=== PATIENT | female | born 1960 | race Caucasian/White ===

== ENCOUNTER → 2019-10-10 | Outpatient (CLI) | payer MEDICARE ==
--- NOTE | 2019-10-11 10:28 | MM ---
Reason for exam: screening (asymptomatic). Last mammogram was performed 17 years and 10 months ago. History: Patient is postmenopausal and has history of other cancer at age 41. Core biopsy of the left breast. Benign excisional biopsy of the right breast. Physical Findings: A clinical breast exam by your physician is recommended on an annual basis and results should be correlated with mammographic findings. MG 3D Screening Mammo W/Cad Bilateral CC and MLO view(s) were taken. No prior studies available for comparison. The breast tissue is heterogeneously dense. This may lower the sensitivity of mammography. Finding: There is a 6 mm circumscribed round mass located 9-10cm from the nipple in the upper outer quadrant of the right breast, suspect benign lymph node but advise ultrasound to confirm without prior mammogram. Previous mammotome biopsy in the left breast. Asymmetric breast tissue left breast at clip. ASSESSMENT: Incomplete: need additional imaging evaluation, BI-RAD 0 RECOMMENDATION: Ultrasound of the right breast. [facility] will attempt to contact patient to return for ultrasound.
== END | disposition home or self-care (01) ==
LOC: RADMAMWWP 11:19
PROVIDERS: ATTEND Family Medicine
DX: Z12.31 Encounter for screening mammogram for malignant neoplasm of breast (principal)
CPT/HCPCS: 77063; 77067

== ENCOUNTER → 2019-10-20 | Outpatient (CLI) | payer MEDICARE ==
--- NOTE | 2019-10-20 10:53 | USB ---
Reason for exam: additional evaluation requested from abnormal screening. History: Patient is postmenopausal and has history of other cancer at age 41. Core biopsy of the left breast. Benign excisional biopsy of the right breast. Physical Findings: Nurse did not find any significant physical abnormalities on exam. US Breast Workup Limited RT Right limited breast ultrasound including focal area of concern, retroareolar and axilla demonstrates a 5 x 2 x 3mm oval, lymph node at 10 o'clock corresponds with mammogram and a 10 x 4mm oval lymph node at the axilla tail. These results were verbally communicated with the patient and result sheet given to the patient on 10/20/19. ASSESSMENT: Benign, BI-RAD 2 RECOMMENDATION: Return to routine screening mammogram schedule for both breasts.
== END | disposition home or self-care (01) ==
LOC: RADUSWWP 10:11
PROVIDERS: ATTEND Family Medicine
DX: R92.8 Other abnormal and inconclusive findings on diagnostic imaging of breast (principal)

== ENCOUNTER → 2020-02-29 | Outpatient (CLI) | payer MEDICARE ==
--- NOTE | 2020-02-29 16:07 | US ---
EXAMINATION TYPE: US venous doppler duplex LE LT DATE OF EXAM: 02/29/2020 3:50 PM COMPARISON: NONE CLINICAL HISTORY: 59-year-old female R60.6 EDEMA. Localized swelling and discoloration left LE medial ly after dog ran into leg SIDE PERFORMED: Left TECHNIQUE: The lower extremity deep venous system is examined utilizing real time linear array sonog jon with graded compression, doppler sonography and color-flow sonography. FINDINGS: VESSELS IMAGED: Common Femoral Vein Deep Femoral Vein Greater Saphenous Vein * Femoral Vein Popliteal Vein Small Saphenous Vein * Proximal Calf Veins (* superficial vessels) Left Leg: Negative for DVT. Meeting Planner notes: Complex fluid area is seen at lower left medial at palpable = 6.2 x 4.5 x 1.0cm. L eft groin lymph node is also seen = 2.6 x 1.7 x 0.7cm. While this is mildly enlarged, the cortex is very uniform and thin. IMPRESSION: 1. No evidence for DVT within the left lower extremity imaged from the groin to the upper calf. 2. Complex fluid within the subcutaneous tissues measuring 2.6 x 1.7 x 0.7 cm medial leg. Correlate f or hematoma or abscess. This can be followed clinically to ensure gradual involution.
== END | disposition home or self-care (01) ==
LOC: RADUSWWP 15:24
PROVIDERS: ATTEND Family Medicine
DX: R60.0 Localized edema (principal)

== ENCOUNTER → 2020-06-19 | Outpatient (CLI) | payer MEDICARE ==
[2020-06-19 22:43] LABS: Albumin 2.6 g/dL (3.80-4.90); Albumin/Globulin Ratio 0.93 (1.60-3.17); Anion Gap 7.1 mmol/L (4.00-12.00); BUN/Creat Ratio 15.56 Ratio (12.00-20.00); Calcium 8.2 mg/dL (8.7-10.3); Carbon Dioxide 28.9 mmol/L (21.6-31.8); Globulin 2.8 g/dL (1.6-3.3); Potassium 5.7 mmol/L (3.5-5.5); Total Bilirubin 0.5 mg/dL (0.2-1.2); Total Protein 5.4 g/dL (6.2-8.2)
== END | disposition home or self-care (01) ==
LOC: LABWHC1 09:47
PROVIDERS: ATTEND Nurse Practitioner Adult Health
DX: R60.0 Localized edema (principal)
CPT/HCPCS: 36415; 80053; 83880

== ENCOUNTER 2020-10-16 14:21 | Inpatient (IN) | payer MEDICARE ==
[2020-10-16] MEDS ORDERED: SODIUM CHLORIDE 0.9% 500 ML 500 ML IV ONE (14:27)
[2020-10-16] MEDS ORDERED: NALOXONE 0.4 MG/ML 1 ML VIAL IM STA (14:27)
[2020-10-16] MEDS ORDERED: SODIUM CHLORIDE 0.9% 1,000 ML IV ONE ×2 (14:27→18:11)
[2020-10-16 14:33] LABS: Glucose,Whole Blood 64 mg/dL (75-99)
[2020-10-16 14:46] LABS: Glucose,Whole Blood 140 mg/dL (75-99)
[2020-10-16] MEDS: DEXTROSE 50% SYRINGE 50 ML IVP STA (14:58)
[2020-10-16 15:03] LABS: Appearance,Urine Cloudy (Clear); Bilirubin,Urine 1+ (Negative); Blood,Urine Negative (Negative); Color,Urine Dark Brown; Glucose,Urine (UA) Negative (Negative); Hyaline Casts,Urine 1 /lpf (0-2); Ketones,Urine Negative (Negative); Leukocyte Esterase,Urine Negative (Negative); Mucus,Urine Rare /hpf; Nitrite,Urine Negative (Negative); PH, Urine 5.5 (5.0-8.0); Protein,Urine Negative (Negative); RBC,Urine 2 /hpf (0-5); Specific Gravity,Urine 1.019 (1.001-1.035); Squamous Epithelial Cell,Urine <1 /hpf (0-4); WBC,Urine 5 /hpf (0-5)
--- NOTE | 2020-10-16 15:07 | ED ---
General Adult HPI - General Chief complaint: Altered Mental Status Stated complaint: unresponsive Time Seen by Provider: 10/16/20 14:25 Source: patient, EMS, RN notes reviewed, old records reviewed Mode of arrival: EMS - History of Present Illness Initial comments: This is a 60-year-old female presents emergency Department because she has been unresponsive. Patient has a history of pancreatic cancer per EMS the did not know what stage it was. Patient is unable to give any history. All history is from EMS. They stated that last night the patient was fine and this morning when woke up she has been unresponsive for the last 6 hours and he decided to call the ambulance after 6 hours. According to the the patient is not been able to verbally respond were but only will respond to some tactile stimulation and she would only responded with a groan hormone. There's been no history of any recent fevers. - Related Data Home Medications Medication Instructions Recorded Confirmed buprenorphine HCL [Subutex] 8 mg SL BID 09/16/15 10/16/20 levETIRAcetam [Keppra] 750 mg PO BID 09/16/15 10/16/20 Cholestyramine (with Sugar) 4 gm PO QID 10/16/20 10/16/20 [Cholestyramine Packet] Cyclobenzaprine [Flexeril] 10 mg PO TID PRN 10/16/20 10/16/20 Triamterene-Hctz 37.5-25Mg 1 cap PO DAILY 10/16/20 10/16/20 [Dyazide 37.5-25 Capsule] clonazePAM 1 mg PO TID 10/16/20 10/16/20 Allergies Allergy/AdvReac Type Severity Reaction Status Date / Time NSAIDS (Non-Steroidal Allergy Unknown Verified 10/16/20 15:46 Anti-Inflamma steroids Allergy Unknown Uncoded 09/16/15 18:44 Review of Systems ROS Statement: Those systems with pertinent positive or pertinent negative responses have been documented in the HPI. ROS Other: All systems not noted in ROS Statement are negative. Past Medical History Past Medical History: Cancer, Memory Impairment, Osteoarthritis (OA), Seizure Disorder Additional Past Medical History / Comment(s): Annamaria Stoll syndrome, pancreatic cancer,stomach cancer History of Any Multi-Drug Resistant Organisms: None Reported Past Surgical History: Cholecystectomy, Hysterectomy Additional Past Surgical History / Comment(s): gastrectomy and head of pancreas removed bunionectomy to be bilateral bilateral tubal ligation Past Psychological History: Anxiety, Depression Smoking Status: Unknown if ever smoked Past Alcohol Use History: None Reported Past Drug Use History: Marijuana General Exam - General Exam Comments Initial Comments: GENERAL: Patient is well-developed and well-nourished. Patient is nontoxic and well- hydrated and is in no acute distress. ENT: Neck is soft and supple. No significant lymphadenopathy is noted. Oropharynx is clear. Dry mucous membranes. Neck has full range of motion without eliciting any pain. EYES: The sclera were anicteric and conjunctiva were pink and moist. Extraocular movements were intact and pupils were equal round and reactive to light. Eyelids were unremarkable. PULMONARY: Unlabored respirations. Good breath sounds bilaterally. No audible rales rhonchi or wheezing was noted. CARDIOVASCULAR: There is a regular rate and rhythm without any murmurs gallops or rubs. ABDOMEN: Soft and nontender with normal bowel sounds. SKIN: Skin is clear with no lesions or rashes and otherwise unremarkable. NEUROLOGIC: Patient is not alert she is only responsive to painful stimuli. MUSCULOSKELETAL: Normal extremities with adequate strength and full range of motion. LYMPHATICS: No significant lymphadenopathy is noted PSYCHIATRIC: Unable to evaluate Course Vital Signs 10/16/20 10/16/20 10/16/20 14:24 14:58 15:01 Temperature 97.9 F Pulse Rate 98 110 H Respiratory 10 L 10 L 12 Rate Blood Pressure 93/58 106/73 O2 Sat by Pulse 98 97 Oximetry 10/16/20 10/16/20 16:01 17:50 Temperature Pulse Rate 96 108 H Respiratory 12 14 Rate Blood Pressure 106/65 113/74 O2 Sat by Pulse 98 94 L Oximetry Medical Decision Making - Medical Decision Making EKG shows sinus tachycardia at 170s per minute TN interval 138 QRS 78 QT interval 324 QTC is 432. Patient's EKG shows no ST segment elevation or depression. CT of the brain showed no acute abnormality. Chest x-ray showed patchy but he is alert and infiltrate. According to the there was no signs of any cough or difficulty breathing yesterday or today I spoke with Dr. Warren he agreed to admit the patient admitted the patient remaining orders. CAT scan of the abdomen pelvis was not done because the patient was unable to tolerate dye Patient was given lactulose in the emergency department - Lab Data Result diagrams: 10/16/20 14:50 10/16/20 14:50 Lab Results 10/16/20 10/16/20 10/16/20 Range/Units 14:26 14:44 14:50 WBC 13.0 H (3.8-10.6) k/uL RBC 3.85 (3.80-5.40) m/uL Hgb 12.1 (11.4-16.0) gm/dL Hct 37.2 (34.0-46.0) % MCV 96.6 (80.0-100.0) fL MCH 31.4 (25.0-35.0) pg MCHC 32.5 (31.0-37.0) g/dL RDW 13.0 (11.5-15.5) % Plt Count 55 L (150-450) k/uL MPV 10.1 Neutrophils % 89 % Lymphocytes % 8 % Monocytes % 2 % Eosinophils % 1 % Basophils % 0 % Neutrophils # 11.5 H (1.3-7.7) k/uL Lymphocytes # 1.0 (1.0-4.8) k/uL Monocytes # 0.3 (0-1.0) k/uL Eosinophils # 0.1 (0-0.7) k/uL Basophils # 0.0 (0-0.2) k/uL Manual Slide Review Performed Poikilocytosis (manual Present Target Cells Present Stomatocytes Present Crenated Cell Present PT (9.0-12.0) sec INR (<1.2) APTT (22.0-30.0) sec Sodium (137-145) mmol/L Potassium (3.5-5.1) mmol/L Chloride (98-107) mmol/L Carbon Dioxide (22-30) mmol/L Anion Gap mmol/L BUN (7-17) mg/dL Creatinine (0.52-1.04) mg/dL Est GFR (CKD-EPI)AfAm (>60 ml/min/1.73 sqM) Est GFR (CKD-EPI)NonAf (>60 ml/min/1.73 sqM) Glucose (74-99) mg/dL POC Glucose (mg/dL) 64 L 140 H (75-99) mg/dL POC Glu Skein Tier ID Singer, Brielle Singer, Brielle Calcium (8.4-10.2) mg/dL Total Bilirubin (0.2-1.3) mg/dL AST (14-36) U/L ALT (4-34) U/L Alkaline Phosphatase (38-126) U/L Ammonia (<30) umol/L Troponin I (0.000-0.034) ng/mL Total Protein (6.3-8.2) g/dL Albumin (3.5-5.0) g/dL Urine Color Urine Appearance (Clear) Urine pH (5.0-8.0) Ur Specific [place] (1.001-1.035) Urine Protein (Negative) Urine Glucose (UA) (Negative) Urine Ketones (Negative) Urine Blood (Negative) Urine Nitrite (Negative) Urine Bilirubin (Negative) Urine Urobilinogen (<2.0) mg/dL Ur Leukocyte Esterase (Negative) Urine RBC (0-5) /hpf Urine WBC (0-5) /hpf Ur Squamous Epith Cells (0-4) /hpf Hyaline Casts (0-2) /lpf Urine Mucus (None) /hpf Urine Opiates Screen (NotDetected) Ur Oxycodone Screen (NotDetected) Urine Methadone Screen (NotDetected) Ur Propoxyphene Screen (NotDetected) Ur Barbiturates Screen (NotDetected) U Tricyclic Antidepress (NotDetected) Ur Phencyclidine Scrn (NotDetected) Ur Amphetamines Screen (NotDetected) U Methamphetamines Scrn (NotDetected) U Benzodiazepines Scrn (NotDetected) Urine Cocaine Screen (NotDetected) U Marijuana (THC) Screen (NotDetected) 10/16/20 10/16/20 10/16/20 Range/Units 14:50 14:50 14:50 WBC (3.8-10.6) k/uL RBC (3.80-5.40) m/uL Hgb (11.4-16.0) gm/dL Hct (34.0-46.0) % MCV (80.0-100.0) fL MCH (25.0-35.0) pg MCHC (31.0-37.0) g/dL RDW (11.5-15.5) % Plt Count (150-450) k/uL MPV Neutrophils % % Lymphocytes % % Monocytes % % Eosinophils % % Basophils % % Neutrophils # (1.3-7.7) k/uL Lymphocytes # (1.0-4.8) k/uL Monocytes # (0-1.0) k/uL Eosinophils # (0-0.7) k/uL Basophils # (0-0.2) k/uL Manual Slide Review Poikilocytosis (manual Target Cells Stomatocytes Crenated Cell PT 20.2 H (9.0-12.0) sec INR 2.1 H (<1.2) APTT 43.1 H (22.0-30.0) sec Sodium 134 L (137-145) mmol/L Potassium 4.4 (3.5-5.1) mmol/L Chloride 103 (98-107) mmol/L Carbon Dioxide 27 (22-30) mmol/L Anion Gap 4 mmol/L BUN 14 (7-17) mg/dL Creatinine 1.47 H (0.52-1.04) mg/dL Est GFR (CKD-EPI)AfAm 44 (>60 ml/min/1.73 sqM) Est GFR (CKD-EPI)NonAf 38 (>60 ml/min/1.73 sqM) Glucose 175 H (74-99) mg/dL POC Glucose (mg/dL) (75-99) mg/dL POC Glu Skein Tier ID Calcium 6.5 L (8.4-10.2) mg/dL Total Bilirubin 2.1 H (0.2-1.3) mg/dL AST 65 H (14-36) U/L ALT 71 H (4-34) U/L Alkaline Phosphatase 215 H (38-126) U/L Ammonia (<30) umol/L Troponin I (0.000-0.034) ng/mL Total Protein 3.7 L (6.3-8.2) g/dL Albumin 1.4 L (3.5-5.0) g/dL Urine Color Dark Brown Urine Appearance Cloudy H (Clear) Urine pH 5.5 (5.0-8.0) Ur Specific [place] 1.019 (1.001-1.035) Urine Protein Negative (Negative) Urine Glucose (UA) Negative (Negative) Urine Ketones Negative (Negative) Urine Blood Negative (Negative) Urine Nitrite Negative (Negative) Urine Bilirubin 1+ H (Negative) Urine Urobilinogen 3.0 (<2.0) mg/dL Ur Leukocyte Esterase Negative (Negative) Urine RBC 2 (0-5) /hpf Urine WBC 5 (0-5) /hpf Ur Squamous Epith Cells <1 (0-4) /hpf Hyaline Casts 1 (0-2) /lpf Urine Mucus Rare H (None) /hpf Urine Opiates Screen Not Detected (NotDetected) Ur Oxycodone Screen Not Detected (NotDetected) Urine Methadone Screen Not Detected (NotDetected) Ur Propoxyphene Screen Not Detected (NotDetected) Ur Barbiturates Screen Not Detected (NotDetected) U Tricyclic Antidepress Detected H (NotDetected) Ur Phencyclidine Scrn Not Detected (NotDetected) Ur Amphetamines Screen Not Detected (NotDetected) U Methamphetamines Scrn Not Detected (NotDetected) U Benzodiazepines Scrn Not Detected (NotDetected) Urine Cocaine Screen Not Detected (NotDetected) U Marijuana (THC) Screen Not Detected (NotDetected) 10/16/20 10/16/20 Range/Units 14:50 14:50 WBC (3.8-10.6) k/uL RBC (3.80-5.40) m/uL Hgb (11.4-16.0) gm/dL Hct (34.0-46.0) % MCV (80.0-100.0) fL MCH (25.0-35.0) pg MCHC (31.0-37.0) g/dL RDW (11.5-15.5) % Plt Count (150-450) k/uL MPV Neutrophils % % Lymphocytes % % Monocytes % % Eosinophils % % Basophils % % Neutrophils # (1.3-7.7) k/uL Lymphocytes # (1.0-4.8) k/uL Monocytes # (0-1.0) k/uL Eosinophils # (0-0.7) k/uL Basophils # (0-0.2) k/uL Manual Slide Review Poikilocytosis (manual Target Cells Stomatocytes Crenated Cell PT (9.0-12.0) sec INR (<1.2) APTT (22.0-30.0) sec Sodium (137-145) mmol/L Potassium (3.5-5.1) mmol/L Chloride (98-107) mmol/L Carbon Dioxide (22-30) mmol/L Anion Gap mmol/L BUN (7-17) mg/dL Creatinine (0.52-1.04) mg/dL Est GFR (CKD-EPI)AfAm (>60 ml/min/1.73 sqM) Est GFR (CKD-EPI)NonAf (>60 ml/min/1.73 sqM) Glucose (74-99) mg/dL POC Glucose (mg/dL) (75-99) mg/dL POC Glu Skein Tier ID Calcium (8.4-10.2) mg/dL Total Bilirubin (0.2-1.3) mg/dL AST (14-36) U/L ALT (4-34) U/L Alkaline Phosphatase (38-126) U/L Ammonia 129 H (<30) umol/L Troponin I 0.069 H* (0.000-0.034) ng/mL Total Protein (6.3-8.2) g/dL Albumin (3.5-5.0) g/dL Urine Color Urine Appearance (Clear) Urine pH (5.0-8.0) Ur Specific [place] (1.001-1.035) Urine Protein (Negative) Urine Glucose (UA) (Negative) Urine Ketones (Negative) Urine Blood (Negative) Urine Nitrite (Negative) Urine Bilirubin (Negative) Urine Urobilinogen (<2.0) mg/dL Ur Leukocyte Esterase (Negative) Urine RBC (0-5) /hpf Urine WBC (0-5) /hpf Ur Squamous Epith Cells (0-4) /hpf Hyaline Casts (0-2) /lpf Urine Mucus (None) /hpf Urine Opiates Screen (NotDetected) Ur Oxycodone Screen (NotDetected) Urine Methadone Screen (NotDetected) Ur Propoxyphene Screen (NotDetected) Ur Barbiturates Screen (NotDetected) U Tricyclic Antidepress (NotDetected) Ur Phencyclidine Scrn (NotDetected) Ur Amphetamines Screen (NotDetected) U Methamphetamines Scrn (NotDetected) U Benzodiazepines Scrn (NotDetected) Urine Cocaine Screen (NotDetected) U Marijuana (THC) Screen (NotDetected) Critical Care Time Critical Care Time: Yes Total Critical Care Time: 35 Disposition Clinical Impression: Hepatic encephalopathy, Elevated troponin, Hypocalcemia, Elevated liver enzymes, Unresponsive, Renal insufficiency Disposition: ADMITTED IP TO THIS HOSP Referrals: None,Stated [REFERRING] - 1-2 days Time of Disposition: 18:09
[2020-10-16 15:08] LABS: Albumin 1.4 g/dL (3.5-5.0); Calcium 6.5 mg/dL (8.4-10.2); Potassium 4.4 mmol/L (3.5-5.1); Total Bilirubin 2.1 mg/dL (0.2-1.3); Total Protein 3.7 g/dL (6.3-8.2)
[2020-10-16 15:10] LABS: INR 2.1 (<1.2); Partial Thromboplastin Time 43.1 sec (22.0-30.0); Prothrombin Time 20.2 sec (9.0-12.0)
[2020-10-16 15:11] LABS: Amphetamine Screen,Urine Not Detected (NotDetected); Barbiturate Screen,Urine Not Detected (NotDetected); Benzodiazepines Screen,Urine Not Detected (NotDetected); Cocaine Screen,Urine Not Detected (NotDetected); Methadone Screen, Urine Not Detected (NotDetected); Opiate Screen,Urine Not Detected (NotDetected); Oxycodone Screen, Urine Not Detected (NotDetected); Phencyclidine Screen,Urine Not Detected (NotDetected); Tricyclic Antidepressant,Urine Detected (NotDetected); Urn Cannabinoid Scrn Not Detected (NotDetected)
[2020-10-16 15:19] LABS: Basophils % (A) 0 %; Eosinophils # (A) 0.1 k/uL (0-0.7); Eosinophils % (A) 1 %; HCT 37.2 % (34.0-46.0); HGB 12.1 gm/dL (11.4-16.0); Lymphocytes % (A) 8 %; MCH 31.4 pg (25.0-35.0); MCHC 32.5 g/dL (31.0-37.0); MCV 96.6 fL (80.0-100.0); Mean Platelet Volume 10.1; Monocytes # (A) 0.3 k/uL (0-1.0); Monocytes % (A) 2 %; Neutrophils # (A) 11.5 k/uL (1.3-7.7); Neutrophils % (A) 89 %; RBC 3.85 m/uL (3.80-5.40)
--- NOTE | 2020-10-16 15:24 | XR ---
EXAMINATION TYPE: XR chest 1V portable DATE OF EXAM: 10/16/2020 COMPARISON: NONE HISTORY: Altered mental status and weakness. TECHNIQUE: Single AP portable frontal view of the chest is obtained. FINDINGS: There is low lung volumes and patchy left basilar opacity. Suspect scattered right mid an d basilar linear atelectasis. No pneumothorax seen bilaterally. The cardiac silhouette size is within normal limits with atherosclerotic change aortic knob. Underlying scoliosis. Cholecystectomy clips. IMPRESSION: Patchy right basilar linear atelectatic changes. Slightly more suspicious left basilar a cute infiltrate and/or atelectasis with suspected small to tiny left pleural effusion.
--- NOTE | 2020-10-16 15:29 | CT ---
EXAMINATION TYPE: CT brain wo con DATE OF EXAM: 10/16/2020 HISTORY: Unresponsive, altered mental status, history of pancreatic cancer. CT DLP: 2107.4 mGycm. Automated Exposure Control for Dose Reduction was Utilized. TECHNIQUE: CT scan of the head is performed without contrast. COMPARISON: MRI brain January 12, 2012 FINDINGS: There is no acute intracranial hemorrhage or midline shift identified. There is mild diff use ventricular and sulcal prominence consistent with diffuse age-related cerebral atrophy. There is mild low-attenuation in the periventricular white matter consistent with chronic small vessel ischem ic change. Nasal septum deviated to left of midline. The globes are intact and the visualized sinuse s are clear. IMPRESSION: No acute intracranial hemorrhage or midline shift. There is mild diffuse cerebral atrop hy and chronic small vessel ischemic change noted.
[2020-10-16 16:00] LABS: Stomatocytes Present
[2020-10-16 16:01] LABS: Crenated RBC Present; Platelet Count 55 k/uL (150-450); Poikilocytosis (M) Present; Target Cells Present
[2020-10-16] MEDS ORDERED: CALCIUM CHLORIDE 100 MG/ML 10 ML SYRINGE IVP STA (16:13)
[2020-10-16] MEDS ORDERED: LACTULOSE 20 GM/30 ML CUP PO ONE (16:13)
--- NOTE | 2020-10-16 17:18 | XR ---
EXAMINATION TYPE: XR chest 1V DATE OF EXAM: 10/16/2020 COMPARISON: Earlier same day. HISTORY: NG tube placement. TECHNIQUE: Single frontal view of the chest is obtained. FINDINGS: There is interval placement of an NG tube with single looping of the distal portion and ti p overlying the distal esophagus. There are unchanged mild perihilar and bibasilar opacities. No pleu ral effusion, or pneumothorax seen. The cardiac silhouette size is within normal limits. The osseo us structures are intact. IMPRESSION: NG tube with tip overlying the distal esophagus. Recommend advancing at least 5 cm. Otherwise no significant change.
[2020-10-16 20:02] LABS: Glucose,Whole Blood 98 mg/dL (75-99)
[2020-10-16] MEDS ORDERED: NALOXONE 0.4 MG/ML 1 ML VIAL IV PRN (20:48)
[2020-10-16 20:54] LABS: ABG Base Excess 5.4 mmol/L; ABG HCO3 29 mmol/L (21-25); ABG Oxygen Saturation 83.4 % (94-97); ABG PCO2 37 mmHg (35-45); ABG PH 7.49 (7.35-7.45); ABG TCO2 30 mmol/L (19-24); Allen Test Performed? Yes
[2020-10-16 21:29] LABS: ABG PO2 52 mmHg (83-108)
[2020-10-16] MEDS: PIPERACILLIN-TAZOBACTAM 3.375 GM in SODIUM CHLORIDE 0.9% 100 ML IVPB SCH (22:25)
[2020-10-16] MEDS: levETIRAcetam IV 750 MG in SODIUM CHLORIDE 0.9% 100 ML IVPB SCH (22:25)
[2020-10-16] MEDS: LACTULOSE 20 GM/30 ML CUP PO SCH ×2 (22:25→22:31)
[2020-10-16] MEDS: SODIUM CHLORIDE 0.9% 1,000 ML IV SCH (22:26)
--- NOTE | 2020-10-17 00:05 | XR ---
EXAMINATION TYPE: XR chest 1V portable DATE OF EXAM: 10/16/2020 COMPARISON: Today HISTORY: Short of breath There is nasogastric tube with the tip overlying the gastroesophageal junction. There is pulmonary in terstitial and airspace edema. There is slight blunting left costophrenic angle. There is chest leads . IMPRESSION: There is pulmonary edema significantly increased compared to the exam 6 hours ago. This c ould be developing RDS. Heart size is normal. Nasogastric tube has a tip over the left upper quadrant and probably at the gastroesophageal junction. Tube is not folded on itself.
[2020-10-17] MEDS ORDERED: PROPOFOL 10 MG/ML 20 ML VIAL IV ONE (01:50)
[2020-10-17] MEDS ORDERED: NOREPINEPHRIN 4 MG-0.9% NS PMX 4 MG/250 ML ML IV ONE ×2 (01:57→17:59)
[2020-10-17] MEDS ORDERED: propofoL 50 ML IV ONE ×5 (02:01→15:36)
[2020-10-17] MEDS ORDERED: FUROSEMIDE 10 MG/ML 4 ML VIAL IV STA (02:14)
--- NOTE | 2020-10-17 03:17 | XR ---
EXAM: XR Chest, 1 View CLINICAL HISTORY: ITS.REASON XR Reason: ICU Management TECHNIQUE: Frontal view of the chest. COMPARISON: Yesterday FINDINGS: Lungs: Moderate amount of airspace opacities in both lungs, more on the left, similar. Pleural space: Unremarkable. No pneumothorax. Mediastinum: Unremarkable. Bones/joints: Osteopenia. Vasculature: Calcified aorta. Tubes, lines and devices: Tip of endotracheal tube is about 5 cm above the alvin. Tip of enteric tube is at the GE junction. IMPRESSION: 1. Tip of endotracheal tube is about 5 cm above the alvin. 2. Tip of enteric tube is at the GE junction. Recommend advancement by at least 12 cm 3. No substantial change in cardiopulmonary findings
[2020-10-17 04:39] LABS: HCT 41.4 % (34.0-46.0); HGB 13.2 gm/dL (11.4-16.0); MCH 32.2 pg (25.0-35.0); MCV 100.6 fL (80.0-100.0); Mean Platelet Volume 10.6; RBC 4.11 m/uL (3.80-5.40); RDW 12.6 % (11.5-15.5)
[2020-10-17 04:41] LABS: Platelet Count 217 k/uL (150-450)
[2020-10-17 04:43] LABS: INR 1.3 (<1.2); Partial Thromboplastin Time 43.9 sec (22.0-30.0); Prothrombin Time 13.6 sec (9.0-12.0)
[2020-10-17 04:44] LABS: Albumin 1.4 g/dL (3.5-5.0); Calcium 7.2 mg/dL (8.4-10.2); Magnesium 1.8 mg/dL (1.6-2.3); Phosphorus 4.7 mg/dL (2.5-4.5); Potassium 3.9 mmol/L (3.5-5.1); Total Bilirubin 3.1 mg/dL (0.2-1.3); Total Protein 3.8 g/dL (6.3-8.2)
[2020-10-17 04:46] LABS: ABG Base Excess -2.3 mmol/L; ABG HCO3 22 mmol/L (21-25); ABG Oxygen Saturation 94.5 % (94-97); ABG PCO2 35 mmHg (35-45); ABG PH 7.41 (7.35-7.45); ABG PO2 101 mmHg (83-108); ABG TCO2 23 mmol/L (19-24); Allen Test Performed? Yes
--- NOTE | 2020-10-17 04:54 | ED ---
Medical Decision Making - Medical Decision Making This addendum is a procedure note. I was called to the ICU for central line placement. Patient had been intubated and was requiring emergency IV access. Patient is a poor peripheral access and requiring multiple medications including propofol infusion and possibly requiring pressor support. Consent is emergent. Please see the procedure note There was a left-sided pneumothorax following the central line. Thoravent pneumothorax catheter was placed. An x-ray following this did not show reinflation of the lung, however the suction tube had been clamped prior to the x-ray. The tube was unclamped and a repeat x-ray did show reinflation of the lung. - Lab Data Result diagrams: 10/17/20 04:23 10/17/20 04:23 Lab Results 10/16/20 10/16/20 10/16/20 Range/Units 14:26 14:44 14:50 WBC 13.0 H (3.8-10.6) k/uL RBC 3.85 (3.80-5.40) m/uL Hgb 12.1 (11.4-16.0) gm/dL Hct 37.2 (34.0-46.0) % MCV 96.6 (80.0-100.0) fL MCH 31.4 (25.0-35.0) pg MCHC 32.5 (31.0-37.0) g/dL RDW 13.0 (11.5-15.5) % Plt Count 55 L (150-450) k/uL MPV 10.1 Neutrophils % 89 % Lymphocytes % 8 % Monocytes % 2 % Eosinophils % 1 % Basophils % 0 % Neutrophils # 11.5 H (1.3-7.7) k/uL Lymphocytes # 1.0 (1.0-4.8) k/uL Monocytes # 0.3 (0-1.0) k/uL Eosinophils # 0.1 (0-0.7) k/uL Basophils # 0.0 (0-0.2) k/uL Manual Slide Review Performed Poikilocytosis (manual Present Target Cells Present Stomatocytes Present Crenated Cell Present PT (9.0-12.0) sec INR (<1.2) APTT (22.0-30.0) sec Sodium (137-145) mmol/L Potassium (3.5-5.1) mmol/L Chloride (98-107) mmol/L Carbon Dioxide (22-30) mmol/L Anion Gap mmol/L BUN (7-17) mg/dL Creatinine (0.52-1.04) mg/dL Est GFR (CKD-EPI)AfAm (>60 ml/min/1.73 sqM) Est GFR (CKD-EPI)NonAf (>60 ml/min/1.73 sqM) Glucose (74-99) mg/dL POC Glucose (mg/dL) 64 L 140 H (75-99) mg/dL POC Glu Concession Supervisor ID Lucrecia, Brielle Singer, Brielle Calcium (8.4-10.2) mg/dL Total Bilirubin (0.2-1.3) mg/dL AST (14-36) U/L ALT (4-34) U/L Alkaline Phosphatase (38-126) U/L Ammonia (<30) umol/L Troponin I (0.000-0.034) ng/mL Total Protein (6.3-8.2) g/dL Albumin (3.5-5.0) g/dL Urine Color Urine Appearance (Clear) Urine pH (5.0-8.0) Ur Specific [place] (1.001-1.035) Urine Protein (Negative) Urine Glucose (UA) (Negative) Urine Ketones (Negative) Urine Blood (Negative) Urine Nitrite (Negative) Urine Bilirubin (Negative) Urine Urobilinogen (<2.0) mg/dL Ur Leukocyte Esterase (Negative) Urine RBC (0-5) /hpf Urine WBC (0-5) /hpf Ur Squamous Epith Cells (0-4) /hpf Hyaline Casts (0-2) /lpf Urine Mucus (None) /hpf Urine Opiates Screen (NotDetected) Ur Oxycodone Screen (NotDetected) Urine Methadone Screen (NotDetected) Ur Propoxyphene Screen (NotDetected) Ur Barbiturates Screen (NotDetected) U Tricyclic Antidepress (NotDetected) Ur Phencyclidine Scrn (NotDetected) Ur Amphetamines Screen (NotDetected) U Methamphetamines Scrn (NotDetected) U Benzodiazepines Scrn (NotDetected) Urine Cocaine Screen (NotDetected) U Marijuana (THC) Screen (NotDetected) Coronavirus (PCR) (Not Detectd) 10/16/20 10/16/20 10/16/20 Range/Units 14:50 14:50 14:50 WBC (3.8-10.6) k/uL RBC (3.80-5.40) m/uL Hgb (11.4-16.0) gm/dL Hct (34.0-46.0) % MCV (80.0-100.0) fL MCH (25.0-35.0) pg MCHC (31.0-37.0) g/dL RDW (11.5-15.5) % Plt Count (150-450) k/uL MPV Neutrophils % % Lymphocytes % % Monocytes % % Eosinophils % % Basophils % % Neutrophils # (1.3-7.7) k/uL Lymphocytes # (1.0-4.8) k/uL Monocytes # (0-1.0) k/uL Eosinophils # (0-0.7) k/uL Basophils # (0-0.2) k/uL Manual Slide Review Poikilocytosis (manual Target Cells Stomatocytes Crenated Cell PT 20.2 H (9.0-12.0) sec INR 2.1 H (<1.2) APTT 43.1 H (22.0-30.0) sec Sodium 134 L (137-145) mmol/L Potassium 4.4 (3.5-5.1) mmol/L Chloride 103 (98-107) mmol/L Carbon Dioxide 27 (22-30) mmol/L Anion Gap 4 mmol/L BUN 14 (7-17) mg/dL Creatinine 1.47 H (0.52-1.04) mg/dL Est GFR (CKD-EPI)AfAm 44 (>60 ml/min/1.73 sqM) Est GFR (CKD-EPI)NonAf 38 (>60 ml/min/1.73 sqM) Glucose 175 H (74-99) mg/dL POC Glucose (mg/dL) (75-99) mg/dL POC Glu Concession Supervisor ID Calcium 6.5 L (8.4-10.2) mg/dL Total Bilirubin 2.1 H (0.2-1.3) mg/dL AST 65 H (14-36) U/L ALT 71 H (4-34) U/L Alkaline Phosphatase 215 H (38-126) U/L Ammonia (<30) umol/L Troponin I (0.000-0.034) ng/mL Total Protein 3.7 L (6.3-8.2) g/dL Albumin 1.4 L (3.5-5.0) g/dL Urine Color Dark Brown Urine Appearance Cloudy H (Clear) Urine pH 5.5 (5.0-8.0) Ur Specific [place] 1.019 (1.001-1.035) Urine Protein Negative (Negative) Urine Glucose (UA) Negative (Negative) Urine Ketones Negative (Negative) Urine Blood Negative (Negative) Urine Nitrite Negative (Negative) Urine Bilirubin 1+ H (Negative) Urine Urobilinogen 3.0 (<2.0) mg/dL Ur Leukocyte Esterase Negative (Negative) Urine RBC 2 (0-5) /hpf Urine WBC 5 (0-5) /hpf Ur Squamous Epith Cells <1 (0-4) /hpf Hyaline Casts 1 (0-2) /lpf Urine Mucus Rare H (None) /hpf Urine Opiates Screen Not Detected (NotDetected) Ur Oxycodone Screen Not Detected (NotDetected) Urine Methadone Screen Not Detected (NotDetected) Ur Propoxyphene Screen Not Detected (NotDetected) Ur Barbiturates Screen Not Detected (NotDetected) U Tricyclic Antidepress Detected H (NotDetected) Ur Phencyclidine Scrn Not Detected (NotDetected) Ur Amphetamines Screen Not Detected (NotDetected) U Methamphetamines Scrn Not Detected (NotDetected) U Benzodiazepines Scrn Not Detected (NotDetected) Urine Cocaine Screen Not Detected (NotDetected) U Marijuana (THC) Screen Not Detected (NotDetected) Coronavirus (PCR) (Not Detectd) 10/16/20 10/16/20 10/16/20 Range/Units 14:50 14:50 17:37 WBC (3.8-10.6) k/uL RBC (3.80-5.40) m/uL Hgb (11.4-16.0) gm/dL Hct (34.0-46.0) % MCV (80.0-100.0) fL MCH (25.0-35.0) pg MCHC (31.0-37.0) g/dL RDW (11.5-15.5) % Plt Count (150-450) k/uL MPV Neutrophils % % Lymphocytes % % Monocytes % % Eosinophils % % Basophils % % Neutrophils # (1.3-7.7) k/uL Lymphocytes # (1.0-4.8) k/uL Monocytes # (0-1.0) k/uL Eosinophils # (0-0.7) k/uL Basophils # (0-0.2) k/uL Manual Slide Review Poikilocytosis (manual Target Cells Stomatocytes Crenated Cell PT (9.0-12.0) sec INR (<1.2) APTT (22.0-30.0) sec Sodium (137-145) mmol/L Potassium (3.5-5.1) mmol/L Chloride (98-107) mmol/L Carbon Dioxide (22-30) mmol/L Anion Gap mmol/L BUN (7-17) mg/dL Creatinine (0.52-1.04) mg/dL Est GFR (CKD-EPI)AfAm (>60 ml/min/1.73 sqM) Est GFR (CKD-EPI)NonAf (>60 ml/min/1.73 sqM) Glucose (74-99) mg/dL POC Glucose (mg/dL) (75-99) mg/dL POC Glu Concession Supervisor ID Calcium (8.4-10.2) mg/dL Total Bilirubin (0.2-1.3) mg/dL AST (14-36) U/L ALT (4-34) U/L Alkaline Phosphatase (38-126) U/L Ammonia 129 H (<30) umol/L Troponin I 0.069 H* (0.000-0.034) ng/mL Total Protein (6.3-8.2) g/dL Albumin (3.5-5.0) g/dL Urine Color Urine Appearance (Clear) Urine pH (5.0-8.0) Ur Specific [place] (1.001-1.035) Urine Protein (Negative) Urine Glucose (UA) (Negative) Urine Ketones (Negative) Urine Blood (Negative) Urine Nitrite (Negative) Urine Bilirubin (Negative) Urine Urobilinogen (<2.0) mg/dL Ur Leukocyte Esterase (Negative) Urine RBC (0-5) /hpf Urine WBC (0-5) /hpf Ur Squamous Epith Cells (0-4) /hpf Hyaline Casts (0-2) /lpf Urine Mucus (None) /hpf Urine Opiates Screen (NotDetected) Ur Oxycodone Screen (NotDetected) Urine Methadone Screen (NotDetected) Ur Propoxyphene Screen (NotDetected) Ur Barbiturates Screen (NotDetected) U Tricyclic Antidepress (NotDetected) Ur Phencyclidine Scrn (NotDetected) Ur Amphetamines Screen (NotDetected) U Methamphetamines Scrn (NotDetected) U Benzodiazepines Scrn (NotDetected) Urine Cocaine Screen (NotDetected) U Marijuana (THC) Screen (NotDetected) Coronavirus (PCR) Not Detected (Not Detectd) Disposition Clinical Impression: Hepatic encephalopathy, Elevated troponin, Hypocalcemia, Elevated liver enzymes, Unresponsive, Renal insufficiency Disposition: ADMITTED IP TO THIS [facility] Procedures - [place] Protocol (Time Out) Patient Identification (2 identifiers required): Chart, Arm Band Patient/Legal Front End Engineer has Confirmed: Identity, Procedure, Consent Site Marked: Not Applicable - Central Line Placement Left SC Consent Obtained: emergent situation Patient Placed on Monitor/Pulse Ox: Yes Prep: mask, gown, gloves Central Line Prep: Chlorhexidine scrub Local Anesthesia Used: Lidocaine 1% Central Line Lumen Inserted: triple Bloods Obtained for Lab: Yes Central Line Position: good blood return, all ports aspirated, flushed, capped, sutured in place with nylon Dressing Applied: Tegaderm Post Procedure X-Ray: tip of catheter in good position, pneumothorax seen Complications: pneumothorax - Chest Tube Insertion Consent Obtained: emergent situation Side of Procedure: left Indication: Pneumothorax Placed on monitor/pulse oximetry: Yes Site Prep: Chloroprep Local Anesthesia: Lidocaine 1% Insertion Site: Other (Anterior approach) Open into Pleural Space Using: Trocar Tube Size (Persian): Other (Thoravent) Returns: Air Sutured in Place: No (Adhesive dressing) Attached to Suction: Yes Type of Suction: Pleuravac Patient Tolerated Procedure: well, no complications
[2020-10-17 05:06] LABS: Band Neutrophils % 77 %; Lymphocytes # (M) 0.56 k/uL (1.0-4.8); Monocytes # (M) 0.14 k/uL (0-1.0); Neutrophils % (M) 13 %; Nucleated Red Blood Cells 0 /100 WBC (0-0); Total Cells Counted 200; Toxic Granulation Present; Toxic Vacuolation Present
[2020-10-17 05:07] LABS: Target Cells Present
--- NOTE | 2020-10-17 05:11 | XR ---
EXAM: XR Chest, 1 View CLINICAL HISTORY: ITS.REASON XR Reason: left IJ placement TECHNIQUE: Frontal view of the chest. COMPARISON: 10/16/2020 IMPRESSION: Left central line terminates in the cavoatrial junction. NG tube side port terminates in the mid esophagus. Recommend advancing 10 cm. ET tube terminates 3.9 cm from the alvin.
[2020-10-17] MEDS ORDERED: LIDOCAINE 2% (PF) 20 MG/ML 5 ML VIAL ONE (05:19)
--- NOTE | 2020-10-17 06:04 | XR ---
EXAM: XR Chest, 1 View CLINICAL HISTORY: ITS.REASON XR Reason: Thoravent placement TECHNIQUE: Frontal view of the chest. COMPARISON: 10/17/2020 IMPRESSION: Large left upper pneumothorax approximately 20-30%. Left-sided chest tube is in place. Feeding tube side-port is again in the midesophagus. Consider advancing 10 cm.
[2020-10-17] MEDS: DEXTROSE 50% SYRINGE 50 ML IVP STA ×2 (06:35→11:42)
--- NOTE | 2020-10-17 06:43 | XR ---
EXAM: XR Chest, 1 View CLINICAL HISTORY: ITS.REASON XR Reason: thoravent placement TECHNIQUE: Frontal view of the chest. COMPARISON: 10/17/2020 IMPRESSION: 1. Pneumothorax appears resolved on the left. Left-sided chest tube is in place. 2. NG tube is in better position, but the side-port is still at the GE junction. Recommend advancing 3-5 cm.
[2020-10-17 06:51] LABS: Glucose,Whole Blood 96 mg/dL (75-99)
--- NOTE | 2020-10-17 07:29 | P.CNPUL ---
History of Present Illness Consult date: 10/17/20 Chief complaint: Mental status change History of present illness: This is a 60-year-old female presents emergency Department because she has been unresponsive. 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 History is from EMS and the ED physcian who attended on the patient. They stated that last night the patient was fine and this morning when woke up she has been unresponsive for the last 6 hours and he decided to call the ambulance after 6 hours. According to the the patient is not been able to verbally respond were but only will respond to some tactile stimulation and she would only responded with a groan hormone. There's been no history of any recent fevers. No reported seizure activity. The blood work showed a normal white cell count of 13.0. Hemoglobin was at 12.1. Platelet count was low at 55. The patient is coagulopathic with a PT of 20, INR of 2.1 and a PTT of 43.1. Her BUN was 40 with a creatinine of 1.47. Sodium is at 134. LFTs were abnormal with an SGOT of 65, SGPT of 71 with an alkaline phosphatase of 215. Bilirubin was 2.1 with a calcium level of 6.5. The patient's ammonia level was elevated at 129. Albumin was 1.4. Troponin was 0.06. UA was positive for bilirubin otherwise negative. Urine drug screen was positive for phenylcyclidine. The COVID 19 testing was negative. Computed tomography scan of the brain showed no acute secondary process. There was mild diffuse atrophy with chronic small vessel change. The chest x-ray shows no acute abnormalities. No pleural effusion. NG tube was placed and that he was in a good location distal portion being in the distal esophagus. The patient was started on lactulose. For now, the patient is severely normal sed rate of 100 mL an hour normal saline and the patient is also on lactulose 30 g 4 times a day. Overnight, the patient became progressively more hypoxic. The patient dropped her pulse ox down to the 80s. She has been placed on on the percent nonrebreather facemask. Ultimately because of ongoing hypoxemia and altered mentation, the patient had to be intubated and placed on a mechanical ventilator. At this point in time, I will the patient is on a assist-control 28 with a tidal volume of 400 and FiO2 of 100% with a PEEP of 5. Most recent blood gas showed a pH of 7.41 with a pCO2 of 34 and pO2 of 101. The patient was not having any good IV access. Emergency physician was contacted and they subclavian triple-lumen catheter was inserted and this line insertion. Further by an Iatrogenic Pneumothorax on the Left. Based on That, a Fluoroscopy Vent Was Inserted and There Was Reexpansion of the Left Lung. There Is Some Intermittent Air Leak Still Present on Continuous Wall Suction. The Chest X-Ray Otherwise Showed Reexpansion of the Left Lung. ET Tube Is in a Good Location. No Significant Fluid Output from the the Flovent. Left hemidiaphragm is elevated. There is some atelectatic changes and left lung base. Some infilt ration in the right lower lobe also present. The patient overnight was covered with IV Zosyn. NG tube still in place. The patient is receiving lactulose. Bowel movement activities in order of very small BM that occurred yesterday. Urine output is 50 mL the entire night. The patient received a total of 4.5 L total fluids and currently she is on a maintenance of 100 mL an hour. She is also sedated with propofol at 40 mcg/kg per minute. The most recent blood work from this morning shows a hemoglobin of 13.2, coagulation profile is slightly improved compared to yesterday with a PT of 13.6 and INR of 1.3 with a PTT of 43 and there is an acute kidney injury with a BUN of 15 and a creatinine of 1.8 and the lactic acid level is at 5.0. LFTs remain abnormal with SGPT of 194, SGPT of 154 and troponins are still leaking at 0.08. Albumin is at 1.4 and adjusted calcium level is within normal limits. Review of Systems ROS unobtainable: due to endotracheal tube Past Medical History Past Medical History: Cancer, Memory Impairment, Osteoarthritis (OA), Seizure Disorder Additional Past Medical History / Comment(s): Annamaria Stoll syndrome Post resection of the abdomen and the partial gastrectomy, hypertension, history of anxiety, history of depression, history of seizure disorder History of Any Multi-Drug Resistant Organisms: None Reported Past Surgical History: Cholecystectomy, Hysterectomy Additional Past Surgical History / Comment(s): gastrectomy and head of pancreas removed bunionectomy to be bilateral bilateral tubal ligation Past Psychological History: Anxiety, Depression Smoking Status: Unknown if ever smoked Past Alcohol Use History: None Reported Past Drug Use History: Marijuana Medications and Allergies Home Medications Medication Instructions Recorded Confirmed Type buprenorphine HCL [Subutex] 8 mg SL BID 09/16/15 10/16/20 History levETIRAcetam [Keppra] 750 mg PO BID 09/16/15 10/16/20 History Cholestyramine (with Sugar) 4 gm PO QID 10/16/20 10/16/20 History [Cholestyramine Packet] Cyclobenzaprine [Flexeril] 10 mg PO TID PRN 10/16/20 10/16/20 History Triamterene-Hctz 37.5-25Mg 1 cap PO DAILY 10/16/20 10/16/20 History [Dyazide 37.5-25 Capsule] clonazePAM 1 mg PO TID 10/16/20 10/16/20 History Allergies Allergy/AdvReac Type Severity Reaction Status Date / Time NSAIDS (Non-Steroidal Allergy Unknown Verified 10/16/20 15:46 Anti-Inflamma steroids Allergy Unknown Uncoded 09/16/15 18:44 Physical Exam Vitals: Vital Signs Temp Pulse Resp BP Pulse Ox 10/17/20 07:00 112 H 31 H 75/50 95 10/17/20 06:00 134 H 31 H 144/29 96 10/17/20 05:00 135 H 36 H 89/68 97 10/17/20 04:00 98.6 F 126 H 34 H 89/68 94 L 10/17/20 03:00 117 H 28 H 90/38 91 L 10/17/20 02:00 114 H 21 96/60 91 L 10/17/20 01:00 116 H 18 153/137 10/17/20 00:00 97.7 F 120 H 62 H 102/79 90 L 10/16/20 23:01 120 H 46 H 102/75 87 L 10/16/20 23:00 120 H 42 H 99/67 87 L 10/16/20 22:00 114 H 22 92 L 10/16/20 21:00 112 H 24 94/75 91 L 10/16/20 20:02 98.2 F 106 H 26 H 113/70 84 L 02/09/21 19:59 97.9 F 101 H 12 107/69 97 10/16/20 19:00 101 H 19 104/71 93 L 10/16/20 18:57 101 H 12 104/71 96 10/16/20 18:00 107 H 29 H 113/74 94 L 10/16/20 17:50 108 H 14 113/74 94 L 10/16/20 17:00 101 H 19 91/58 92 L 10/16/20 16:01 96 12 106/65 98 10/16/20 16:00 100 16 107/75 97 10/16/20 15:02 108 H 21 106/73 97 10/16/20 15:01 110 H 12 106/73 97 10/16/20 14:58 10 L 10/16/20 14:24 97.9 F 98 10 L 93/58 98 Intake and Output 10/16/20 10/17/20 10/17/20 22:59 06:59 14:59 Intake Total 200 3200 100 Output Total 500 50 Balance -300 3150 100 Intake: IV 200 3200 100 0.9 200 3200 100 Output: Urine 500 50 Other: Voiding Method Indwelling Catheter # Bowel Movements 1 Weight 60.781 kg 63 kg The patient appeared unresponsive the patient currently on propofol and the patient has orogastric and NG tube is also in place. She is quite symptoms with the mechanical ventilator at this point in time. She looks quite cachectic and emaciated with temporal wasting.. Vital signs as documented. Head exam is unremarkable. No scleral icterus or corneal arcus noted. Neck is without jugular venous distension, thyromegaly, or carotid bruits. Carotid upstrokes are brisk bilaterally. Lungs are clear to auscultation and percussion. The patient has a vent inserted over the left anterior chest area. Cardiac exam reveals the PMI to be normally sized and situated. Rhythm is regular. First and second heart sounds normal. No murmurs, rubs or gallops. Abdominal exam reveals normal bowel sounds, no masses, no organomegaly and no aortic enlargement. The patient's abdomen overall is soft. There is no ascites. There is a large anterior abdominal wall scar related to a previous massive abdominal surgery. Extremities are nonedematous and both femoral and pedal pulses are markedly diminished in the upper extremity. Diminished pulses in lower extremity and extremities are cold. Femoral pulses are present. Pedal pulses are extremely weak and thready. .Examination of the skin revealed no evidence of significant rashes, suspicious appearing nevi or other concerning lesions. Neurologically the patient is currently sedated, unresponsive, not responsive to painful stimulation. Does not respond to verbal stimulation. No facial asymmetry. Pupils around 4-5 mm in size, sluggishly reactive to light and there is no nystagmus and there is no clonus at this point in time. No seizure activity has been noted. Results - Laboratory Findings CBC and BMP: 10/17/20 04:23 10/17/20 04:23 ABG ABG pH 7.41 (7.35-7.45) 10/17/20 04:40 ABG pCO2 35 mmHg (35-45) 10/17/20 04:40 ABG pO2 101 mmHg (83-108) 10/17/20 04:40 ABG O2 Saturation 94.5 % (94-97) 10/17/20 04:40 PT/INR, D-dimer PT 13.6 sec (9.0-12.0) H 10/17/20 04:23 INR 1.3 (<1.2) H 10/17/20 04:23 Abnormal lab findings: Abnormal Labs 10/16/20 10/16/20 10/16/20 14:26 14:44 14:50 WBC 13.0 H MCV Plt Count 55 L Neutrophils # 11.5 H Lymphocytes # (Manual) PT INR APTT ABG pH ABG pO2 ABG HCO3 ABG Total CO2 ABG O2 Saturation Sodium Chloride Creatinine Glucose POC Glucose (mg/dL) 64 L 140 H Plasma Lactic Acid Eduar Calcium Phosphorus Total Bilirubin AST ALT Alkaline Phosphatase Ammonia Troponin I Total Protein Albumin Urine Appearance Urine Bilirubin Urine Mucus U Tricyclic Antidepress 10/16/20 10/16/20 10/16/20 14:50 14:50 14:50 WBC MCV Plt Count Neutrophils # Lymphocytes # (Manual) PT 20.2 H INR 2.1 H APTT 43.1 H ABG pH ABG pO2 ABG HCO3 ABG Total CO2 ABG O2 Saturation Sodium 134 L Chloride Creatinine 1.47 H Glucose 175 H POC Glucose (mg/dL) Plasma Lactic Acid Eduar Calcium 6.5 L Phosphorus Total Bilirubin 2.1 H AST 65 H ALT 71 H Alkaline Phosphatase 215 H Ammonia Troponin I Total Protein 3.7 L Albumin 1.4 L Urine Appearance Cloudy H Urine Bilirubin 1+ H Urine Mucus Rare H U Tricyclic Antidepress Detected H 10/16/20 10/16/20 10/16/20 14:50 14:50 20:52 WBC MCV Plt Count Neutrophils # Lymphocytes # (Manual) PT INR APTT ABG pH 7.49 H ABG pO2 52 L* ABG HCO3 29 H ABG Total CO2 30 H ABG O2 Saturation 83.4 L Sodium Chloride Creatinine Glucose POC Glucose (mg/dL) Plasma Lactic Acid Eduar Calcium Phosphorus Total Bilirubin AST ALT Alkaline Phosphatase Ammonia 129 H Troponin I 0.069 H* Total Protein Albumin Urine Appearance Urine Bilirubin Urine Mucus U Tricyclic Antidepress 10/16/20 10/17/20 10/17/20 21:10 04:23 04:23 WBC MCV 100.6 H Plt Count Neutrophils # Lymphocytes # (Manual) 0.56 L PT INR APTT ABG pH ABG pO2 ABG HCO3 ABG Total CO2 ABG O2 Saturation Sodium Chloride 108 H Creatinine 1.83 H Glucose 62 L POC Glucose (mg/dL) Plasma Lactic Acid Eduar Calcium 7.2 L Phosphorus 4.7 H Total Bilirubin 3.1 H AST 62 H ALT 70 H Alkaline Phosphatase 194 H Ammonia Troponin I 0.069 H* Total Protein 3.8 L Albumin 1.4 L Urine Appearance Urine Bilirubin Urine Mucus U Tricyclic Antidepress 10/17/20 10/17/20 10/17/20 04:23 04:23 04:23 WBC MCV Plt Count Neutrophils # Lymphocytes # (Manual) PT 13.6 H INR 1.3 H APTT 43.9 H ABG pH ABG pO2 ABG HCO3 ABG Total CO2 ABG O2 Saturation Sodium Chloride Creatinine Glucose POC Glucose (mg/dL) Plasma Lactic Acid Eduar 5.0 H* Calcium Phosphorus Total Bilirubin AST ALT Alkaline Phosphatase Ammonia 154 H Troponin I 0.083 H* Total Protein Albumin Urine Appearance Urine Bilirubin Urine Mucus U Tricyclic Antidepress - Diagnostic Findings Chest x-ray: image reviewed Assessment and Plan Plan: 1 altered mental status most likely secondary to Hepatic encephalopathy/metabolic encephalopathy , the patient presented with signs of liver failure as the patient presents with coagulopathy, elevated ammonia level, thrombocytopenia, abnormal LFTs. CAT scan of the brain showing no acute abnormalities other than cerebral atrophy. 2 liver cirrhosis, suspected clinically and based on blood work 3 abnormal LFTs 4 coagulopathy, thrombocytopenia 5 Acute hypoxic respiratory failure , currently intubated on a mechanical ventilator. Chest x-ray was noted. Vent setting was noted. Blood gases was noted. 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 Iatrogenic left-sided pneumothorax and the patient has a thoravent in place with intermittent air leak. 12 hypotension, received a total of 4-1/2 L of IV fluid, may require pressors. 13 acute kidney injury with oligoria, secondary to above Plan Continue vent support. Blood gases was noted. No other ventilator changes for now. Daily chest x-rays Keep the Thoravent in place and keep it to suction Insert an arterial line Blood pressure monitoring. Continue maintenance fluid of normal saline today to 100 mL an hour. Monitor CVP. Start the patient on norepinephrine infusion for blood pressure control and monitor the urine output Check hepatitis profile including hepatitis B and C Follow-up on the lactic acid levels Cover the patient with IV Zosyn Lactulose for hepatic encephalopathy Patient on Xifaxan for 550 mg per NG twice a day The echocardiogram Resumed Zohreh Keep propofol for now Condition is critical and will continue to follow make further recommendations based on her progress Time with Patient: Greater than 30
[2020-10-17] MEDS: NOREPINEPHRINE 4 MG in SODIUM CHLORIDE 0.9% 250 ML IV SCH ×3 (07:56→21:45)
[2020-10-17] MEDS: SODIUM CHLORIDE 0.9% 1,000 ML IV SCH (08:07)
[2020-10-17] MEDS ORDERED: PANTOPRAZOLE 40 MG/10 ML VIAL IVP SCH (09:00)
[2020-10-17] MEDS: PIPERACILLIN-TAZOBACTAM 3.375 GM in SODIUM CHLORIDE 0.9% 100 ML IVPB SCH ×2 (09:07→20:31)
[2020-10-17] MEDS: levETIRAcetam IV 750 MG in SODIUM CHLORIDE 0.9% 100 ML IVPB SCH ×2 (09:07→20:30)
[2020-10-17] MEDS: PANTOPRAZOLE 40 MG/10 ML VIAL IV SCH (09:07)
[2020-10-17] MEDS: CHLORHEXIDINE GLUCONATE 15 ML CUP MUCOUS MEM SCH ×2 (09:08→20:55)
[2020-10-17] MEDS: RIFAXIMIN 550 MG TABLET PO SCH ×2 (09:08→20:56)
[2020-10-17] MEDS: LACTULOSE 20 GM/30 ML CUP PO SCH ×4 (09:08→23:13)
[2020-10-17 09:18] LABS: Appearance,Urine Clear (Clear); Bilirubin,Urine Negative (Negative); Blood,Urine Trace (Negative); Color,Urine Yellow; Glucose,Urine (UA) Negative (Negative); Hyaline Casts,Urine 4 /lpf (0-2); Ketones,Urine Negative (Negative); Leukocyte Esterase,Urine Negative (Negative); Mucus,Urine Rare /hpf; Nitrite,Urine Negative (Negative); Protein,Urine Negative (Negative); RBC,Urine 2 /hpf (0-5); Specific Gravity,Urine 1.009 (1.001-1.035); Urobilinogen,Urine <2.0 mg/dL (<2.0); WBC,Urine 3 /hpf (0-5)
--- NOTE | 2020-10-17 10:30 | ECHOF ---
Referral Reason:EF MEASUREMENTS -------- HEIGHT: 0.0 cm WEIGHT: 0.0 kg BP: IVSd: 0.7 cm (0.6 - 1.1) LVIDd: 3.1 cm (3.9 - 5.3) LVPWd: 1.0 cm (0.6 - 1.1) IVSs: 1.3 cm LVIDs: 1.9 cm LVPWs: 1.2 cm MV E Hollis: 0.37 m/s MV DecT: 157 ms MV A Hollis: 0.59 m/s MV E/A Ratio: 0.63 RAP: 5.00 mmHg RVSP: 18.96 mmHg FINDINGS -------- Sinus rhythm. This was a technically difficult study with suboptimal views. Pt. on a vent. The left ventricular size is normal. Left ventricular wall thickness is normal. Overall left vent ricular systolic function is low-normal with, an EF between 50 - 55 %. The RV was not well visualized. The left atrium was not well visualized. The right atrium was not well visualized. Lumason used The aortic valve was not well visualized. The mitral valve is normal. There is trace to mild mitral regurgitation. The tricuspid valve was not well visualized. Mild tricuspid regurgitation present. Right ventricu lar systolic pressure is normal at < 35 mmHg. The right ventricular systolic pressure, as measured by Doppler, is 18.96mmHg. The pulmonic valve was not well visualized. There is no pericardial effusion. CONCLUSIONS -------- 1. This was a technically difficult study with suboptimal views. 2. Left ventricular wall thickness is normal. 3. Overall left ventricular systolic function is low-normal with, an EF between 50 - 55 %. 4. The aortic valve was not well visualized. 5. There is trace to mild mitral regurgitation. 6. Mild tricuspid regurgitation present. 7. There is no pericardial effusion. ROLL HAULER: Yari Sutherland RDCS
--- NOTE | 2020-10-17 10:55 | US ---
EXAMINATION TYPE: US liver DATE OF EXAM: 10/17/2020 COMPARISON: NONE CLINICAL HISTORY: elevated liver enzymes, hx pancreatic cancer. elevated liver enzymes, cholecystecto my, partial pancreas removal EXAM MEASUREMENTS: Liver Length: 17.6 cm Gallbladder Wall: Surgically absent Right Kidney: 9.7 x 4.3 x 4.3 cm Extreme technical limitations, intubated ICU patient Pancreas: Obscured by bowel gas Liver: limited evaluation, heterogenous, attenuating, possible irregular hypoechoic area near cameron hepatis Gallbladder: Surgically absent Evidence for sonographic Villasenor's sign: no CBD: unable to visualize Right Kidney: no evidence of hydronephrosis IMPRESSION: 1. Markedly abnormal appearance of the liver which is heterogeneous and hyperattenuating most likely on the basis of fatty infiltration or diffuse hepatocellular disease. However, there is an irregular hypoechoic area near the cameron hepatis for which CT scan or MRI recommended to exclude mass.
[2020-10-17 11:39] LABS: Glucose,Whole Blood 43 mg/dL (75-99)
[2020-10-17 11:41] LABS: Glucose,Whole Blood 64 mg/dL (75-99)
[2020-10-17] MEDS: DEXTROSE 5%-0.9% NACL 1,000 ML IV SCH ×2 (11:55→22:33)
[2020-10-17 11:58] LABS: Glucose,Whole Blood 120 mg/dL (75-99)
[2020-10-17 12:00] LABS: ABG Base Excess -6.8 mmol/L; ABG HCO3 19 mmol/L (21-25); ABG PCO2 33 mmHg (35-45); ABG PH 7.37 (7.35-7.45); ABG PO2 187 mmHg (83-108); ABG TCO2 20 mmol/L (19-24)
[2020-10-17 12:01] LABS: ABG Oxygen Saturation 96.4 % (94-97)
[2020-10-17 15:10] LABS: Hepatitis A Antibody IgM Non-Reactive (Non-Reactive); Hepatitis B Core IgM Non-Reactive (Non-Reactive); Hepatitis B Surface Antigen Non-Reactive (Non-Reactive); Hepatitis C IgG Antibody Non-Reactive (Non-Reactive)
[2020-10-17 16:59] LABS: Glucose,Whole Blood 120 mg/dL (75-99)
--- NOTE | 2020-10-17 17:18 | P.PCN ---
Date of Procedure: 10/17/20 Preoperative Diagnosis: Shock, hemodynamic monitoring Postoperative Diagnosis: Septic shock Procedure(s) Performed: Insertion of an arterial line Anesthesia: local Surgeon: Tim Lomas Pathology: none sent Condition: critical Disposition: ICU Operative Findings: Indication: Hemodynamic monitoring. A time-out was completed verifying correct patient, procedure, site, positioning, and implant(s) or special equipment if applicable. Allens test was performed to ensure adequate perfusion. The patients right groin was prepped and draped in sterile fashion. 1% Lidocaine was used to anesthetize the area. An 18G Arrow arterial line was introduced into the femoral artery. The catheter was threaded over the guide wire and the needle was removed with appropriate pulsatile blood return. Blood loss was minimal. The catheter was then sutured in place to the skin and a sterile dressing appl ied. Perfusion to the extremity distal to the point of catheter insertion was checked and found to be adequate. The patient tolerated the procedure well and there were no complications.
[2020-10-17] MEDS ORDERED: SODIUM CHLORIDE 0.9% 1,000 ML IV ONE (20:46)
--- NOTE | 2020-10-17 20:55 | P.HPIM ---
History of Present Illness H&P Date: 10/17/20 Chief Complaint: Unresponsive History of presenting complaint: This is a 60-year-old patient came to the ER as she was unresponsive. 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 As per the EMS and ER physician: The previous night the patient was fine and this morning the woke up she was unresponsive for at least 6 hours and then he decided to call the ambulance up to 6 hours. Patient not able to walk to respond but able to respond to touch. And sometimes she would groan. Ammonia level in the ER was 129. Computed tomography scan of the brain was unremarkable. NG tube was placed. Started on lactulose. Patient then became hypoxic overnight. She was put on 100% nonrebreather facemask. And finally had to be intubated. Review of systems: Cannot be done patient is intubated Past medical history to include: Memory impairment, osteoporosis, seizure disorder, Annamaria-Stoll syndrome status post resection of partial gastrectomy and head of the pancreas, history of anxiety depression, Social history: Lives with her Family history: Patient cannot tell intubated. Physical examination: VITAL SIGNS: 97.7, 104, 29, 79/53, 100% on the ventilator GENERAL: BMI 23.8, diffuse wasting of muscles including the forehead. EYES: Pupils equal. Conjunctiva normal. HEENT: External appearance of nose and ears normal, oral cavity dry. Endotracheal tube. NECK: JVD unable to assess; masses not palpable. HEART: First and second heart sounds are normal; no edema. LUNGS: Respiratory rate normal; decreased breath sounds. ABDOMEN: Soft, nontender, liver spleen not palpable, no masses palpable. PSYCH: Patient sedatedl. NEUROLOGICAL: [Cranial nerves grossly intact; no facial asymmetry, sedated LYM PHATICS: No lymph nodes palpable in the axilla and neck INVESTIGATIONS, reviewed in the clinical context: White count 7 hemoglobin 13.2 platelets 217 potassium 3.9 creatinine 1.83 lactic acid 5 AST 62 ALT 70, albumin 1.4 Acute hepatitis screen for A, B, and C nonreactive UA showing trace blood, Liver ultrasound-markedly abnormal appearance of the liver which is heterogenous and hyperattenuating most likely fatty infiltration/diffuse or parasellar disease. 2-D echocardiogram-a 50-45% Admission testing: White count 13 hemoglobin 12.1 platelets 55 pro time 20.2 potassium 4.4 creatinine 1.47 ammonia 129 AST 65 ALT 71 albumin 1.4 Urine drug screen positive for-try cyclic antidepressants Coronavirus [PCR]-not detected Chest x-ray film-patchy right basilar atelectasis. Some left basilar infiltr ate. Computed tomography scan brain-some chronic changes EKG tracing personally reviewed by me-normal sinus rhythm, nonspecific ST/T-wave changes Assessment and plan: -This is a patient who was found to be unresponsive at home and was so for at least 6 hours before called the EMS. Ammonia level was found to be high. 129. NG tube was placed on lactulose. -Acute hypoxic respiratory failure requiring ventilator support -Primary osteoarthritis -History of Annamaria-Stoll syndrome status post resection of the head of the pancreas and partial gastrectomy -Severe protein calorie malnutrition-patient is diffuse wasting of muscles loss of subcutaneous fat low albumin -Significant thrombocytopenia cause unknown -Prolonged pro time. Could be from vitamin K deficiency from liver disease and poor oral intake -Acute kidney injury, worsening could be ATN. Given patient's low muscle mass this is a rather significant elevation in creatinine. Renal ultrasound. Note patient was on Dyazide at home. Patient be discontinued. -Epilepsy disorder continue with Keppra -Hypotensive shock on our epinephrine -Full code Consultation to unit nurse, nephrology, gastroenterology. Patient otherwise still IV Zosyn. Prognosis guarded. Patient also placed on xifaxin Past Medical History Past Medical History: Cancer, Memory Impairment, Osteoarthritis (OA), Seizure Disorder Additional Past Medical History / Comment(s): Annamaria Stoll syndrome Post resection of the abdomen and the partial gastrectomy, hypertension, history of anxiety, history of depression, history of seizure disorder History of Any Multi-Drug Resistant Organisms: None Reported Past Surgical History: Cholecystectomy, Hysterectomy Additional Past Surgical History / Comment(s): gastrectomy and head of pancreas removed bunionectomy to be bilateral bilateral tubal ligation Past Psychological History: Anxiety, Depression Smoking Status: Unknown if ever smoked Past Alcohol Use History: None Reported Past Drug Use History: Marijuana Medications and Allergies Home Medications Medication Instructions Recorded Confirmed Type buprenorphine HCL [Subutex] 8 mg SL BID 09/16/15 10/16/20 History levETIRAcetam [Keppra] 750 mg PO BID 09/16/15 10/16/20 History Cholestyramine (with Sugar) 4 gm PO QID 10/16/20 10/16/20 History [Cholestyramine Packet] Cyclobenzaprine [Flexeril] 10 mg PO TID PRN 10/16/20 10/16/20 History Triamterene-Hctz 37.5-25Mg 1 cap PO DAILY 10/16/20 10/16/20 History [Dyazide 37.5-25 Capsule] clonazePAM 1 mg PO TID 10/16/20 10/16/20 History Allergies Allergy/AdvReac Type Severity Reaction Status Date / Time NSAIDS (Non-Steroidal Allergy Unknown Verified 10/16/20 15:46 Anti-Inflamma steroids Allergy Unknown Uncoded 09/16/15 18:44 Physical Exam Vitals: Vital Signs Temp Pulse Resp BP Pulse Ox 10/17/20 10:00 112 H 28 H 100 10/17/20 09:45 106 H 28 H 10/17/20 09:30 105 H 28 H 10/17/20 09:15 105 H 28 H 10/17/20 09:00 104 H 28 H 88/62 100 10/17/20 08:45 102 H 20 10/17/20 08:30 104 H 28 H 88/69 10/17/20 08:15 97 29 H 91/69 10/17/20 08:00 97.7 F 104 H 29 H 79/53 100 10/17/20 07:45 103 H 29 H 79/53 10/17/20 07:30 107 H 30 H 77/56 10/17/20 07:15 110 H 30 H 77/56 10/17/20 07:00 112 H 31 H 75/50 95 10/17/20 06:00 134 H 31 H 144/29 96 10/17/20 05:00 135 H 36 H 89/68 97 10/17/20 04:00 98.6 F 126 H 34 H 89/68 94 L 10/17/20 03:00 117 H 28 H 90/38 91 L 10/17/20 02:00 114 H 21 96/60 91 L 10/17/20 01:00 116 H 18 153/137 10/17/20 00:00 97.7 F 120 H 62 H 102/79 90 L 10/16/20 23:01 120 H 46 H 102/75 87 L 10/16/20 23:00 120 H 42 H 99/67 87 L 10/16/20 22:00 114 H 22 92 L 10/16/20 21:00 112 H 24 94/75 91 L 10/16/20 20:02 98.2 F 106 H 26 H 113/70 84 L 10/16/20 19:59 97.9 F 101 H 12 107/69 97 10/16/20 19:00 101 H 19 104/71 93 L 10/16/20 18:57 101 H 12 104/71 96 10/16/20 18:00 107 H 29 H 113/74 94 L 10/16/20 17:50 108 H 14 113/74 94 L 10/16/20 17:00 101 H 19 91/58 92 L 10/16/20 16:01 96 12 106/65 98 10/16/20 16:00 100 16 107/75 97 10/16/20 15:02 108 H 21 106/73 97 10/16/20 15:01 110 H 12 106/73 97 10/16/20 14:58 10 L 10/16/20 14:24 97.9 F 98 10 L 93/58 98 Intake and Output 10/16/20 10/17/20 10/17/20 22:59 06:59 14:59 Intake Total 200 3200 663.474 Output Total 500 50 350 Balance -300 3150 313.474 Intake: IV 200 3200 600 0.9 200 3200 100 Piperacillin-Tazobactam 3 100 .375 gm In Sodium Chloride 0.9% 100 ml @ 25 mls/hr IVPB Q12HR MARIA A Rx #:[id number] Sodium Chloride 0.9% 1, 300 000 ml @ 100 mls/hr IV . Q10H MARIA A Rx#:[id number] levETIRAcetam IV 750 mg 100 In Sodium Chloride 0.9% 100 ml @ 400 mls/hr IVPB Q12HR MARIA A Rx#:[id number] Intake, IV Titration 3.474 Amount Norepinephrine 4 mg In 3.474 Sodium Chloride 0.9% 250 ml @ 0.05 MCG/KG/MIN 11. 579 mls/hr IV .[id number] MARIA A Rx#:[id number] Oral 60 Output: Chest Tube Drainage 90 Thora-Vent Left Upper 90 Anterior Chest Urine 500 50 260 Other: Voiding Method Indwelling Catheter # Bowel Movements 1 1 Weight 60.781 kg 63 kg ABP, PAP, CO, CI - Last 8 Hours Arterial Blood Pressure 96/56 Arterial Blood Pressure 100/57 Arterial Blood Pressure 86/46 Arterial Blood Pressure 92/56 Arterial Blood Pressure 102/61 Arterial Blood Pressure 122/46 Arterial Blood Pressure 105/63 Results CBC & Chem 7: 10/17/20 04:23 10/17/20 04:23 Labs: Abnormal Lab Results - Last 24 Hours (Table) 10/16/20 10/16/20 10/16/20 Range/Units 14:26 14:44 14:50 WBC 13.0 H (3.8-10.6) k/uL MCV (80.0-100.0) fL Plt Count 55 L (150-450) k/uL Neutrophils # 11.5 H (1.3-7.7) k/uL Lymphocytes # (Manual) (1.0-4.8) k/uL PT (9.0-12.0) sec INR (<1.2) APTT (22.0-30.0) sec ABG pH (7.35-7.45) ABG pO2 (83-108) mmHg ABG HCO3 (21-25) mmol/L ABG Total CO2 (19-24) mmol/L ABG O2 Saturation (94-97) % Sodium (137-145) mmol/L Chloride (98-107) mmol/L Creatinine (0.52-1.04) mg/dL Glucose (74-99) mg/dL POC Glucose (mg/dL) 64 L 140 H (75-99) mg/dL Plasma Lactic Acid Eduar (0.7-2.0) mmol/L Calcium (8.4-10.2) mg/dL Phosphorus (2.5-4.5) mg/dL Total Bilirubin (0.2-1.3) mg/dL AST (14-36) U/L ALT (4-34) U/L Alkaline Phosphatase (38-126) U/L Ammonia (<30) umol/L Troponin I (0.000-0.034) ng/mL Total Protein (6.3-8.2) g/dL Albumin (3.5-5.0) g/dL Urine Appearance (Clear) Urine Blood (Negative) Urine Bilirubin (Negative) Hyaline Casts (0-2) /lpf Urine Mucus (None) /hpf U Tricyclic Antidepress (NotDetected) 10/16/20 10/16/20 10/16/20 Range/Units 14:50 14:50 14:50 WBC (3.8-10.6) k/uL MCV (80.0-100.0) fL Plt Count (150-450) k/uL Neutrophils # (1.3-7.7) k/uL Lymphocytes # (Manual) (1.0-4.8) k/uL PT 20.2 H (9.0-12.0) sec INR 2.1 H (<1.2) APTT 43.1 H (22.0-30.0) sec ABG pH (7.35-7.45) ABG pO2 (83-108) mmHg ABG HCO3 (21-25) mmol/L ABG Total CO2 (19-24) mmol/L ABG O2 Saturation (94-97) % Sodium 134 L (137-145) mmol/L Chloride (98-107) mmol/L Creatinine 1.47 H (0.52-1.04) mg/dL Glucose 175 H (74-99) mg/dL POC Glucose (mg/dL) (75-99) mg/dL Plasma Lactic Acid Eduar (0.7-2.0) mmol/L Calcium 6.5 L (8.4-10.2) mg/dL Phosphorus (2.5-4.5) mg/dL Total Bilirubin 2.1 H (0.2-1.3) mg/dL AST 65 H (14-36) U/L ALT 71 H (4-34) U/L Alkaline Phosphatase 215 H (38-126) U/L Ammonia (<30) umol/L Troponin I (0.000-0.034) ng/mL Total Protein 3.7 L (6.3-8.2) g/dL Albumin 1.4 L (3.5-5.0) g/dL Urine Appearance Cloudy H (Clear) Urine Blood (Negative) Urine Bilirubin 1+ H (Negative) Hyaline Casts (0-2) /lpf Urine Mucus Rare H (None) /hpf U Tricyclic Antidepress Detected H (NotDetected) 10/16/20 10/16/20 10/16/20 Range/Units 14:50 14:50 20:52 WBC (3.8-10.6) k/uL MCV (80.0-100.0) fL Plt Count (150-450) k/uL Neutrophils # (1.3-7.7) k/uL Lymphocytes # (Manual) (1.0-4.8) k/uL PT (9.0-12.0) sec INR (<1.2) APTT (22.0-30.0) sec ABG pH 7.49 H (7.35-7.45) ABG pO2 52 L* (83-108) mmHg ABG HCO3 29 H (21-25) mmol/L ABG Total CO2 30 H (19-24) mmol/L ABG O2 Saturation 83.4 L (94-97) % Sodium (137-145) mmol/L Chloride (98-107) mmol/L Creatinine (0.52-1.04) mg/dL Glucose (74-99) mg/dL POC Glucose (mg/dL) (75-99) mg/dL Plasma Lactic Acid Eduar (0.7-2.0) mmol/L Calcium (8.4-10.2) mg/dL Phosphorus (2.5-4.5) mg/dL Total Bilirubin (0.2-1.3) mg/dL AST (14-36) U/L ALT (4-34) U/L Alkaline Phosphatase (38-126) U/L Ammonia 129 H (<30) umol/L Troponin I 0.069 H* (0.000-0.034) ng/mL Total Protein (6.3-8.2) g/dL Albumin (3.5-5.0) g/dL Urine Appearance (Clear) Urine Blood (Negative) Urine Bilirubin (Negative) Hyaline Casts (0-2) /lpf Urine Mucus (None) /hpf U Tricyclic Antidepress (NotDetected) 10/16/20 10/17/20 10/17/20 Range/Units 21:10 04:23 04:23 WBC (3.8-10.6) k/uL MCV 100.6 H (80.0-100.0) fL Plt Count (150-450) k/uL Neutrophils # (1.3-7.7) k/uL Lymphocytes # (Manual) 0.56 L (1.0-4.8) k/uL PT (9.0-12.0) sec INR (<1.2) APTT (22.0-30.0) sec ABG pH (7.35-7.45) ABG pO2 (83-108) mmHg ABG HCO3 (21-25) mmol/L ABG Total CO2 (19-24) mmol/L ABG O2 Saturation (94-97) % Sodium (137-145) mmol/L Chloride 108 H (98-107) mmol/L Creatinine 1.83 H (0.52-1.04) mg/dL Glucose 62 L (74-99) mg/dL POC Glucose (mg/dL) (75-99) mg/dL Plasma Lactic Acid Eduar (0.7-2.0) mmol/L Calcium 7.2 L (8.4-10.2) mg/dL Phosphorus 4.7 H (2.5-4.5) mg/dL Total Bilirubin 3.1 H (0.2-1.3) mg/dL AST 62 H (14-36) U/L ALT 70 H (4-34) U/L Alkaline Phosphatase 194 H (38-126) U/L Ammonia (<30) umol/L Troponin I 0.069 H* (0.000-0.034) ng/mL Total Protein 3.8 L (6.3-8.2) g/dL Albumin 1.4 L (3.5-5.0) g/dL Urine Appearance (Clear) Urine Blood (Negative) Urine Bilirubin (Negative) Hyaline Casts (0-2) /lpf Urine Mucus (None) /hpf U Tricyclic Antidepress (NotDetected) 10/17/20 10/17/20 10/17/20 Range/Units 04:23 04:23 04:23 WBC (3.8-10.6) k/uL MCV (80.0-100.0) fL Plt Count (150-450) k/uL Neutrophils # (1.3-7.7) k/uL Lymphocytes # (Manual) (1.0-4.8) k/uL PT 13.6 H (9.0-12.0) sec INR 1.3 H (<1.2) APTT 43.9 H (22.0-30.0) sec ABG pH (7.35-7.45) ABG pO2 (83-108) mmHg ABG HCO3 (21-25) mmol/L ABG Total CO2 (19-24) mmol/L ABG O2 Saturation (94-97) % Sodium (137-145) mmol/L Chloride (98-107) mmol/L Creatinine (0.52-1.04) mg/dL Glucose (74-99) mg/dL POC Glucose (mg/dL) (75-99) mg/dL Plasma Lactic Acid Eduar 5.0 H* (0.7-2.0) mmol/L Calcium (8.4-10.2) mg/dL Phosphorus (2.5-4.5) mg/dL Total Bilirubin (0.2-1.3) mg/dL AST (14-36) U/L ALT (4-34) U/L Alkaline Phosphatase (38-126) U/L Ammonia 154 H (<30) umol/L Troponin I 0.083 H* (0.000-0.034) ng/mL Total Protein (6.3-8.2) g/dL Albumin (3.5-5.0) g/dL Urine Appearance (Clear) Urine Blood (Negative) Urine Bilirubin (Negative) Hyaline Casts (0-2) /lpf Urine Mucus (None) /hpf U Tricyclic Antidepress (NotDetected) 10/17/20 10/17/20 Range/Units 09:05 09:40 WBC (3.8-10.6) k/uL MCV (80.0-100.0) fL Plt Count (150-450) k/uL Neutrophils # (1.3-7.7) k/uL Lymphocytes # (Manual) (1.0-4.8) k/uL PT (9.0-12.0) sec INR (<1.2) APTT (22.0-30.0) sec ABG pH (7.35-7.45) ABG pO2 (83-108) mmHg ABG HCO3 (21-25) mmol/L ABG Total CO2 (19-24) mmol/L ABG O2 Saturation (94-97) % Sodium (137-145) mmol/L Chloride (98-107) mmol/L Creatinine (0.52-1.04) mg/dL Glucose (74-99) mg/dL POC Glucose (mg/dL) (75-99) mg/dL Plasma Lactic Acid Eduar 6.2 H* (0.7-2.0) mmol/L Calcium (8.4-10.2) mg/dL Phosphorus (2.5-4.5) mg/dL Total Bilirubin (0.2-1.3) mg/dL AST (14-36) U/L ALT (4-34) U/L Alkaline Phosphatase (38-126) U/L Ammonia (<30) umol/L Troponin I (0.000-0.034) ng/mL Total Protein (6.3-8.2) g/dL Albumin (3.5-5.0) g/dL Urine Appearance (Clear) Urine Blood Trace H (Negative) Urine Bilirubin (Negative) Hyaline Casts 4 H (0-2) /lpf Urine Mucus Rare H (None) /hpf U Tricyclic Antidepress (NotDetected)
[2020-10-18 00:10] LABS: Glucose,Whole Blood 101 mg/dL (75-99)
[2020-10-18] MEDS ORDERED: SODIUM CHLORIDE 0.9% 1,000 ML IV ONE ×2 (00:45→08:12)
[2020-10-18] MEDS: NOREPINEPHRINE 4 MG in SODIUM CHLORIDE 0.9% 250 ML IV SCH (03:36)
[2020-10-18 04:49] LABS: ABG Base Excess -7.1 mmol/L; ABG HCO3 18 mmol/L (21-25); ABG Oxygen Saturation 94.7 % (94-97); ABG PCO2 29 mmHg (35-45); ABG PO2 97 mmHg (83-108); ABG TCO2 19 mmol/L (19-24); Allen Test Performed? Yes
[2020-10-18 04:58] LABS: Albumin 1.2 g/dL (3.5-5.0); Calcium 6.5 mg/dL (8.4-10.2); Magnesium 1.7 mg/dL (1.6-2.3); Potassium 3.3 mmol/L (3.5-5.1); Total Bilirubin 3.6 mg/dL (0.2-1.3); Total Protein 3.3 g/dL (6.3-8.2)
[2020-10-18 05:02] LABS: HCT 34.5 % (34.0-46.0); HGB 11.3 gm/dL (11.4-16.0); Hypochromasia Moderate; MCH 33.7 pg (25.0-35.0); MCHC 32.8 g/dL (31.0-37.0); MCV 102.8 fL (80.0-100.0); Macrocytosis Slight; Mean Platelet Volume 10.3; Platelet Count 153 k/uL (150-450); RBC 3.36 m/uL (3.80-5.40); RDW 12.6 % (11.5-15.5); WBC 23.5 k/uL (3.8-10.6)
[2020-10-18 05:19] LABS: Prothrombin Time 19.8 sec (9.0-12.0)
[2020-10-18 05:50] LABS: Band Neutrophils % 27 %; Lymphocytes # (M) 0.71 k/uL (1.0-4.8); Metamyelocytes # (M) 0.47 k/uL (0); Metamyelocytes % 2 %; Monocytes # (M) 0.24 k/uL (0-1.0); Neutrophils % (M) 67 %; Nucleated Red Blood Cells 0 /100 WBC (0-0); Total Cells Counted 200
[2020-10-18 05:51] LABS: Anisocytosis (M) Present; Hypochromasia (M) Present; Toxic Granulation Present; Toxic Vacuolation Present
[2020-10-18] MEDS ORDERED: Magnesium Replacement Protocol 1 EACH MISC MISCELLANE PRN (05:56)
[2020-10-18] MEDS: MAGNESIUM SULFATE-D5W PMX 1 GM in DEXTROSE/WATER 1 100ML.BAG IVPB SCH ×2 (06:12→09:03)
[2020-10-18] MEDS: POTASSIUM BICARBONATE/CIT AC 20 MEQ TABLET.EFF NG-TUBE SCH ×2 (06:12→06:46)
[2020-10-18 06:42] LABS: Glucose,Whole Blood 164 mg/dL (75-99)
--- NOTE | 2020-10-18 07:52 | P.PN ---
Subjective Progress Note Date: 10/18/20 This is a 60-year-old female presents emergency Department because she has been unresponsive. 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 History is from EMS and the ED physcian who attended on the patient. They stated that last night the patient was fine and this morning when woke up she has been unresponsive for the last 6 hours and he decided to call the ambulance after 6 hours. According to the the patient is not been able to verbally respond were but only will respond to some tactile stimulation and she would only responded with a groan hormone. There's been no history of any recent fevers. No reported seizure activity. The blood work showed a normal white cell count of 13.0. Hemoglobin was at 12.1. Platelet count was low at 55. The patient is coagulopathic with a PT of 20, INR of 2.1 and a PTT of 43.1. Her BUN was 40 with a creatinine of 1.47. Sodium is at 134. LFTs were abnormal with an SGOT of 65, SGPT of 71 with an alkaline phosphatase of 215. Bilirubin was 2.1 with a calcium level of 6.5. The patient's ammonia level was elevated at 129. Albumin was 1.4. Troponin was 0.06. UA was positive for bilirubin otherwise negative. Urine drug screen was positive for phenylcyclidine. The COVID 19 testing was negative. Computed tomography scan of the brain showed no acute secondary process. There was mild diffuse atrophy with chronic small vessel change. The chest x-ray shows no acute abnormalities. No pleural effusion. NG tube was placed and that he was in a good location d istal portion being in the distal esophagus. The patient was started on lactulose. For now, the patient is severely normal sed rate of 100 mL an hour normal saline and the patient is also on lactulose 30 g 4 times a day. Overnight, the patient became progressively more hypoxic. The patient dropped her pulse ox down to the 80s. She has been placed on on the percent nonrebreather facemask. Ultimately because of ongoing hypoxemia and altered mentation, the patient had to be intubated and placed on a mechanical ventilator. At this point in time, I will the patient is on a assist-control 28 with a tidal volume of 400 and FiO2 of 100% with a PEEP of 5. Most recent blood gas showed a pH of 7.41 with a pCO2 of 34 and pO2 of 101. The patient was not having any good IV access. Emergency physician was contacted and they subclavian triple-lumen catheter was inserted and this line insertion. Further by an Iatrogenic Pneumothorax on the Left. Based on That, a Fluoroscopy Vent Was Inserted and There Was Reexpansion of the Left Lung. There Is Some Intermittent Air Leak Still Present on Continuous Wall Suction. The Chest X-Ray Otherwise Showed Reexpansion of the Left Lung. ET Tube Is in a Good Location. No Significant Fluid Output from the the Flovent. Left hemidiaphragm is eleva verónica. There is some atelectatic changes and left lung base. Some infiltration in the right lower lobe also present. The patient overnight was covered with IV Zosyn. NG tube still in place. The patient is receiving lactulose. Bowel movement activities in order of very small BM that occurred yesterday. Urine output is 50 mL the entire night. The patient received a total of 4.5 L total fluids and currently she is on a maintenance of 100 mL an hour. She is also sedated with propofol at 40 mcg/kg per minute. The most recent blood work from this morning shows a hemoglobin of 13.2, coagulation profile is slightly improved compared to yesterday with a PT of 13.6 and INR of 1.3 with a PTT of 43 and there is an acute kidney injury with a BUN of 15 and a creatinine of 1.8 and the lactic acid level is at 5.0. LFTs remain abnormal with SGPT of 194, SGPT of 154 and troponins are still leaking at 0.08. Albumin is at 1.4 and adjusted calcium level is within normal limits. 10/18/2020 the patient is intubated on a mechanical ventilator, currently on assist control mode at the rate of 28 with a tidal volume of 400 FiO2 of 40% with a PEEP of 5. The patient has no significant orotracheal secretions. There is a fluoroscopy vent in the left chest and today's chest x-ray shows no evidence of any pneumothorax. ET tube is about 1 cm above the alvin. There is ongoing air leak thoavent. Total amount of output from output has been in the order of 300 mL since inserted. She remains sedated and the patient was on propofol for sedation and a sedation was stopped 5:00 this morning to reevaluate her mental status. She is still receiving lactulose and had a ammonia level is on the decline. Hemodynamically, the patient remains on pressors. Overnight she received an additional 2 L of IV fluids. Her CVP is running around 10 and the patient remains on norepinephrine infusion at 0.06 mcg/kg per minute. She is in a positive fluid balance. Her white cell count is up to 23.5. Hemoglobin is 11.3. INR is at 2.0 with a PT of 19.8. The patient's renal function is stable with a creatinine of 1.3. Lactic acidosis and the decline as the lactic acid level peaked at 8.7 and currently is down to 6.2 ultrasound the liver shows marked abnormalities in the liver with heterogeneous appearance most likely on the basis of fatty infiltration or diffuse hepatocellular disease. Irregular density was also seen near the cameron hepatis for which a CAT scan of the abdomen she is currently on D5 0.5 today to 100 mL an hour. She is on IV Keppra, IV Zosyn, lactulose 4 times a day, and all of the cultures are negative for now. Objective - Vital Signs Vital signs: Vital Signs Temp 98.3 F 10/18/20 04:00 Pulse 78 10/18/20 07:00 Resp 28 H 10/18/20 07:00 BP 90/62 10/18/20 07:00 Pulse Ox 98 10/18/20 07:00 Intake & Output 10/17/20 10/18/20 10/18/20 18:59 06:59 18:59 Intake Total 3834.714 1329.220 100 Output Total 695 510 30 Balance 3188.970 3171.220 70 Weight 68.3 kg Intake: IV 1400 300 0.9 100 Piperacillin-Tazobactam 3 100 100 .375 gm In Sodium Chloride 0.9% 100 ml @ 25 mls/hr IVPB Q12HR [facility] Rx #:[id number] Sodium Chloride 0.9% 1, 1100 100 000 ml @ 100 mls/hr IV . Q10H [facility] Rx#:[id number] levETIRAcetam IV 750 mg 100 100 In Sodium Chloride 0.9% 100 ml @ 400 mls/hr IVPB Q12HR [facility] Rx#:[id number] Intake, IV Titration 749.596 0595.220 100 Amount Dextrose 5%-0.9% NaCl 1, 1100 100 000 ml @ 100 mls/hr IV . Q10H [facility] Rx#:[id number] Magnesium Sulfate-D5w Pmx 100 1 gm In Dextrose/Water 1 100ml.bag @ 100 mls/hr IVPB Q1H [facility] Rx#: [id number] Norepinephrine 4 mg In 254.000 514.910 Sodium Chloride 0.9% 250 ml @ 0.05 MCG/KG/MIN 11. 579 mls/hr IV .[id number] [facility] Rx#:[id number] Sodium Chloride 0.9% 1, 1000 000 ml @ 999 mls/hr IV . Q1H1M [facility] Rx#:[id number] Sodium Chloride 0.9% 1, 1000 000 ml @ 999 mls/hr IV . Q1H1M ONE Rx#:[id number] propofoL 500 mg In Empty 69.310 Bag 1 bag @ Titrate IV . Q0M [facility] Rx#:[id number] Oral 60 Other 90 Output: Chest Tube Drainage 220 220 Thora-Vent Left Upper 220 220 Anterior Chest Urine 475 290 30 Other: Voiding Method Indwelling Catheter Indwelling Catheter # Bowel Movements 1 ABP, PAP, CO, CI - Last Documented Arterial Blood Pressure 109/56 - Exam The patient appeared unresponsive the patient currently on propofol and the patient has orogastric and NG tube is also in place. She is quite symptoms with the mechanical ventilator at this point in time. She looks quite cachectic and emaciated with temporal wasting.. Vital signs as documented. Head exam is unremarkable. No scleral icterus or corneal arcus noted. Neck is without jugular venous distension, thyromegaly, or carotid bruits. Carotid upstrokes are brisk bilaterally. Lungs are clear to auscultation and percussion. The patient has a vent inserted over the left anterior chest area. Cardiac exam reveals the PMI to be normally sized and situated. Rhythm is regular. First and second heart sounds normal. No murmurs, rubs or gallops. Abdominal exam reveals normal bowel sounds, no masses, no organomegaly and no aortic enlargement. The patient's abdomen overall is soft. There is no ascites. There is a large anterior abdomi nal wall scar related to a previous massive abdominal surgery. Extremities are nonedematous and both femoral and pedal pulses are markedly diminished in the upper extremity. Diminished pulses in lower extremity and extremities are cold. Femoral pulses are present. Pedal pulses are extremely weak and thready. .Examination of the skin revealed no evidence of significant rashes, suspicious appearing nevi or other concerning lesions. Neurologically the patient is currently sedated, unresponsive, not responsive to painful stimulation. Does not respond to verbal stimulation. No facial asymmetry. Pupils around 4-5 mm in size, sluggishly reactive to light and there is no nystagmus and there is no clonus at this point in time. No seizure activity has been noted. - Labs CBC & Chem 7: 10/18/20 04:20 10/18/20 04:20 Labs: Abnormal Lab Results - Last 24 Hours (Table) 10/17/20 10/17/20 10/17/20 Range/Units 09:05 09:40 11:37 WBC (3.8-10.6) k/uL RBC (3.80-5.40) m/uL Hgb (11.4-16.0) gm/dL MCV (80.0-100.0) fL Neutrophils # (Manual) (1.3-7.7) k/uL Lymphocytes # (Manual) (1.0-4.8) k/uL Metamyelocytes # (Man) (0) k/uL PT (9.0-12.0) sec INR (<1.2) ABG pCO2 (35-45) mmHg ABG pO2 (83-108) mmHg ABG HCO3 (21-25) mmol/L Potassium (3.5-5.1) mmol/L Chloride (98-107) mmol/L Carbon Dioxide (22-30) mmol/L Creatinine (0.52-1.04) mg/dL Glucose (74-99) mg/dL POC Glucose (mg/dL) 43 L (75-99) mg/dL Plasma Lactic Acid Eduar 6.2 H* (0.7-2.0) mmol/L Calcium (8.4-10.2) mg/dL Total Bilirubin (0.2-1.3) mg/dL AST (14-36) U/L ALT (4-34) U/L Ammonia (<30) umol/L Total Protein (6.3-8.2) g/dL Albumin (3.5-5.0) g/dL Urine Blood Trace H (Negative) Hyaline Casts 4 H (0-2) /lpf Urine Mucus Rare H (None) /hpf 10/17/20 10/17/20 10/17/20 Range/Units 11:40 11:56 11:57 WBC (3.8-10.6) k/uL RBC (3.80-5.40) m/uL Hgb (11.4-16.0) gm/dL MCV (80.0-100.0) fL Neutrophils # (Manual) (1.3-7.7) k/uL Lymphocytes # (Manual) (1.0-4.8) k/uL Metamyelocytes # (Man) (0) k/uL PT (9.0-12.0) sec INR (<1.2) ABG pCO2 33 L (35-45) mmHg ABG pO2 187 H (83-108) mmHg ABG HCO3 19 L (21-25) mmol/L Potassium (3.5-5.1) mmol/L Chloride (98-107) mmol/L Carbon Dioxide (22-30) mmol/L Creatinine (0.52-1.04) mg/dL Glucose (74-99) mg/dL POC Glucose (mg/dL) 64 L 120 H (75-99) mg/dL Plasma Lactic Acid Eduar (0.7-2.0) mmol/L Calcium (8.4-10.2) mg/dL Total Bilirubin (0.2-1.3) mg/dL AST (14-36) U/L ALT (4-34) U/L Ammonia (<30) umol/L Total Protein (6.3-8.2) g/dL Albumin (3.5-5.0) g/dL Urine Blood (Negative) Hyaline Casts (0-2) /lpf Urine Mucus (None) /hpf 10/17/20 10/17/20 10/17/20 Range/Units 12:35 16:55 16:58 WBC (3.8-10.6) k/uL RBC (3.80-5.40) m/uL Hgb (11.4-16.0) gm/dL MCV (80.0-100.0) fL Neutrophils # (Manual) (1.3-7.7) k/uL Lymphocytes # (Manual) (1.0-4.8) k/uL Metamyelocytes # (Man) (0) k/uL PT (9.0-12.0) sec INR (<1.2) ABG pCO2 (35-45) mmHg ABG pO2 (83-108) mmHg ABG HCO3 (21-25) mmol/L Potassium (3.5-5.1) mmol/L Chloride (98-107) mmol/L Carbon Dioxide (22-30) mmol/L Creatinine (0.52-1.04) mg/dL Glucose (74-99) mg/dL POC Glucose (mg/dL) 120 H (75-99) mg/dL Plasma Lactic Acid Eduar 7.1 H* 8.4 H* (0.7-2.0) mmol/L Calcium (8.4-10.2) mg/dL Total Bilirubin (0.2-1.3) mg/dL AST (14-36) U/L ALT (4-34) U/L Ammonia (<30) umol/L Total Protein (6.3-8.2) g/dL Albumin (3.5-5.0) g/dL Urine Blood (Negative) Hyaline Casts (0-2) /lpf Urine Mucus (None) /hpf 10/17/20 10/17/20 10/18/20 Range/Units 19:50 22:35 00:09 WBC (3.8-10.6) k/uL RBC (3.80-5.40) m/uL Hgb (11.4-16.0) gm/dL MCV (80.0-100.0) fL Neutrophils # (Manual) (1.3-7.7) k/uL Lymphocytes # (Manual) (1.0-4.8) k/uL Metamyelocytes # (Man) (0) k/uL PT (9.0-12.0) sec INR (<1.2) ABG pCO2 (35-45) mmHg ABG pO2 (83-108) mmHg ABG HCO3 (21-25) mmol/L Potassium (3.5-5.1) mmol/L Chloride (98-107) mmol/L Carbon Dioxide (22-30) mmol/L Creatinine (0.52-1.04) mg/dL Glucose (74-99) mg/dL POC Glucose (mg/dL) 101 H (75-99) mg/dL Plasma Lactic Acid Eduar 8.9 H* 8.7 H* (0.7-2.0) mmol/L Calcium (8.4-10.2) mg/dL Total Bilirubin (0.2-1.3) mg/dL AST (14-36) U/L ALT (4-34) U/L Ammonia (<30) umol/L Total Protein (6.3-8.2) g/dL Albumin (3.5-5.0) g/dL Urine Blood (Negative) Hyaline Casts (0-2) /lpf Urine Mucus (None) /hpf 10/18/20 10/18/20 10/18/20 Range/Units 02:00 04:20 04:20 WBC 23.5 H (3.8-10.6) k/uL RBC 3.36 L (3.80-5.40) m/uL Hgb 11.3 L (11.4-16.0) gm/dL MCV 102.8 H (80.0-100.0) fL Neutrophils # (Manual) 22.00 H (1.3-7.7) k/uL Lymphocytes # (Manual) 0.71 L (1.0-4.8) k/uL Metamyelocytes # (Man) 0.47 H (0) k/uL PT (9.0-12.0) sec INR (<1.2) ABG pCO2 (35-45) mmHg ABG pO2 (83-108) mmHg ABG HCO3 (21-25) mmol/L Potassium 3.3 L (3.5-5.1) mmol/L Chloride 115 H (98-107) mmol/L Carbon Dioxide 18 L (22-30) mmol/L Creatinine 1.37 H (0.52-1.04) mg/dL Glucose 150 H (74-99) mg/dL POC Glucose (mg/dL) (75-99) mg/dL Plasma Lactic Acid Eduar 7.8 H* (0.7-2.0) mmol/L Calcium 6.5 L (8.4-10.2) mg/dL Total Bilirubin 3.6 H (0.2-1.3) mg/dL AST 71 H (14-36) U/L ALT 59 H (4-34) U/L Ammonia (<30) umol/L Total Protein 3.3 L (6.3-8.2) g/dL Albumin 1.2 L (3.5-5.0) g/dL Urine Blood (Negative) Hyaline Casts (0-2) /lpf Urine Mucus (None) /hpf 10/18/20 10/18/20 10/18/20 Range/Units 04:20 04:20 04:47 WBC (3.8-10.6) k/uL RBC (3.80-5.40) m/uL Hgb (11.4-16.0) gm/dL MCV (80.0-100.0) fL Neutrophils # (Manual) (1.3-7.7) k/uL Lymphocytes # (Manual) (1.0-4.8) k/uL Metamyelocytes # (Man) (0) k/uL PT 19.8 H (9.0-12.0) sec INR 2.0 H (<1.2) ABG pCO2 29 L (35-45) mmHg ABG pO2 (83-108) mmHg ABG HCO3 18 L (21-25) mmol/L Potassium (3.5-5.1) mmol/L Chloride (98-107) mmol/L Carbon Dioxide (22-30) mmol/L Creatinine (0.52-1.04) mg/dL Glucose (74-99) mg/dL POC Glucose (mg/dL) (75-99) mg/dL Plasma Lactic Acid Eduar (0.7-2.0) mmol/L Calcium (8.4-10.2) mg/dL Total Bilirubin (0.2-1.3) mg/dL AST (14-36) U/L ALT (4-34) U/L Ammonia 108 H (<30) umol/L Total Protein (6.3-8.2) g/dL Albumin (3.5-5.0) g/dL Urine Blood (Negative) Hyaline Casts (0-2) /lpf Urine Mucus (None) /hpf 10/18/20 10/18/20 Range/Units 06:40 06:41 WBC (3.8-10.6) k/uL RBC (3.80-5.40) m/uL Hgb (11.4-16.0) gm/dL MCV (80.0-100.0) fL Neutrophils # (Manual) (1.3-7.7) k/uL Lymphocytes # (Manual) (1.0-4.8) k/uL Metamyelocytes # (Man) (0) k/uL PT (9.0-12.0) sec INR (<1.2) ABG pCO2 (35-45) mmHg ABG pO2 (83-108) mmHg ABG HCO3 (21-25) mmol/L Potassium (3.5-5.1) mmol/L Chloride (98-107) mmol/L Carbon Dioxide (22-30) mmol/L Creatinine (0.52-1.04) mg/dL Glucose (74-99) mg/dL POC Glucose (mg/dL) 164 H (75-99) mg/dL Plasma Lactic Acid Eduar 6.2 H* (0.7-2.0) mmol/L Calcium (8.4-10.2) mg/dL Total Bilirubin (0.2-1.3) mg/dL AST (14-36) U/L ALT (4-34) U/L Ammonia (<30) umol/L Total Protein (6.3-8.2) g/dL Albumin (3.5-5.0) g/dL Urine Blood (Negative) Hyaline Casts (0-2) /lpf Urine Mucus (None) /hpf Microbiology - Last 24 Hours (Table) 10/17/20 07:35 Gram Stain - Preliminary Sputum Sputum Culture - Preliminary Assessment and Plan Plan: 1 altered mental status most likely secondary to Hepatic encephalopathy/metabolic encephalopathy , the patient presented with signs of liver failure as the patient presents with coagulopathy, elevated ammonia level, thrombocytopenia, abnormal LFTs. CAT scan of the brain showing no acute abnormalities other than cerebral atrophy. For now, the patient is still receiving lactulose. Ammonia level is dropping. She is off the propofol this morning sedation holidays being performed for now. 2 liver cirrhosis, suspected clinically and based on blood work 3 abnormal LFTs, ultrasound the liver showed an echoic density in the cameron hepatis. We'll proceed with a indicated CAT scan of the liver. 4 coagulopathy, thrombocytopenia 5 Acute hypoxic respiratory failure , currently intubated on a mechanical ventilator. Chest x-ray was noted. Vent setting was noted. Blood gases was noted. 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 Iatrogenic left-sided pneumothorax and the patient has a thoravent in place with intermittent air leak. 12 hypotension, received a total of 4-1/2 L of IV fluid, may require pressors. 13 acute kidney injury with oligoria, secondary to above Plan Continue lactulose and monitor ammonia level Give the patient is sedation holiday and keep it off the propofol for now Give the patient another IV bolus of 1 L. This will be informed normal saline Proceed with a CAT scan of the liver to evaluate the hepatic mass Echocardiogram shows a preserved LV function with an ejection fraction of 55% Check a pro-calcitonin level Continue empiric antibiotic coverage with IV Zosyn Monitor the white cell count Monitor the lactic acid level and wean off pressors Hold on enteral feeding for now Keep the Thoravent in place as long as there is ongoing air leak. There is no evidence of a pneumothorax and today's chest x-ray Condition remains critical and will continue to follow make further recommendations based on her progress. This evaluation was done more than 30 minutes. Time with Patient: Greater than 30
--- NOTE | 2020-10-18 08:45 | XR ---
EXAMINATION TYPE: XR chest 1V portable DATE OF EXAM: 10/18/2020 COMPARISON: Chest x-ray 10/17/2020 HISTORY: Intubated TECHNIQUE: Single frontal view of the chest is obtained. FINDINGS: Endotracheal tube, NG tube, left subclavian central venous catheter, left-sided thoracic v ent are all in place, endotracheal tube is approximately 1 cm from the alvin. The NG tube shows the side port possibly projecting over the distal esophagus rather than within the stomach. There is pers istent bibasilar density, the left hemidiaphragm is obscured. No evident pneumothorax. Cardiac medias tinal silhouette is stable. Aorta is dense. There may be a spinal curvature. IMPRESSION: NG tube may have withdrawn slightly in the interval, endotracheal tube approximately 1 c m from the alvin. Basilar atelectasis versus pneumonia, there may be associated effusion.
[2020-10-18] MEDS: PIPERACILLIN-TAZOBACTAM 3.375 GM in SODIUM CHLORIDE 0.9% 100 ML IVPB SCH ×2 (09:03→21:25)
[2020-10-18] MEDS: CHLORHEXIDINE GLUCONATE 15 ML CUP MUCOUS MEM SCH ×2 (09:03→21:23)
[2020-10-18] MEDS: levETIRAcetam IV 750 MG in SODIUM CHLORIDE 0.9% 100 ML IVPB SCH (09:03)
[2020-10-18] MEDS: LACTULOSE 20 GM/30 ML CUP PO SCH ×4 (09:07→21:30)
[2020-10-18] MEDS: PANTOPRAZOLE 40 MG/10 ML VIAL IV SCH (09:07)
[2020-10-18] MEDS: RIFAXIMIN 550 MG TABLET PO SCH (09:08)
[2020-10-18] MEDS: IOPAMIDOL CONTRAST (ORAL USE) VIAL PO PRN ×2 (09:09→09:45)
[2020-10-18 09:36] LABS: Glucose,Whole Blood 175 mg/dL (75-99)
--- NOTE | 2020-10-18 09:48 | P.CONS ---
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 Patient is currently seen intubated and sedated in the intensive care unit and history is been taken in conversation with the medical team and on review of the electronic medical record. The patient had been unresponsive at home and the patient's called EMS due to concerns of her mental status. On presentation to the hospital she was found to have ammonia level of 154, INR 1.3, platelet count 217,000, hemoglobin 13.2, total bilirubin 3.1, alkaline phosphatase 194, AST 62 and ALT 70. Currently the patient is intubated and sedated and receiving lactulose and rifaximin therapy. No history of underlying liver disease or reported alcohol abuse. Review of Systems Could not obtain review of system in a patient who is currently intubated and sedated. ROS unobtainable: due to mental status (Could not review the patient is intubated and sedated.) Past Medical History Past Medical History: Cancer, Memory Impairment, Osteoarthritis (OA), Seizure Disorder Additional Past Medical History / Comment(s): Annamaria Stoll syndrome Post resection of the abdomen and the partial gastrectomy, hypertension, history of anxiety, history of depression, history of seizure disorder History of Any Multi-Drug Resistant Organisms: None Reported Past Surgical History: Cholecystectomy, Hysterectomy Additional Past Surgical History / Comment(s): gastrectomy and head of pancreas removed bunionectomy to be bilateral bilateral tubal ligation Past Psychological History: Anxiety, Depression Smoking Status: Unknown if ever smoked Past Alcohol Use History: None Reported Past Drug Use History: Marijuana Additional History: Family history: Cannot review in a patient who is intubated and sedated. Medications and Allergies Home Medications Medication Instructions Recorded Confirmed Type buprenorphine HCL [Subutex] 8 mg SL BID 09/16/15 10/16/20 History levETIRAcetam [Keppra] 750 mg PO BID 09/16/15 10/16/20 History Cholestyramine (with Sugar) 4 gm PO QID 10/16/20 10/16/20 History [Cholestyramine Packet] Cyclobenzaprine [Flexeril] 10 mg PO TID PRN 10/16/20 10/16/20 History Triamterene-Hctz 37.5-25Mg 1 cap PO DAILY 10/16/20 10/16/20 History [Dyazide 37.5-25 Capsule] clonazePAM 1 mg PO TID 10/16/20 10/16/20 History Allergies Allergy/AdvReac Type Severity Reaction Status Date / Time NSAIDS (Non-Steroidal Allergy Unknown Verified 10/16/20 15:46 Anti-Inflamma steroids Allergy Unknown Uncoded 09/16/15 18:44 Physical Exam Vitals: Vital Signs Temp Pulse Resp BP Pulse Ox 10/17/20 11:15 117 H 28 H 75/59 10/17/20 11:00 117 H 28 H 100 10/17/20 10:45 117 H 28 H 10/17/20 10:30 117 H 28 H 10/17/20 10:15 115 H 28 H 80/57 10/17/20 10:00 112 H 28 H 100 10/17/20 09:45 106 H 28 H 10/17/20 09:30 105 H 28 H 10/17/20 09:15 105 H 28 H 10/17/20 09:00 104 H 28 H 88/62 100 10/17/20 08:45 102 H 20 10/17/20 08:30 104 H 28 H 88/69 10/17/20 08:15 97 29 H 91/69 10/17/20 08:00 97.7 F 104 H 29 H 79/53 100 10/17/20 07:45 103 H 29 H 79/53 10/17/20 07:30 107 H 30 H 77/56 10/17/20 07:15 110 H 30 H 77/56 10/17/20 07:00 112 H 31 H 75/50 95 10/17/20 06:00 134 H 31 H 144/29 96 10/17/20 05:00 135 H 36 H 89/68 97 10/17/20 04:00 98.6 F 126 H 34 H 89/68 94 L 10/17/20 03:00 117 H 28 H 90/38 91 L 10/17/20 02:00 114 H 21 96/60 91 L 10/17/20 01:00 116 H 18 153/137 10/17/20 00:00 97.7 F 120 H 62 H 102/79 90 L 10/16/20 23:01 120 H 46 H 102/75 87 L 10/16/20 23:00 120 H 42 H 99/67 87 L 10/16/20 22:00 114 H 22 92 L 10/16/20 21:00 112 H 24 94/75 91 L 10/16/20 20:02 98.2 F 106 H 26 H 113/70 84 L 10/16/20 19:59 97.9 F 101 H 12 107/69 97 10/16/20 19:00 101 H 19 104/71 93 L 10/16/20 18:57 101 H 12 104/71 96 10/16/20 18:00 107 H 29 H 113/74 94 L 10/16/20 17:50 108 H 14 113/74 94 L 10/16/20 17:00 101 H 19 91/58 92 L 10/16/20 16:01 96 12 106/65 98 10/16/20 16:00 100 16 107/75 97 10/16/20 15:02 108 H 21 106/73 97 10/16/20 15:01 110 H 12 106/73 97 10/16/20 14:58 10 L 10/16/20 14:24 97.9 F 98 10 L 93/58 98 Intake and Output 10/16/20 10/17/20 10/17/20 22:59 06:59 14:59 Intake Total 200 3200 898.752 Output Total 500 50 385 Balance -300 3150 513.752 Intake: IV 200 3200 700 0.9 200 3200 100 Piperacillin-Tazobactam 3 100 .375 gm In Sodium Chloride 0.9% 100 ml @ 25 mls/hr IVPB Q12HR [facility] Rx #:[id number] Sodium Chloride 0.9% 1, 400 000 ml @ 100 mls/hr IV . Q10H [facility] Rx#:[id number] levETIRAcetam IV 750 mg 100 In Sodium Chloride 0.9% 100 ml @ 400 mls/hr IVPB Q12HR [facility] Rx#:[id number] Intake, IV Titration 138.752 Amount Norepinephrine 4 mg In 138.752 Sodium Chloride 0.9% 250 ml @ 0.05 MCG/KG/MIN 11. 579 mls/hr IV .[id number] [facility] Rx#:[id number] Oral 60 Output: Chest Tube Drainage 90 Thora-Vent Left Upper 90 Anterior Chest Urine 500 50 295 Other: Voiding Method Indwelling Catheter # Bowel Movements 1 1 Weight 60.781 kg 63 kg ABP, PAP, CO, CI - Last 8 Hours Arterial Blood Pressure 89/52 Arterial Blood Pressure 90/52 Arterial Blood Pressure 93/54 Arterial Blood Pressure 93/54 Arterial Blood Pressure 90/55 Arterial Blood Pressure 96/56 Arterial Blood Pressure 100/57 Arterial Blood Pressure 86/46 Arterial Blood Pressure 92/56 Arterial Blood Pressure 102/61 Arterial Blood Pressure 122/46 Arterial Blood Pressure 105/63 On physical examination, patient appears comfortable in no apparent distress. HEAD: Normocephalic, atraumatic. EYES: No scleral icterus. No conjunctival injection. MOUTH: No lesions, tongue midline. NECK: Trachea midline, no gross abnormalities. CHEST: Coarse respiratory noises in all lung bustos secondary to mechanical ventilation. HEART: Regular rate and rhythm. ABDOMEN: Soft, obese. Bowel sounds are positive. No organomegaly. No guarding or rigidity. EXTREMITIES: No pedal edema. SKIN: No rashes, no jaundice. NEUROLOGIC: Intubated and sedated. Results CBC & Chem 7: 10/18/20 04:20 10/18/20 04:20 Labs: Abnormal Lab Results - Last 24 Hours (Table) 10/16/20 10/16/20 10/16/20 Range/Units 14:26 14:44 14:50 WBC 13.0 H (3.8-10.6) k/uL MCV (80.0-100.0) fL Plt Count 55 L (150-450) k/uL Neutrophils # 11.5 H (1.3-7.7) k/uL Lymphocytes # (Manual) (1.0-4.8) k/uL PT (9.0-12.0) sec INR (<1.2) APTT (22.0-30.0) sec ABG pH (7.35-7.45) ABG pCO2 (35-45) mmHg ABG pO2 (83-108) mmHg ABG HCO3 (21-25) mmol/L ABG Total CO2 (19-24) mmol/L ABG O2 Saturation (94-97) % Sodium (137-145) mmol/L Chloride (98-107) mmol/L Creatinine (0.52-1.04) mg/dL Glucose (74-99) mg/dL POC Glucose (mg/dL) 64 L 140 H (75-99) mg/dL Plasma Lactic Acid Eduar (0.7-2.0) mmol/L Calcium (8.4-10.2) mg/dL Phosphorus (2.5-4.5) mg/dL Total Bilirubin (0.2-1.3) mg/dL AST (14-36) U/L ALT (4-34) U/L Alkaline Phosphatase (38-126) U/L Ammonia (<30) umol/L Troponin I (0.000-0.034) ng/mL Total Protein (6.3-8.2) g/dL Albumin (3.5-5.0) g/dL Urine Appearance (Clear) Urine Blood (Negative) Urine Bilirubin (Negative) Hyaline Casts (0-2) /lpf Urine Mucus (None) /hpf U Tricyclic Antidepress (NotDetected) 10/16/20 10/16/20 10/16/20 Range/Units 14:50 14:50 14:50 WBC (3.8-10.6) k/uL MCV (80.0-100.0) fL Plt Count (150-450) k/uL Neutrophils # (1.3-7.7) k/uL Lymphocytes # (Manual) (1.0-4.8) k/uL PT 20.2 H (9.0-12.0) sec INR 2.1 H (<1.2) APTT 43.1 H (22.0-30.0) sec ABG pH (7.35-7.45) ABG pCO2 (35-45) mmHg ABG pO2 (83-108) mmHg ABG HCO3 (21-25) mmol/L ABG Total CO2 (19-24) mmol/L ABG O2 Saturation (94-97) % Sodium 134 L (137-145) mmol/L Chloride (98-107) mmol/L Creatinine 1.47 H (0.52-1.04) mg/dL Glucose 175 H (74-99) mg/dL POC Glucose (mg/dL) (75-99) mg/dL Plasma Lactic Acid Eduar (0.7-2.0) mmol/L Calcium 6.5 L (8.4-10.2) mg/dL Phosphorus (2.5-4.5) mg/dL Total Bilirubin 2.1 H (0.2-1.3) mg/dL AST 65 H (14-36) U/L ALT 71 H (4-34) U/L Alkaline Phosphatase 215 H (38-126) U/L Ammonia (<30) umol/L Troponin I (0.000-0.034) ng/mL Total Protein 3.7 L (6.3-8.2) g/dL Albumin 1.4 L (3.5-5.0) g/dL Urine Appearance Cloudy H (Clear) Urine Blood (Negative) Urine Bilirubin 1+ H (Negative) Hyaline Casts (0-2) /lpf Urine Mucus Rare H (None) /hpf U Tricyclic Antidepress Detected H (NotDetected) 10/16/20 10/16/20 10/16/20 Range/Units 14:50 14:50 20:52 WBC (3.8-10.6) k/uL MCV (80.0-100.0) fL Plt Count (150-450) k/uL Neutrophils # (1.3-7.7) k/uL Lymphocytes # (Manual) (1.0-4.8) k/uL PT (9.0-12.0) sec INR (<1.2) APTT (22.0-30.0) sec ABG pH 7.49 H (7.35-7.45) ABG pCO2 (35-45) mmHg ABG pO2 52 L* (83-108) mmHg ABG HCO3 29 H (21-25) mmol/L ABG Total CO2 30 H (19-24) mmol/L ABG O2 Saturation 83.4 L (94-97) % Sodium (137-145) mmol/L Chloride (98-107) mmol/L Creatinine (0.52-1.04) mg/dL Glucose (74-99) mg/dL POC Glucose (mg/dL) (75-99) mg/dL Plasma Lactic Acid Eduar (0.7-2.0) mmol/L Calcium (8.4-10.2) mg/dL Phosphorus (2.5-4.5) mg/dL Total Bilirubin (0.2-1.3) mg/dL AST (14-36) U/L ALT (4-34) U/L Alkaline Phosphatase (38-126) U/L Ammonia 129 H (<30) umol/L Troponin I 0.069 H* (0.000-0.034) ng/mL Total Protein (6.3-8.2) g/dL Albumin (3.5-5.0) g/dL Urine Appearance (Clear) Urine Blood (Negative) Urine Bilirubin (Negative) Hyaline Casts (0-2) /lpf Urine Mucus (None) /hpf U Tricyclic Antidepress (NotDetected) 10/16/20 10/17/20 10/17/20 Range/Units 21:10 04:23 04:23 WBC (3.8-10.6) k/uL MCV 100.6 H (80.0-100.0) fL Plt Count (150-450) k/uL Neutrophils # (1.3-7.7) k/uL Lymphocytes # (Manual) 0.56 L (1.0-4.8) k/uL PT (9.0-12.0) sec INR (<1.2) APTT (22.0-30.0) sec ABG pH (7.35-7.45) ABG pCO2 (35-45) mmHg ABG pO2 (83-108) mmHg ABG HCO3 (21-25) mmol/L ABG Total CO2 (19-24) mmol/L ABG O2 Saturation (94-97) % Sodium (137-145) mmol/L Chloride 108 H (98-107) mmol/L Creatinine 1.83 H (0.52-1.04) mg/dL Glucose 62 L (74-99) mg/dL POC Glucose (mg/dL) (75-99) mg/dL Plasma Lactic Acid Eduar (0.7-2.0) mmol/L Calcium 7.2 L (8.4-10.2) mg/dL Phosphorus 4.7 H (2.5-4.5) mg/dL Total Bilirubin 3.1 H (0.2-1.3) mg/dL AST 62 H (14-36) U/L ALT 70 H (4-34) U/L Alkaline Phosphatase 194 H (38-126) U/L Ammonia (<30) umol/L Troponin I 0.069 H* (0.000-0.034) ng/mL Total Protein 3.8 L (6.3-8.2) g/dL Albumin 1.4 L (3.5-5.0) g/dL Urine Appearance (Clear) Urine Blood (Negative) Urine Bilirubin (Negative) Hyaline Casts (0-2) /lpf Urine Mucus (None) /hpf U Tricyclic Antidepress (NotDetected) 10/17/20 10/17/20 10/17/20 Range/Units 04:23 04:23 04:23 WBC (3.8-10.6) k/uL MCV (80.0-100.0) fL Plt Count (150-450) k/uL Neutrophils # (1.3-7.7) k/uL Lymphocytes # (Manual) (1.0-4.8) k/uL PT 13.6 H (9.0-12.0) sec INR 1.3 H (<1.2) APTT 43.9 H (22.0-30.0) sec ABG pH (7.35-7.45) ABG pCO2 (35-45) mmHg ABG pO2 (83-108) mmHg ABG HCO3 (21-25) mmol/L ABG Total CO2 (19-24) mmol/L ABG O2 Saturation (94-97) % Sodium (137-145) mmol/L Chloride (98-107) mmol/L Creatinine (0.52-1.04) mg/dL Glucose (74-99) mg/dL POC Glucose (mg/dL) (75-99) mg/dL Plasma Lactic Acid Eduar 5.0 H* (0.7-2.0) mmol/L Calcium (8.4-10.2) mg/dL Phosphorus (2.5-4.5) mg/dL Total Bilirubin (0.2-1.3) mg/dL AST (14-36) U/L ALT (4-34) U/L Alkaline Phosphatase (38-126) U/L Ammonia 154 H (<30) umol/L Troponin I 0.083 H* (0.000-0.034) ng/mL Total Protein (6.3-8.2) g/dL Albumin (3.5-5.0) g/dL Urine Appearance (Clear) Urine Blood (Negative) Urine Bilirubin (Negative) Hyaline Casts (0-2) /lpf Urine Mucus (None) /hpf U Tricyclic Antidepress (NotDetected) 10/17/20 10/17/20 10/17/20 Range/Units 09:05 09:40 11:37 WBC (3.8-10.6) k/uL MCV (80.0-100.0) fL Plt Count (150-450) k/uL Neutrophils # (1.3-7.7) k/uL Lymphocytes # (Manual) (1.0-4.8) k/uL PT (9.0-12.0) sec INR (<1.2) APTT (22.0-30.0) sec ABG pH (7.35-7.45) ABG pCO2 (35-45) mmHg ABG pO2 (83-108) mmHg ABG HCO3 (21-25) mmol/L ABG Total CO2 (19-24) mmol/L ABG O2 Saturation (94-97) % Sodium (137-145) mmol/L Chloride (98-107) mmol/L Creatinine (0.52-1.04) mg/dL Glucose (74-99) mg/dL POC Glucose (mg/dL) 43 L (75-99) mg/dL Plasma Lactic Acid Eduar 6.2 H* (0.7-2.0) mmol/L Calcium (8.4-10.2) mg/dL Phosphorus (2.5-4.5) mg/dL Total Bilirubin (0.2-1.3) mg/dL AST (14-36) U/L ALT (4-34) U/L Alkaline Phosphatase (38-126) U/L Ammonia (<30) umol/L Troponin I (0.000-0.034) ng/mL Total Protein (6.3-8.2) g/dL Albumin (3.5-5.0) g/dL Urine Appearance (Clear) Urine Blood Trace H (Negative) Urine Bilirubin (Negative) Hyaline Casts 4 H (0-2) /lpf Urine Mucus Rare H (None) /hpf U Tricyclic Antidepress (NotDetected) 10/17/20 10/17/20 10/17/20 Range/Units 11:40 11:56 11:57 WBC (3.8-10.6) k/uL MCV (80.0-100.0) fL Plt Count (150-450) k/uL Neutrophils # (1.3-7.7) k/uL Lymphocytes # (Manual) (1.0-4.8) k/uL PT (9.0-12.0) sec INR (<1.2) APTT (22.0-30.0) sec ABG pH (7.35-7.45) ABG pCO2 33 L (35-45) mmHg ABG pO2 187 H (83-108) mmHg ABG HCO3 19 L (21-25) mmol/L ABG Total CO2 (19-24) mmol/L ABG O2 Saturation (94-97) % Sodium (137-145) mmol/L Chloride (98-107) mmol/L Creatinine (0.52-1.04) mg/dL Glucose (74-99) mg/dL POC Glucose (mg/dL) 64 L 120 H (75-99) mg/dL Plasma Lactic Acid Eduar (0.7-2.0) mmol/L Calcium (8.4-10.2) mg/dL Phosphorus (2.5-4.5) mg/dL Total Bilirubin (0.2-1.3) mg/dL AST (14-36) U/L ALT (4-34) U/L Alkaline Phosphatase (38-126) U/L Ammonia (<30) umol/L Troponin I (0.000-0.034) ng/mL Total Protein (6.3-8.2) g/dL Albumin (3.5-5.0) g/dL Urine Appearance (Clear) Urine Blood (Negative) Urine Bilirubin (Negative) Hyaline Casts (0-2) /lpf Urine Mucus (None) /hpf U Tricyclic Antidepress (NotDetected) US - abdomen: report reviewed (Heterogeneous hyperattenuating liver on ultrasound of the liver.) Assessment and Plan (1) Elevated liver enzymes Narrative/Plan: 60-year-old female with multiple medical comorbidities including 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 Patient was found by her unresponsive and EMS was called. Patient found to have elevated liver enzymes on presentation with total bilirubin 3.1, alkaline phosphatase 194, AST 62 and ALT 70 with an ammonia level of 154. No reported history of alcoholic liver disease or chronic liver disease however limited history from the family and upon the review of the medical record as the patient is unable to provide history at this time. Currently she is receiving lactulose and Xifaxan therapy and intubated in the ICU. Current Visit: Yes Status: Acute Code(s): R74.8 - ABNORMAL LEVELS OF OTHER SERUM ENZYMES SNOMED Code(s): 972864559 (2) Hepatic encephalopathy Current Visit: Yes Status: Acute Code(s): K72.90 - HEPATIC FAILURE, UNSPECIFIED WITHOUT COMA SNOMED Code(s): 89764692 Plan: Supportive care Nothing by mouth Continue ICU management Continue monitor CBC, BMP, LFTs and INR At on acetaminophen level ordered Acute viral hepatitis panel ordered Ultrasound of the abdomen ordered and reviewed Continue rifaximin therapy twice daily Continue lactulose therapy and titrate for 3-4 bowel movements daily Consider further imaging of the liver given abnormal findings Continue to monitor clinically Full liver serology will be ordered Thank you for allowing us to participate in the care of the patient
--- NOTE | 2020-10-18 10:50 | CT ---
EXAMINATION TYPE: CT abdomen pelvis w con DATE OF EXAM: 10/18/2020 COMPARISON: 03/21/2015 as well as ultrasound liver 10/17/2020 HISTORY: Liver mass CT DLP: 1085.9 mGycm CONTRAST: CT scan of the abdomen and pelvis is performed with Oral Contrast and with IV Contrast, patient injec verónica with 80 mL of Isovue 300. FINDINGS: LUNG BASES-: Noted are infrahilar and basilar infiltrates likely on the basis of pneumonia. There is a large left-sided pneumothorax is partially imaged. Left-sided pleural catheter is in place. LIVER/GB: There is evidence of hepatomegaly with diffuse underlying hepatocellular disease or underly ing fatty hepatic infiltration. No distinct mass is appreciated with certainty. There is evidence of pneumobilia and changes of prior cholecystectomy. No space occupying hepatic lesion. PANCREAS: No inflammation. No distinct mass. SPLEEN: No splenic enlargement. No lesion seen. ADRENALS: No nodule. No thickening. KIDNEYS/BLADDER: No hydronephrosis. No nephrolithiasis. No distinct renal mass. Urinary bladder g rossly unremarkable. BOWEL: Normal appendix. There is evidence of diffuse colonic wall thickening extending from the rectu m to the cecum. Correlate for pseudomembranous colitis. There is moderate fixed hiatal hernia. GENITAL ORGANS: No gross abnormality. LYMPH NODES: No greater than 1cm abdominal or pelvic lymph nodes are appreciated. AORTA: No significant abnormality. OSSEOUS STRUCTURES: No significant abnormality is seen. OTHER: Extensive pancreas edema as well as edema of the mesentery and pleural effusions suggest under lying anasarca. There is evidence of ascites. IMPRESSION: 1. Large partially imaged left-sided pneumothorax. Thoracic vent is in place. 2. Infrahilar and basilar infiltrates as well as evidence of ascites. Correlate for pneumonia. 3. Hepatomegaly with underlying fatty hepatic infiltration. 4. Tiny suggest pseudomembranous colitis. Correlate clinically. 5. Anasarca.
[2020-10-18 11:41] LABS: Glucose,Whole Blood 172 mg/dL (75-99)
[2020-10-18] MEDS: SODIUM CHLORIDE 0.9% 1,000 ML IV SCH ×2 (12:19→21:31)
[2020-10-18] MEDS: INSULIN ASPART (NovoLOG) 100 UNIT/ML VIAL SQ SCH ×2 (12:26→17:10)
[2020-10-18] MEDS: DEXTROSE 5%-0.9% NACL 1,000 ML IV SCH (12:27)
[2020-10-18] MEDS: RIFAXIMIN 550 MG TABLET NG-TUBE SCH ×2 (12:36→21:30)
--- NOTE | 2020-10-18 14:27 | P.PN ---
Subjective Progress Note Date: 10/18/20 Principal diagnosis: Hepatic encephalopathy The patient is seen and examined lying in bed in the ICU. She remains intubated, however sedation has been weaned but she's been unresponsive. EEG has been ordered by primary team. Ammonia level is improving, he is having multiple loose stools, rectal tube in place. No signs of GI bleed. Hepatitis serologies negative. Objective - Vital Signs Vital signs: Vital Signs Temp 97.6 F 10/18/20 12:00 Pulse 68 10/18/20 14:00 Resp 28 H 10/18/20 14:00 BP 85/56 10/18/20 14:00 Pulse Ox 97 10/18/20 14:00 Intake & Output 10/17/20 10/18/20 10/18/20 18:59 06:59 18:59 Intake Total 6964.808 2184.220 2123.664 Output Total 695 510 445 Balance 6495.574 6760.220 1678.664 Weight 68.3 kg 68.3 kg Intake: IV 1400 300 100 0.9 100 Piperacillin-Tazobactam 3 100 100 .375 gm In Sodium Chloride 0.9% 100 ml @ 25 mls/hr IVPB Q12HR MARIA A Rx #:[id number] Sodium Chloride 0.9% 1, 1100 100 000 ml @ 100 mls/hr IV . Q10H MARIA A Rx#:[id number] levETIRAcetam IV 750 mg 100 100 100 In Sodium Chloride 0.9% 100 ml @ 400 mls/hr IVPB Q12HR MARIA A Rx#:[id number] Intake, IV Titration 488.664 0812.220 2023.664 Amount Dextrose 5%-0.9% NaCl 1, 1100 400 000 ml @ 100 mls/hr IV . Q10H MARIA A Rx#:[id number] Magnesium Sulfate-D5w Pmx 100 100 1 gm In Dextrose/Water 1 100ml.bag @ 100 mls/hr IVPB Q1H MARIA A Rx#: [id number] Norepinephrine 4 mg In 254.000 514.910 123.664 Sodium Chloride 0.9% 250 ml @ 0.05 MCG/KG/MIN 11. 579 mls/hr IV .[id number] MARIA A Rx#:[id number] Piperacillin-Tazobactam 3 100 .375 gm In Sodium Chloride 0.9% 100 ml @ 25 mls/hr IVPB Q12HR MARIA A Rx #:[id number] Sodium Chloride 0.9% 1, 300 000 ml @ 100 mls/hr IV . Q10H MARIA A Rx#:[id number] Sodium Chloride 0.9% 1, 1000 1000 000 ml @ 999 mls/hr IV . Q1H1M ONE Rx#:[id number] Sodium Chloride 0.9% 1, 1000 000 ml @ 999 mls/hr IV . Q1H1M ONE Rx#:[id number] propofoL 500 mg In Empty 69.310 Bag 1 bag @ Titrate IV . Q0M MARIA A Rx#:[id number] Oral 60 Other 90 Output: Chest Tube Drainage 220 220 0 Thora-Vent Left Upper 220 220 0 Anterior Chest Urine 475 290 445 Other: Voiding Method Indwelling Catheter Indwelling Catheter Indwelling Catheter # Bowel Movements 1 ABP, PAP, CO, CI - Last Documented Arterial Blood Pressure 105/56 - Exam General appearance: Nonresponsive on mechanical ventilation. HET: Head is normocephalic and atraumatic. Conjunctiva pink. Sclera anicteric Neck: Supple without lymphadenopathy. Abdomen: Soft, nontender, nondistended with bowel sounds. No guarding or rigidity. Extremities: Normal skin color and turgor. No pedal edema Skin: No rashes, no jaundice. Neurological: Nonresponsive, on mechanical ventilation - Labs CBC & Chem 7: 10/18/20 04:20 10/18/20 04:20 Labs: Abnormal Lab Results - Last 24 Hours (Table) 10/17/20 10/17/20 10/17/20 Range/Units 16:55 16:58 19:50 WBC (3.8-10.6) k/uL RBC (3.80-5.40) m/uL Hgb (11.4-16.0) gm/dL MCV (80.0-100.0) fL Neutrophils # (Manual) (1.3-7.7) k/uL Lymphocytes # (Manual) (1.0-4.8) k/uL Metamyelocytes # (Man) (0) k/uL PT (9.0-12.0) sec INR (<1.2) ABG pCO2 (35-45) mmHg ABG HCO3 (21-25) mmol/L Potassium (3.5-5.1) mmol/L Chloride (98-107) mmol/L Carbon Dioxide (22-30) mmol/L Creatinine (0.52-1.04) mg/dL Glucose (74-99) mg/dL POC Glucose (mg/dL) 120 H (75-99) mg/dL Plasma Lactic Acid Eduar 8.4 H* 8.9 H* (0.7-2.0) mmol/L Calcium (8.4-10.2) mg/dL Total Bilirubin (0.2-1.3) mg/dL AST (14-36) U/L ALT (4-34) U/L Ammonia (<30) umol/L Total Protein (6.3-8.2) g/dL Albumin (3.5-5.0) g/dL 10/17/20 10/18/20 10/18/20 Range/Units 22:35 00:09 02:00 WBC (3.8-10.6) k/uL RBC (3.80-5.40) m/uL Hgb (11.4-16.0) gm/dL MCV (80.0-100.0) fL Neutrophils # (Manual) (1.3-7.7) k/uL Lymphocytes # (Manual) (1.0-4.8) k/uL Metamyelocytes # (Man) (0) k/uL PT (9.0-12.0) sec INR (<1.2) ABG pCO2 (35-45) mmHg ABG HCO3 (21-25) mmol/L Potassium (3.5-5.1) mmol/L Chloride (98-107) mmol/L Carbon Dioxide (22-30) mmol/L Creatinine (0.52-1.04) mg/dL Glucose (74-99) mg/dL POC Glucose (mg/dL) 101 H (75-99) mg/dL Plasma Lactic Acid Eduar 8.7 H* 7.8 H* (0.7-2.0) mmol/L Calcium (8.4-10.2) mg/dL Total Bilirubin (0.2-1.3) mg/dL AST (14-36) U/L ALT (4-34) U/L Ammonia (<30) umol/L Total Protein (6.3-8.2) g/dL Albumin (3.5-5.0) g/dL 10/18/20 10/18/20 10/18/20 Range/Units 04:20 04:20 04:20 WBC 23.5 H (3.8-10.6) k/uL RBC 3.36 L (3.80-5.40) m/uL Hgb 11.3 L (11.4-16.0) gm/dL MCV 102.8 H (80.0-100.0) fL Neutrophils # (Manual) 22.00 H (1.3-7.7) k/uL Lymphocytes # (Manual) 0.71 L (1.0-4.8) k/uL Metamyelocytes # (Man) 0.47 H (0) k/uL PT (9.0-12.0) sec INR (<1.2) ABG pCO2 (35-45) mmHg ABG HCO3 (21-25) mmol/L Potassium 3.3 L (3.5-5.1) mmol/L Chloride 115 H (98-107) mmol/L Carbon Dioxide 18 L (22-30) mmol/L Creatinine 1.37 H (0.52-1.04) mg/dL Glucose 150 H (74-99) mg/dL POC Glucose (mg/dL) (75-99) mg/dL Plasma Lactic Acid Eduar (0.7-2.0) mmol/L Calcium 6.5 L (8.4-10.2) mg/dL Total Bilirubin 3.6 H (0.2-1.3) mg/dL AST 71 H (14-36) U/L ALT 59 H (4-34) U/L Ammonia 108 H (<30) umol/L Total Protein 3.3 L (6.3-8.2) g/dL Albumin 1.2 L (3.5-5.0) g/dL 10/18/20 10/18/20 10/18/20 Range/Units 04:20 04:47 06:40 WBC (3.8-10.6) k/uL RBC (3.80-5.40) m/uL Hgb (11.4-16.0) gm/dL MCV (80.0-100.0) fL Neutrophils # (Manual) (1.3-7.7) k/uL Lymphocytes # (Manual) (1.0-4.8) k/uL Metamyelocytes # (Man) (0) k/uL PT 19.8 H (9.0-12.0) sec INR 2.0 H (<1.2) ABG pCO2 29 L (35-45) mmHg ABG HCO3 18 L (21-25) mmol/L Potassium (3.5-5.1) mmol/L Chloride (98-107) mmol/L Carbon Dioxide (22-30) mmol/L Creatinine (0.52-1.04) mg/dL Glucose (74-99) mg/dL POC Glucose (mg/dL) (75-99) mg/dL Plasma Lactic Acid Eduar 6.2 H* (0.7-2.0) mmol/L Calcium (8.4-10.2) mg/dL Total Bilirubin (0.2-1.3) mg/dL AST (14-36) U/L ALT (4-34) U/L Ammonia (<30) umol/L Total Protein (6.3-8.2) g/dL Albumin (3.5-5.0) g/dL 10/18/20 10/18/20 10/18/20 Range/Units 06:41 09:30 09:33 WBC (3.8-10.6) k/uL RBC (3.80-5.40) m/uL Hgb (11.4-16.0) gm/dL MCV (80.0-100.0) fL Neutrophils # (Manual) (1.3-7.7) k/uL Lymphocytes # (Manual) (1.0-4.8) k/uL Metamyelocytes # (Man) (0) k/uL PT (9.0-12.0) sec INR (<1.2) ABG pCO2 (35-45) mmHg ABG HCO3 (21-25) mmol/L Potassium (3.5-5.1) mmol/L Chloride (98-107) mmol/L Carbon Dioxide (22-30) mmol/L Creatinine (0.52-1.04) mg/dL Glucose (74-99) mg/dL POC Glucose (mg/dL) 164 H 175 H (75-99) mg/dL Plasma Lactic Acid Eduar 5.2 H* (0.7-2.0) mmol/L Calcium (8.4-10.2) mg/dL Total Bilirubin (0.2-1.3) mg/dL AST (14-36) U/L ALT (4-34) U/L Ammonia (<30) umol/L Total Protein (6.3-8.2) g/dL Albumin (3.5-5.0) g/dL 10/18/20 Range/Units 11:39 WBC (3.8-10.6) k/uL RBC (3.80-5.40) m/uL Hgb (11.4-16.0) gm/dL MCV (80.0-100.0) fL Neutrophils # (Manual) (1.3-7.7) k/uL Lymphocytes # (Manual) (1.0-4.8) k/uL Metamyelocytes # (Man) (0) k/uL PT (9.0-12.0) sec INR (<1.2) ABG pCO2 (35-45) mmHg ABG HCO3 (21-25) mmol/L Potassium (3.5-5.1) mmol/L Chloride (98-107) mmol/L Carbon Dioxide (22-30) mmol/L Creatinine (0.52-1.04) mg/dL Glucose (74-99) mg/dL POC Glucose (mg/dL) 172 H (75-99) mg/dL Plasma Lactic Acid Eduar (0.7-2.0) mmol/L Calcium (8.4-10.2) mg/dL Total Bilirubin (0.2-1.3) mg/dL AST (14-36) U/L ALT (4-34) U/L Ammonia (<30) umol/L Total Protein (6.3-8.2) g/dL Albumin (3.5-5.0) g/dL Microbiology - Last 24 Hours (Table) 10/17/20 07:35 Gram Stain - Preliminary Sputum Sputum Culture - Preliminary Gram Neg Bacilli Assessment and Plan (1) Elevated liver enzymes Narrative/Plan: 60-year-old female with multiple medical comorbidities including 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 Patient was found by her unresponsive and EMS was called. Patient found to have elevated liver enzymes on presentation with total bilirubin 3.1, alkaline phosphatase 194, AST 62 and ALT 70 with an ammonia level of 154. No reported history of alcoholic liver disease or chronic liver disease however limited history from the family and upon the review of the medical record as the patient is unable to provide history at this time. Currently she is receiving lactulose and Xifaxan therapy and intubated in the ICU. The liver serology ordered, acetaminophen level ordered which was less than 10, hepatitis serology ordered negative 3. Current Visit: Yes Status: Acute Code(s): R74.8 - ABNORMAL LEVELS OF OTHER SERUM ENZYMES SNOMED Code(s): 851678292 (2) Hepatic encephalopathy Narrative/Plan: Primary team ordered EEG, pending. Current Visit: Yes Status: Acute Code(s): K72.90 - HEPATIC FAILURE, UNSPECIFIED WITHOUT COMA SNOMED Code(s): 86014115 Plan: Supportive care Nothing by mouth Continue ICU management Continue monitor CBC, BMP, LFTs and INR Acetaminophen level ordered Acute viral hepatitis panel ordered Ultrasound of the abdomen ordered and reviewed Continue rifaximin therapy twice daily Continue lactulose therapy and titrate for 3-[address] of abdomen was ordered and reviewed, showing no evidence of liver mass. Continue to monitor clinically Full liver serology ordered Thank you for allowing us to participate in the care of the patient we will continue to follow Dr. Santiago I agree with the dictator's note, documented as a scribe by Yulissa Mccartney.
[2020-10-18 15:21] VITALS: BP 93/67
--- NOTE | 2020-10-18 15:44 | CONS ---
CONSULTATION REASON FOR CONSULT: Renal failure. HISTORY OF PRESENT ILLNESS: Patient is a 60-year-old female who was admitted to the hospital with history of mental status changes. She was admitted on 10/16/2020. Subsequently, patient was intubated. She has underlying history of seizure disorder, EtOH abuse and remote history of other drug abuse as well. The patient is currently on the vent. Creatinine is 1.37. It had peaked to 1.83 yesterday and it was 1.47 on initial admission. Prior creatinine 0.9 on 06/19/2020. Patient has been hypotensive requiring pressors, currently Levophed has been decreasing. She was septic with lactic acidosis with lactic acid peaking at 8.9, now it is down to 5.2. Patient has received fluid boluses as well. COVID PCR is currently negative and urine drug screen showed tricyclic antidepressants. Chest x-ray shows basilar atelectasis versus pneumonia. The patient also had an abdominal and pelvis CT scan done earlier today, which shows no evidence of hydronephrosis; possible pseudomembranous colitis. A central line was placed on the left side and patient developed a pneumothorax for which she is currently with a chest tube. 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 PAST SURGICAL HISTORY: Cholecystectomy, hysterectomy, gastrectomy and removal of the head of the pancreas, bilateral tubal ligation, bunionectomy. SOCIAL HISTORY: Negative for smoking. Positive use of marijuana and EtOH. MEDICATIONS: Medications prior to admission included Subutex, Keppra, Flexeril, clonazepam, Dyazide. ALLERGIES: Allergies include NSAIDs and STEROIDS, type of reaction not known. REVIEW OF SYSTEMS: Negative for ongoing bleeding. The patient has maintain urine output. No current fevers. No ongoing seizures noted at this time. PHYSICAL EXAMINATION: Currently, the patient is sedated. She is on the vent. Blood pressure is low 103/58, heart rate 75 per minute. She is afebrile. EXAMINATION OF THE HEART: S1, S2. EXAMINATION OF THE LUNGS: Bilateral breath sounds are heard. Abdomen is soft. Examination of lower extremities shows edema 1+ bilaterally. Chronic skin changes noted. She has discoloration of the left big toe. 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 LABS: Labs show hemoglobin 11.3, platelet count 153,000, white cell count 23.5. Sodium 142, potassium 3.3, chloride 115, CO2 is 18, BUN 13, creatinine 1.37. Lactic acid 5.2. Albumin 1.2. UA is fairly unremarkable with trace blood, 1+ bilirubin. COVID PCR negative. Drug screen positive for tricyclic antidepressants. CT of the abdomen negative for any hydronephrosis, kidney stones, some possible pseudomembranous colitis, some pleural effusions and left pneumothorax noted. ASSESSMENT: 1. Acute kidney injury, acute tubular necrosis, associated with hypotension, sepsis, now nonoliguric with improved renal function. Continue IV fluid administration. Urine output is maintained. 2. Sepsis, source possibly abdominal versus pneumonia, maintained on antibiotics. Urine does not appear to show any underlying urinary tract infection. 3. Left pneumothorax, currently with chest tube post left subclavian central line placement. 4. Mental status changes associated with possible drug overdose. No evidence of seizures. 5. Acute hypoxic respiratory failure. 6. Chronic liver disease with abnormal LFTs, coagulopathy, elevated ammonia level with concern for metabolic encephalopathy from hepatic encephalopathy. PLAN: Continue with IV fluids. Replace potassium. Add bicarb if the patient remains acidotic tomorrow. Continue to avoid nephrotoxic agents. Continue empiric antibiotics. Try to wean down pressors. Thank you for this consultation. Will continue to follow the patient with you during her hospitalization. MMODL / IJN: [id number] /
--- NOTE | 2020-10-18 16:11 | EEG ---
ELECTROENCEPHALOGRAM REPORT DATE OF SERVICE: 10/18/2020 PREAMBLE: This is a 60-year-old female who presents with unresponsiveness at home for 6 hours. Sedation was turned off at 5 a.m. about 8 hours prior to this study. The patient does have a history of polysubstance abuse and alcohol. EEG FINDINGS: This is a 21 channel portable EEG recording in a patient utilizing 10-20 international system with referential and bipolar montages. The background consists of poorly developed and regulated background, with presence of very frequent high- amplitude sharply controlled waves, which appears triphasic sometimes, and sometimes have sharp morphology with phase reversal. No motor activity was noted during the entire study. Different stages of sleep were not seen. Photic driving response was not seen. IMPRESSION: This is an abnormal EEG due to presence of frequent, about 2-3 hertz sharply contoured waves in bihemispheric region, which at times appears triphasic in nature, but sometimes have a sharp quality with phase reversal. This is suggestive of generalized cerebral dysfunction as can be seen with toxic metabolic encephalopathies or due to diffuse structural brain abnormality. The presence of triphasic waves suggests hepatic encephalopathy. Intermittent sharp appearing waves also suggest underlying cortical irritability and tendency for seizure. Nonconvulsive status cannot be ruled out. Followup EEG recommended as clinically indicated. MMODL / IJN: [id number] / [facility]
[2020-10-18 17:03] LABS: Glucose,Whole Blood 117 mg/dL (75-99)
[2020-10-18] MEDS: POTASSIUM CHLORIDE 20 MEQ in WATER FOR INJECTION 1 100ML.BAG IVPB SCH ×2 (17:13→19:09)
[2020-10-18] MEDS ORDERED: LORazepam 2 MG/ML INJ IV STA (18:02)
--- NOTE | 2020-10-18 18:11 | P.CNNES ---
History of Present Illness Consult date: 10/18/20 Requesting physician: Tim Lomas Reason for Consult: Mental status change History of Present Illness: Patient is a 60-year-old female, who was brought to the hospital 08/15/2021 after she has been unresponsive for 6 hours. Patient has history of pancreatic cancer. Patient was fine the night prior to arrival. In the morning and woke up, and noted she has been unresponsive for the last 6 hours and he decided to call the ambulance after 6 hours. The patient was not able to verbally respond only will respond to some tactile stimulation. CT of the head showed no acute abnormality. Patient developed respiratory distress, and was intubated yesterday to 06/26/2021. Patient also had developed pneumothorax. Patient continues to be on mechanical ventilation. No seizures have been observed. Patient is almost comatose. Patient is off sedation since 5 AM. Patient's white cells on arrival was 13,000, which now has gone up to 23.5, hemoglobin 11.3. Platelets were 55 on arrival but now is 153. Patient's INR is 2.0, PTT 43.9. Her current ABG shows pH 7.4, pCO2 29, pO2 97 and saturation 94%. AST is 71, ALT 59, troponin mildly elevated. Urine drug screen positive for tricyclic antidepressants. Patient's Keppra level was 27.0 (3-60). Hepatitis panel negative. Ammonia was 129 on admission, went up to 154 yesterday and then today is 108. CT of abdomen and pelvis shows large partially imaged left-sided pneumothorax. Thoracic vent in place. Infrahilar and basilar infiltrates as well as evidence of ascites. Correlate for pneumonia. Hepatomegaly with underlying fatty hepatic infiltration. Tiny suggest pseudomembranous colitis. Anasarca. Hepatic ultrasound showed markedly abnor mal appearance of the liver which is heterogeneous and hyperlipidemia waiting most likely on the basis of fatty infiltration or diffuse hepatocellular disease. However, there is an irregular hypoechoic area near the cameron hepatis, for which computed tomography scan or MRI recommended. 2-D echo shows EF 50- 55%. Aortic valve is not well visualized. Patient had an EEG performed today, which was abnormal due to presence of frequent about 2-3 Hz sharply contoured waves in bihemispheric region, which at times appear triphasic in nature but other times have sharp quality with phase reversal. This suggestive of generalized cerebral dysfunction as can be seen with toxic metabolic encephalopathies or due to diffuse structural brain abnormality. The presence of triphasic waves suggest hepatic encephalopathy. Intermittent generalized sharp waves suggest underlying cortical irritability and tendency for seizure. Nonconvulsive status cannot be ruled out. Clinical and laboratory correlation is recommended. Follow-up EEGs recommended. 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, hypertension, history of anxiety, history of depression, history of seizure disorder History of Any Multi-Drug Resistant Organisms: None Reported Past Surgical History: Cholecystectomy, Hysterectomy Additional Past Surgical History / Comment(s): gastrectomy and head of pancreas removed bunionectomy to be bilateral bilateral tubal ligation Past Psychological History: Anxiety, Depression Smoking Status: Unknown if ever smoked Past Alcohol Use History: None Reported Past Drug Use History: Marijuana Medications and Allergies Home Medications Medication Instructions Recorded Confirmed Type buprenorphine HCL [Subutex] 8 mg SL BID 09/16/15 10/16/20 History levETIRAcetam [Keppra] 750 mg PO BID 09/16/15 10/16/20 History Cholestyramine (with Sugar) 4 gm PO QID 10/16/20 10/16/20 History [Cholestyramine Packet] Cyclobenzaprine [Flexeril] 10 mg PO TID PRN 10/16/20 10/16/20 History Triamterene-Hctz 37.5-25Mg 1 cap PO DAILY 10/16/20 10/16/20 History [Dyazide 37.5-25 Capsule] clonazePAM 1 mg PO TID 10/16/20 10/16/20 History Allergies Allergy/AdvReac Type Severity Reaction Status Date / Time NSAIDS (Non-Steroidal Allergy Unknown Verified 10/16/20 15:46 Anti-Inflamma steroids Allergy Unknown Uncoded 09/16/15 18:44 Physical Examination - Vital Signs Vital Signs: Vital Signs Temp Pulse Resp BP Pulse Ox 10/18/20 15:00 64 28 H 93/67 96 10/18/20 14:00 68 28 H 97 10/18/20 13:00 71 28 H 99 10/18/20 12:00 97.6 F 67 28 H 99 10/18/20 11:00 75 28 H 85/56 97 10/18/20 10:00 68 28 H 98 10/18/20 09:00 64 28 H 87/65 99 10/18/20 08:00 76 28 H 93/57 98 10/18/20 07:00 78 28 H 90/62 98 10/18/20 06:00 73 28 H 97/66 98 10/18/20 05:00 79 28 H 98 10/18/20 04:00 98.3 F 80 29 H 97/63 98 10/18/20 03:54 28 H 10/18/20 03:00 90 28 H 95/66 97 10/18/20 02:00 87 28 H 96 10/18/20 01:00 96 28 H 99 10/18/20 00:00 98.2 F 109 H 28 H 98 10/17/20 23:07 105 H 28 H 97 10/17/20 23:00 105 H 28 H 98/61 98 10/17/20 22:00 96 28 H 97/71 96 10/17/20 21:00 104 H 28 H 94/63 96 10/17/20 20:00 98.7 F 111 H 28 H 90/66 99 10/17/20 19:00 109 H 29 H 100 10/17/20 18:45 102 H 29 H 10/17/20 18:30 106 H 29 H 10/17/20 18:15 108 H 29 H 10/17/20 18:00 114 H 30 H 97 10/17/20 17:45 109 H 28 H 10/17/20 17:30 108 H 28 H 10/17/20 17:15 108 H 28 H 94/70 10/17/20 17:00 109 H 29 H 96 10/17/20 16:45 107 H 29 H 10/17/20 16:30 108 H 32 H 10/17/20 16:15 108 H 30 H 78/53 Intake and Output 10/18/20 10/18/20 10/18/20 06:59 14:59 22:59 Intake Total 7132.013 2123.664 100 Output Total 365 445 150 Balance 9802.551 6748.664 -50 Intake: IV 100 levETIRAcetam IV 750 mg 100 In Sodium Chloride 0.9% 100 ml @ 400 mls/hr IVPB Q12HR [facility] Rx#:[id number] Intake, IV Titration 2165.013 2023.664 100 Amount Dextrose 5%-0.9% NaCl 1, 800 400 000 ml @ 100 mls/hr IV . Q10H [facility] Rx#:[id number] Magnesium Sulfate-D5w Pmx 100 100 1 gm In Dextrose/Water 1 100ml.bag @ 100 mls/hr IVPB Q1H [facility] Rx#: [id number] Norepinephrine 4 mg In 216.525 123.664 Sodium Chloride 0.9% 250 ml @ 0.05 MCG/KG/MIN 11. 579 mls/hr IV .[id number] [facility] Rx#:[id number] Piperacillin-Tazobactam 3 100 .375 gm In Sodium Chloride 0.9% 100 ml @ 25 mls/hr IVPB Q12HR [facility] Rx #:[id number] Sodium Chloride 0.9% 1, 300 100 000 ml @ 100 mls/hr IV . Q10H [facility] Rx#:[id number] Sodium Chloride 0.9% 1, 1000 000 ml @ 999 mls/hr IV . Q1H1M [facility] Rx#:[id number] Sodium Chloride 0.9% 1, 1000 000 ml @ 999 mls/hr IV . Q1H1M [facility] Rx#:[id number] propofoL 500 mg In Empty 48.488 Bag 1 bag @ Titrate IV . Q0M [facility] Rx#:[id number] Other 90 Output: Chest Tube Drainage 150 0 100 Thora-Vent Left Upper 150 0 100 Anterior Chest Urine 215 445 50 Other: Voiding Method Indwelling Catheter Indwelling Catheter Weight 68.3 kg 68.3 kg ABP, PAP, CO, CI - Last 8 Hours Arterial Blood Pressure 112/60 Arterial Blood Pressure 105/56 Arterial Blood Pressure 110/59 Arterial Blood Pressure 102/53 Arterial Blood Pressure 103/58 Arterial Blood Pressure 104/61 Arterial Blood Pressure 100/53 On examination patient is an elderly female, who is intubated. Patient is not on any sedation. Patient is comatose, not following any commands. Patient sometimes makes facial grimacing on painful stimuli but otherwise does not respond. Patient's pupils are round and reacting, oculocephalics are absent. Corneal reflexes absent. Patient has a very weak cough and gag reflex. Patient has significant peripheral edema in the lower extremities. Tone is equal. Reflexes are diminished. Plantars are upgoing. Sensory, motor functions cannot be assessed except as above. Cerebellar functions cannot be assessed. No obvious facial twitching, or seizure-like activity noted. Results - Laboratory Findings CBC and BMP: 10/19/20 05:00 10/19/20 05:00 Abnormal Lab Findings: Abnormal Labs 10/16/20 10/16/20 10/16/20 14:26 14:44 14:50 WBC 13.0 H RBC Hgb MCV Plt Count 55 L Neutrophils # 11.5 H Neutrophils # (Manual) Lymphocytes # (Manual) Metamyelocytes # (Man) PT INR APTT ABG pH ABG pCO2 ABG pO2 ABG HCO3 ABG Total CO2 ABG O2 Saturation Sodium Potassium Chloride Carbon Dioxide Creatinine Glucose POC Glucose (mg/dL) 64 L 140 H Plasma Lactic Acid Eduar Calcium Phosphorus Total Bilirubin AST ALT Alkaline Phosphatase Ammonia Troponin I Total Protein Albumin Urine Appearance Urine Blood Urine Bilirubin Hyaline Casts Urine Mucus U Tricyclic Antidepress 10/16/20 10/16/20 10/16/20 14:50 14:50 14:50 WBC RBC Hgb MCV Plt Count Neutrophils # Neutrophils # (Manual) Lymphocytes # (Manual) Metamyelocytes # (Man) PT 20.2 H INR 2.1 H APTT 43.1 H ABG pH ABG pCO2 ABG pO2 ABG HCO3 ABG Total CO2 ABG O2 Saturation Sodium 134 L Potassium Chloride Carbon Dioxide Creatinine 1.47 H Glucose 175 H POC Glucose (mg/dL) Plasma Lactic Acid Eduar Calcium 6.5 L Phosphorus Total Bilirubin 2.1 H AST 65 H ALT 71 H Alkaline Phosphatase 215 H Ammonia Troponin I Total Protein 3.7 L Albumin 1.4 L Urine Appearance Cloudy H Urine Blood Urine Bilirubin 1+ H Hyaline Casts Urine Mucus Rare H U Tricyclic Antidepress Detected H 10/16/20 10/16/20 10/16/20 14:50 14:50 20:52 WBC RBC Hgb MCV Plt Count Neutrophils # Neutrophils # (Manual) Lymphocytes # (Manual) Metamyelocytes # (Man) PT INR APTT ABG pH 7.49 H ABG pCO2 ABG pO2 52 L* ABG HCO3 29 H ABG Total CO2 30 H ABG O2 Saturation 83.4 L Sodium Potassium Chloride Carbon Dioxide Creatinine Glucose POC Glucose (mg/dL) Plasma Lactic Acid Eduar Calcium Phosphorus Total Bilirubin AST ALT Alkaline Phosphatase Ammonia 129 H Troponin I 0.069 H* Total Protein Albumin Urine Appearance Urine Blood Urine Bilirubin Hyaline Casts Urine Mucus U Tricyclic Antidepress 10/16/20 10/17/20 10/17/20 21:10 04:23 04:23 WBC RBC Hgb MCV 100.6 H Plt Count Neutrophils # Neutrophils # (Manual) Lymphocytes # (Manual) 0.56 L Metamyelocytes # (Man) PT INR APTT ABG pH ABG pCO2 ABG pO2 ABG HCO3 ABG Total CO2 ABG O2 Saturation Sodium Potassium Chloride 108 H Carbon Dioxide Creatinine 1.83 H Glucose 62 L POC Glucose (mg/dL) Plasma Lactic Acid Eduar Calcium 7.2 L Phosphorus 4.7 H Total Bilirubin 3.1 H AST 62 H ALT 70 H Alkaline Phosphatase 194 H Ammonia Troponin I 0.069 H* Total Protein 3.8 L Albumin 1.4 L Urine Appearance Urine Blood Urine Bilirubin Hyaline Casts Urine Mucus U Tricyclic Antidepress 10/17/20 10/17/20 10/17/20 04:23 04:23 04:23 WBC RBC Hgb MCV Plt Count Neutrophils # Neutrophils # (Manual) Lymphocytes # (Manual) Metamyelocytes # (Man) PT 13.6 H INR 1.3 H APTT 43.9 H ABG pH ABG pCO2 ABG pO2 ABG HCO3 ABG Total CO2 ABG O2 Saturation Sodium Potassium Chloride Carbon Dioxide Creatinine Glucose POC Glucose (mg/dL) Plasma Lactic Acid Eduar 5.0 H* Calcium Phosphorus Total Bilirubin AST ALT Alkaline Phosphatase Ammonia 154 H Troponin I 0.083 H* Total Protein Albumin Urine Appearance Urine Blood Urine Bilirubin Hyaline Casts Urine Mucus U Tricyclic Antidepress 10/17/20 10/17/20 10/17/20 09:05 09:40 11:37 WBC RBC Hgb MCV Plt Count Neutrophils # Neutrophils # (Manual) Lymphocytes # (Manual) Metamyelocytes # (Man) PT INR APTT ABG pH ABG pCO2 ABG pO2 ABG HCO3 ABG Total CO2 ABG O2 Saturation Sodium Potassium Chloride Carbon Dioxide Creatinine Glucose POC Glucose (mg/dL) 43 L Plasma Lactic Acid Eduar 6.2 H* Calcium Phosphorus Total Bilirubin AST ALT Alkaline Phosphatase Ammonia Troponin I Total Protein Albumin Urine Appearance Urine Blood Trace H Urine Bilirubin Hyaline Casts 4 H Urine Mucus Rare H U Tricyclic Antidepress 10/17/20 10/17/20 10/17/20 11:40 11:56 11:57 WBC RBC Hgb MCV Plt Count Neutrophils # Neutrophils # (Manual) Lymphocytes # (Manual) Metamyelocytes # (Man) PT INR APTT ABG pH ABG pCO2 33 L ABG pO2 187 H ABG HCO3 19 L ABG Total CO2 ABG O2 Saturation Sodium Potassium Chloride Carbon Dioxide Creatinine Glucose POC Glucose (mg/dL) 64 L 120 H Plasma Lactic Acid Eduar Calcium Phosphorus Total Bilirubin AST ALT Alkaline Phosphatase Ammonia Troponin I Total Protein Albumin Urine Appearance Urine Blood Urine Bilirubin Hyaline Casts Urine Mucus U Tricyclic Antidepress 10/17/20 10/17/20 10/17/20 12:35 16:55 16:58 WBC RBC Hgb MCV Plt Count Neutrophils # Neutrophils # (Manual) Lymphocytes # (Manual) Metamyelocytes # (Man) PT INR APTT ABG pH ABG pCO2 ABG pO2 ABG HCO3 ABG Total CO2 ABG O2 Saturation Sodium Potassium Chloride Carbon Dioxide Creatinine Glucose POC Glucose (mg/dL) 120 H Plasma Lactic Acid Eduar 7.1 H* 8.4 H* Calcium Phosphorus Total Bilirubin AST ALT Alkaline Phosphatase Ammonia Troponin I Total Protein Albumin Urine Appearance Urine Blood Urine Bilirubin Hyaline Casts Urine Mucus U Tricyclic Antidepress 10/17/20 10/17/20 10/18/20 19:50 22:35 00:09 WBC RBC Hgb MCV Plt Count Neutrophils # Neutrophils # (Manual) Lymphocytes # (Manual) Metamyelocytes # (Man) PT INR APTT ABG pH ABG pCO2 ABG pO2 ABG HCO3 ABG Total CO2 ABG O2 Saturation Sodium Potassium Chloride Carbon Dioxide Creatinine Glucose POC Glucose (mg/dL) 101 H Plasma Lactic Acid Eduar 8.9 H* 8.7 H* Calcium Phosphorus Total Bilirubin AST ALT Alkaline Phosphatase Ammonia Troponin I Total Protein Albumin Urine Appearance Urine Blood Urine Bilirubin Hyaline Casts Urine Mucus U Tricyclic Antidepress 10/18/20 10/18/20 10/18/20 02:00 04:20 04:20 WBC 23.5 H RBC 3.36 L Hgb 11.3 L MCV 102.8 H Plt Count Neutrophils # Neutrophils # (Manual) 22.00 H Lymphocytes # (Manual) 0.71 L Metamyelocytes # (Man) 0.47 H PT INR APTT ABG pH ABG pCO2 ABG pO2 ABG HCO3 ABG Total CO2 ABG O2 Saturation Sodium Potassium 3.3 L Chloride 115 H Carbon Dioxide 18 L Creatinine 1.37 H Glucose 150 H POC Glucose (mg/dL) Plasma Lactic Acid Eduar 7.8 H* Calcium 6.5 L Phosphorus Total Bilirubin 3.6 H AST 71 H ALT 59 H Alkaline Phosphatase Ammonia Troponin I Total Protein 3.3 L Albumin 1.2 L Urine Appearance Urine Blood Urine Bilirubin Hyaline Casts Urine Mucus U Tricyclic Antidepress 10/18/20 10/18/20 10/18/20 04:20 04:20 04:47 WBC RBC Hgb MCV Plt Count Neutrophils # Neutrophils # (Manual) Lymphocytes # (Manual) Metamyelocytes # (Man) PT 19.8 H INR 2.0 H APTT ABG pH ABG pCO2 29 L ABG pO2 ABG HCO3 18 L ABG Total CO2 ABG O2 Saturation Sodium Potassium Chloride Carbon Dioxide Creatinine Glucose POC Glucose (mg/dL) Plasma Lactic Acid Eduar Calcium Phosphorus Total Bilirubin AST ALT Alkaline Phosphatase Ammonia 108 H Troponin I Total Protein Albumin Urine Appearance Urine Blood Urine Bilirubin Hyaline Casts Urine Mucus U Tricyclic Antidepress 10/18/20 10/18/20 10/18/20 06:40 06:41 09:30 WBC RBC Hgb MCV Plt Count Neutrophils # Neutrophils # (Manual) Lymphocytes # (Manual) Metamyelocytes # (Man) PT INR APTT ABG pH ABG pCO2 ABG pO2 ABG HCO3 ABG Total CO2 ABG O2 Saturation Sodium Potassium Chloride Carbon Dioxide Creatinine Glucose POC Glucose (mg/dL) 164 H Plasma Lactic Acid Eduar 6.2 H* 5.2 H* Calcium Phosphorus Total Bilirubin AST ALT Alkaline Phosphatase Ammonia Troponin I Total Protein Albumin Urine Appearance Urine Blood Urine Bilirubin Hyaline Casts Urine Mucus U Tricyclic Antidepress 10/18/20 10/18/20 10/18/20 09:33 11:39 14:38 WBC RBC Hgb MCV Plt Count Neutrophils # Neutrophils # (Manual) Lymphocytes # (Manual) Metamyelocytes # (Man) PT INR APTT ABG pH ABG pCO2 ABG pO2 ABG HCO3 ABG Total CO2 ABG O2 Saturation Sodium Potassium Chloride Carbon Dioxide Creatinine Glucose POC Glucose (mg/dL) 175 H 172 H Plasma Lactic Acid Eduar 3.5 H* Calcium Phosphorus Total Bilirubin AST ALT Alkaline Phosphatase Ammonia Troponin I Total Protein Albumin Urine Appearance Urine Blood Urine Bilirubin Hyaline Casts Urine Mucus U Tricyclic Antidepress Assessment and Plan Assessment: * Altered mental status, most likely related to hepatic encephalopathy. * Seizure disorder, abnormal EEG, possible hepatic encephalopathy, rule out nonconvulsive status. * Hepatic cirrhosis * Coagulopathy * Acute hypoxic respiratory failure, on mechanical ventilation. * Chronic anxiety depression. Plan: * Patient underwent EEG, which was abnormal, with evidence of hepatic encephalopathy as well as epileptiform activity. Patient is already on Keppra with mid-therapeutic level. We will further increase dose of Keppra to 1000 mg twice a day. * Patient home medication list states Klonopin 1 mg 3 times a day, but her urine drug screen is negative, and patient currently not on benzodiazepine. Uncertain if epileptiform activity may be related to benzo withdrawal. Ativan could be considered, but can make hepatic encephalopathy further worse. Discussed with Dr. Lomas, and will hold off on Ativan for now. Repeat EEG in a.m. * Medical management as per IM/critical care.
--- NOTE | 2020-10-18 20:40 | P.PN ---
Progress Note - Text Progress Note Date: 10/18/20 Chief Complaint: Unresponsive History of presenting complaint: This is a 60-year-old patient came to the ER as she was unresponsive. 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 As per the EMS and ER physician: The previous night the patient was fine and this morning the woke up she was unresponsive for at least 6 hours and then he decided to call the ambulance up to 6 hours. Patient not able to walk to respond but able to respond to touch. And sometimes she would groan. Ammonia level in the ER was 129. Computed tomography scan of the brain was unremarkable. NG tube was placed. Started on lactulose. Patient then became hypoxic overnight. She was put on 100% nonrebreather facemask. And finally had to be intubated. Admitted with-episode of unresponsiveness, high ammonia levels, acute hypoxic respiratory failure requiring ventilator support, severe protein calorie malnutrition, severe thrombocytopenia, along pro time, acute kidney injury likely ATN, hypotensive shock requiring norepinephrine. Had a left-sided pneumothorax following line placement, on Thora-vent Today-ICU: Ventilator with FiO2 40 and a PEEP of 5. Drips include norepinephrine. Telemetry shows sinus rhythm. Patient sedated. Remains on Thora-vent to suction Review of systems: Cannot be done patient is intubated Active Medications Chlorhexidine Gluconate (Chlorhexidine Gluconate 15 Ml Cup) 15 ml MUCOUS MEM BID [facility] Last Admin: 10/18/20 09:03 Dose: 15 ml Documented by: Piperacillin Sod/Tazobactam (Sod 3.375 gm/ Sodium Chloride) 100 mls @ 25 mls/hr IVPB Q12HR [facility] Last Admin: 10/18/20 09:03 Dose: 25 mls/hr Documented by: Norepinephrine Bitartrate 4 mg (/ Sodium Chloride) 254 mls @ 11.579 mls/hr IV .[id number] [facility]; Protocol Last Titration: 10/18/20 18:13 Dose: 0.02 mcg/kg/min, 4.632 mls/hr Documented by: Propofol 500 mg/ IV Solution 50 mls @ 0 mls/hr IV .Q0M [facility]; Protocol Last Titration: 10/18/20 04:41 Dose: Infused Documented by: Sodium Chloride (Saline 0.9%) 1,000 mls @ 100 mls/hr IV .Q10H [facility] Last Admin: 10/18/20 12:19 Dose: 100 mls/hr Documented by: Potassium Chloride 20 meq/ IV (Solution) 100 mls @ 50 mls/hr IVPB Q2H [facility]; Protocol Stop: 10/18/20 20:59 Last Admin: 10/18/20 19:09 Dose: 50 mls/hr Documented by: Levetiracetam 1,000 mg/ IV (Solution) 100 mls @ 400 mls/hr IVPB Q12HR [facility] Insulin Aspart (Insulin Aspart (Novolog) 100 Unit/Ml Vial) 0 unit SQ Q6HR [facility]; Protocol Last Admin: 10/18/20 17:10 Dose: Not Given Documented by: Lactulose (Lactulose 20 Gm/30 Ml Cup) 30 gm PO QID [facility] Last Admin: 10/18/20 17:13 Dose: 30 gm Documented by: Miscellaneous Information (Magnesium Replacement Protocol 1 Each Misc) 1 each MISCELLANE DAILY PRN; Protocol PRN Reason: Per Protocol Naloxone HCl (Naloxone 0.4 Mg/Ml 1 Ml Vial) 0.2 mg IV Q2M PRN PRN Reason: Opioid Reversal Pantoprazole Sodium (Pantoprazole 40 Mg/10 Ml Vial) 40 mg IV DAILY [facility] Last Admin: 10/18/20 09:07 Dose: 40 mg Documented by: Rifaximin (Rifaximin 550 Mg Tablet) 550 mg NG-TUBE BID [facility] Stop: 11/16/20 09:01 Last Admin: 10/18/20 12:36 Dose: 550 mg Documented by: Past medical history to include: Memory impairment, osteoporosis, seizure disorder, Annamaria-Stoll syndrome status post resection of partial gastrectomy and head of the pancreas, history of anxiety depression, Social history: Lives with her Family history: Patient cannot tell intubated. Physical examination: VITAL SIGNS: 97.6, 67, 28, 102/53, 99% on the ventilator GENERAL: BMI 23.8, diffuse wasting of muscles including the temples. EYES: Pupils equal. Conjunctiva normal. HEENT: External appearance of nose and ears normal, oral cavity dry. Endotracheal tube. NECK: JVD unable to assess; masses not palpable. HEART: First and second heart sounds are normal; no edema. LUNGS: Respiratory rate normal; decreased breath sounds. ABDOMEN: Soft, nontender, liver spleen not palpable, no masses palpable. PSYCH: Patient sedated. NEUROLOGICAL: Cranial nerves grossly intact; no facial asymmetry, sedated. Slight gag reflex. No corneal reflex. Negative doll's eye movement. INVESTIGATIONS, reviewed in the clinical context: October 18: White count 23.5 hemoglobin 11.3 pro time 19.8 potassium 3.3 creatinine 1.37 ammonia 108 albumin 1.2 Is getting chest abdomen pelvis-large partially imaged left-sided pneumothorax, infrahilar and basilar infiltrates, hepatomegaly, anasarca EEG-showing evidence of generalized cerebral dysfunction. No seizure activity recorded. White count 7 hemoglobin 13.2 platelets 217 potassium 3.9 creatinine 1.83 lactic acid 5 AST 62 ALT 70, albumin 1.4 Acute hepatitis screen for A, B, and C nonreactive UA showing trace blood, Liver ultrasound-markedly abnormal appearance of the liver which is heterogenous and hyperattenuating most likely fatty infiltration/diffuse or parasellar disease. 2-D echocardiogram-a 50-45% Admission testing: White count 13 hemoglobin 12.1 platelets 55 pro time 20.2 potassium 4.4 creatinine 1.47 ammonia 129 AST 65 ALT 71 albumin 1.4 Urine drug screen positive for-try cyclic antidepressants Coronavirus [PCR]-not detected Chest x-ray film-patchy right basilar atelectasis. Some left basilar infiltrate. Computed tomography scan brain-some chronic changes EKG tracing personally reviewed by me-normal sinus rhythm, nonspecific ST/T-wave changes Assessment and plan: -This is a patient who was found to be unresponsive at home and was so for at least 6 hours before called the EMS. Ammonia level was found to be high. 129. NG tube was placed on lactulose. Probable hepatic encephalopathy.on xifaxin -Suspect anoxic brain injury. Follow with neurology -Acute hypoxic respiratory failure requiring ventilator support-slow to respond -Primary osteoarthritis -History of Annamaria-Stoll syndrome status post resection of the head of the pancreas and partial gastrectomy -Severe protein calorie malnutrition-patient is diffuse wasting of muscles loss of subcutaneous fat low albumin -Significant thrombocytopenia cause unknown -Prolonged pro time. Could be from vitamin K deficiency from liver disease and poor oral intake -Acute kidney injury, could be ATN. Given patient's low muscle mass this is a rather significant elevation in creatinine. Renal ultrasound. Dyazide discontinued -Epilepsy disorder continue with Keppra -Hypotensive shock - epinephrine, slow to respond -Large left-sided pneumothorax iatrogenic from line placement, on Thora-vent -Full code
[2020-10-18] MEDS: levETIRAcetam IV 1,000 MG in SALINE 1 100ML.BAG IVPB SCH (21:25)
[2020-10-18 23:56] LABS: Glucose,Whole Blood 95 mg/dL (75-99)
[2020-10-19 00:47] LABS: Protein, Total 2.9 g/dL (6.2-8.2)
[2020-10-19] MEDS: INSULIN ASPART (NovoLOG) 100 UNIT/ML VIAL SQ SCH ×4 (01:10→18:29)
[2020-10-19 04:21] LABS: Alpha Fetoprotein, Tumor Mkr <2.5 ng/mL (0.0-7.9)
[2020-10-19 05:20] LABS: ABG Base Excess 0.4 mmol/L; ABG HCO3 24 mmol/L (21-25); ABG Oxygen Saturation 92.3 % (94-97); ABG PCO2 30 mmHg (35-45); ABG PO2 71 mmHg (83-108); ABG TCO2 24 mmol/L (19-24); Allen Test Performed? Yes
[2020-10-19 06:20] LABS: Glucose,Whole Blood 101 mg/dL (75-99)
[2020-10-19 06:47] LABS: Albumin 1.3 g/dL (3.5-5.0); Calcium 7.2 mg/dL (8.4-10.2); Potassium 3.5 mmol/L (3.5-5.1); Total Bilirubin 4.2 mg/dL (0.2-1.3); Total Protein 3.5 g/dL (6.3-8.2)
[2020-10-19 07:04] LABS: HCT 37.5 % (34.0-46.0); HGB 11.7 gm/dL (11.4-16.0); MCH 31.4 pg (25.0-35.0); MCHC 31.3 g/dL (31.0-37.0); MCV 100.4 fL (80.0-100.0); Mean Platelet Volume 11.3; Platelet Count 126 k/uL (150-450); RBC 3.74 m/uL (3.80-5.40); RDW 13.1 % (11.5-15.5); WBC 23.3 k/uL (3.8-10.6)
[2020-10-19 07:27] LABS: Band Neutrophils % 7 %; Eosinophils # (M) 0.23 k/uL (0-0.7); Lymphocytes # (M) 1.63 k/uL (1.0-4.8); Monocytes # (M) 0.47 k/uL (0-1.0); Neutrophils % (M) 85 %; Nucleated Red Blood Cells 0 /100 WBC (0-0); Total Cells Counted 200
[2020-10-19] MEDS ORDERED: Potassium Replacement Protocol 1 EACH MISC MISCELLANE PRN (07:44)
[2020-10-19] MEDS: SODIUM CHLORIDE 0.9% 1,000 ML IV SCH ×3 (07:56→23:57)
[2020-10-19] MEDS: POTASSIUM CHLORIDE 20 MEQ in WATER FOR INJECTION 1 100ML.BAG IVPB SCH ×2 (07:56→10:10)
[2020-10-19] MEDS: LACTULOSE 20 GM/30 ML CUP PO SCH (07:58)
[2020-10-19] MEDS: RIFAXIMIN 550 MG TABLET NG-TUBE SCH ×2 (07:59→22:26)
[2020-10-19] MEDS: CHLORHEXIDINE GLUCONATE 15 ML CUP MUCOUS MEM SCH ×2 (07:59→20:27)
[2020-10-19] MEDS: levETIRAcetam IV 1,000 MG in SALINE 1 100ML.BAG IVPB SCH ×2 (07:59→20:27)
[2020-10-19] MEDS: PANTOPRAZOLE 40 MG/10 ML VIAL IV SCH (07:59)
[2020-10-19] MEDS: PIPERACILLIN-TAZOBACTAM 3.375 GM in SODIUM CHLORIDE 0.9% 100 ML IVPB SCH ×2 (07:59→16:55)
--- NOTE | 2020-10-19 09:27 | XR ---
EXAMINATION TYPE: XR chest 1V portable DATE OF EXAM: 10/19/2020 COMPARISON: 10/18/2020 HISTORY: Tube placement TECHNIQUE: Single frontal view of the chest is obtained. FINDINGS: ET tube approximately 1 cm above alvin. NG tube is seen with the sidehole appears at the level of the distal esophagus and could be advanced. Left-sided chest tube is seen and there is a sma ll left apical pneumothorax measuring 5-10%. Subcutaneous emphysema noted. A left-sided consolidation and pleural effusion. Patient is rotated and there is a scoliotic curvature of the spine. Remote tra sondra left clavicle. IMPRESSION: 1. Stable left lower lobe infiltrate and small effusion with approximate 10% left-sided pneumothorax.
--- NOTE | 2020-10-19 10:08 | P.PN ---
Subjective Progress Note Date: 10/19/20 This is a 60-year-old female presents emergency Department because she has been unresponsive. 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 History is from EMS and the ED physcian who attended on the patient. They stated that last night the patient was fine and this morning when woke up she has been unresponsive for the last 6 hours and he decided to call the ambulance after 6 hours. According to the the patient is not been able to verbally respond were but only will respond to some tactile stimulation and she would only responded with a groan hormone. There's been no history of any recent fevers. No reported seizure activity. The blood work showed a normal white cell count of 13.0. Hemoglobin was at 12.1. Platelet count was low at 55. The patient is coagulopathic with a PT of 20, INR of 2.1 and a PTT of 43.1. Her BUN was 40 with a creatinine of 1.47. Sodium is at 134. LFTs were abnormal with an SGOT of 65, SGPT of 71 with an alkaline phosphatase of 215. Bilirubin was 2.1 with a calcium level of 6.5. The patient's ammonia level was elevated at 129. Albumin was 1.4. Troponin was 0.06. UA was positive for bilirubin otherwise negative. Urine drug screen was positive for phenylcyclidine. The COVID 19 testing was negative. Computed tomography scan of the brain showed no acute secondary process. There was mild diffuse atrophy with chronic small vessel change. The chest x-ray shows no acute abnormalities. No pleural effusion. NG tube was placed and that he was in a good location d istal portion being in the distal esophagus. The patient was started on lactulose. For now, the patient is severely normal sed rate of 100 mL an hour normal saline and the patient is also on lactulose 30 g 4 times a day. Overnight, the patient became progressively more hypoxic. The patient dropped her pulse ox down to the 80s. She has been placed on on the percent nonrebreather facemask. Ultimately because of ongoing hypoxemia and altered mentation, the patient had to be intubated and placed on a mechanical ventilator. At this point in time, I will the patient is on a assist-control 28 with a tidal volume of 400 and FiO2 of 100% with a PEEP of 5. Most recent blood gas showed a pH of 7.41 with a pCO2 of 34 and pO2 of 101. The patient was not having any good IV access. Emergency physician was contacted and they subclavian triple-lumen catheter was inserted and this line insertion. Further by an Iatrogenic Pneumothorax on the Left. Based on That, a Fluoroscopy Vent Was Inserted and There Was Reexpansion of the Left Lung. There Is Some Intermittent Air Leak Still Present on Continuous Wall Suction. The Chest X-Ray Otherwise Showed Reexpansion of the Left Lung. ET Tube Is in a Good Location. No Significant Fluid Output from the the Flovent. Left hemidiaphragm is eleva verónica. There is some atelectatic changes and left lung base. Some infiltration in the right lower lobe also present. The patient overnight was covered with IV Zosyn. NG tube still in place. The patient is receiving lactulose. Bowel movement activities in order of very small BM that occurred yesterday. Urine output is 50 mL the entire night. The patient received a total of 4.5 L total fluids and currently she is on a maintenance of 100 mL an hour. She is also sedated with propofol at 40 mcg/kg per minute. The most recent blood work from this morning shows a hemoglobin of 13.2, coagulation profile is slightly improved compared to yesterday with a PT of 13.6 and INR of 1.3 with a PTT of 43 and there is an acute kidney injury with a BUN of 15 and a creatinine of 1.8 and the lactic acid level is at 5.0. LFTs remain abnormal with SGPT of 194, SGPT of 154 and troponins are still leaking at 0.08. Albumin is at 1.4 and adjusted calcium level is within normal limits. 10/18/2020 the patient is intubated on a mechanical ventilator, currently on assist control mode at the rate of 28 with a tidal volume of 400 FiO2 of 40% with a PEEP of 5. The patient has no significant orotracheal secretions. There is a fluoroscopy vent in the left chest and today's chest x-ray shows no evidence of any pneumothorax. ET tube is about 1 cm above the alvin. There is ongoing air leak thoavent. Total amount of output from output has been in the order of 300 mL since inserted. She remains sedated and the patient was on propofol for sedation and a sedation was stopped 5:00 this morning to reevaluate her mental status. She is still receiving lactulose and had a ammonia level is on the decline. Hemodynamically, the patient remains on pressors. Overnight she received an additional 2 L of IV fluids. Her CVP is running around 10 and the patient remains on norepinephrine infusion at 0.06 mcg/kg per minute. She is in a positive fluid balance. Her white cell count is up to 23.5. Hemoglobin is 11.3. INR is at 2.0 with a PT of 19.8. The patient's renal function is stable with a creatinine of 1.3. Lactic acidosis and the decline as the lactic acid level peaked at 8.7 and currently is down to 6.2 ultrasound the liver shows marked abnormalities in the liver with heterogeneous appearance most likely on the basis of fatty infiltration or diffuse hepatocellular disease. Irregular density was also seen near the cameron hepatis for which a CAT scan of the abdomen she is currently on D5 0.5 today to 100 mL an hour. She is on IV Keppra, IV Zosyn, lactulose 4 times a day, and all of the cultures are negative for now. 10/19/2020 the patient remains intubated on a mechanical ventilator. Clinically however, she is much more awake and she is following some simple commands. She is extremely weak. She can barely squeeze my fingers upon demand. She has no strong cough or gag at this point in time and she remains intubated on a mechanical ventilator. She is still receiving lactulose 30 g every 4 hours and the patient is producing diarrhea and frequent bowel movements. Ammonia level today is down to 106. The patient is also on the facet regarding her hepatic encephalopathy. In terms of her liver function tests, AST is down to 49, ALT is down to 57, bilirubin is at 4.2, alkaline phosphatase is 109. Her alpha- fetoprotein level was negative. CAT scan of the abdomen and the liver was done today and he did not show any hepatic mass. There was a pneumothorax as expect ed on the left side and the Thoravent is in a good location. There is also some infrahilar and basilar pulmonary infiltrates in addition to ascites. There is hepatomegaly and fatty infiltration of the liver. The patient remains intubated on a mechanical ventilator. She is an assist-control mode at a rate of 28 with a tidal volume of 400 and FiO2 of 40% with a PEEP of 5. The blood gases from t [place] shows some respiratory alkalosis with a pH of 7.5 and a pCO2 of 30 and pO2 of 71. Creatinine is at 1.2. BUN of 14. EEG from yesterday shows some triphasic waves. Seizure could not be completely ruled out. The dose was increased by neurology. A repeat EEG is in progress today. The patient remains nothing by mouth for now. She is on IV Protonix. E. coli was cultured in the sputum and the patient is currently on IV Zosyn. The patient has ongoing air leak and the chest tube and the chest x-ray from today showing small left apical pneumothorax. ET tube is in a good location. She is quite debilitated and emaciated on exam. Objective - Vital Signs Vital signs: Vital Signs Temp 97.6 F 10/19/20 08:00 Pulse 97 10/19/20 09:00 Resp 28 H 10/19/20 09:00 BP 93/67 10/19/20 04:00 Pulse Ox 92 L 10/19/20 09:00 Intake & Output 10/18/20 10/19/20 10/19/20 18:59 06:59 18:59 Intake Total 2683.257 300 600 Output Total 725 565 95 Balance 1958.257 -265 505 Weight 68.3 kg 71.6 kg Intake: IV 100 200 200 Piperacillin-Tazobactam 3 100 100 .375 gm In Sodium Chloride 0.9% 100 ml @ 25 mls/hr IVPB Q12HR [facility] Rx #:[id number] levETIRAcetam IV 750 mg 100 100 100 In Sodium Chloride 0.9% 100 ml @ 400 mls/hr IVPB Q12HR [facility] Rx#:[id number] Intake, IV Titration 2583.257 100 400 Amount Dextrose 5%-0.9% NaCl 1, 400 000 ml @ 100 mls/hr IV . Q10H [facility] Rx#:[id number] Magnesium Sulfate-D5w Pmx 100 1 gm In Dextrose/Water 1 100ml.bag @ 100 mls/hr IVPB Q1H [facility] Rx#: [id number] Norepinephrine 4 mg In 183.257 Sodium Chloride 0.9% 250 ml @ 0.05 MCG/KG/MIN 11. 579 mls/hr IV .[id number] [facility] Rx#:[id number] Piperacillin-Tazobactam 3 100 100 .375 gm In Sodium Chloride 0.9% 100 ml @ 25 mls/hr IVPB Q12HR [facility] Rx #:[id number] Potassium Chloride 20 meq 100 In Water For Injection 1 100ml.bag @ 50 mls/hr IVPB Q2H [facility] Rx#: [id number] Potassium Chloride 20 meq 100 In Water For Injection 1 100ml.bag @ 50 mls/hr IVPB Q2H [facility] Rx#: [id number] Sodium Chloride 0.9% 1, 700 100 200 000 ml @ 100 mls/hr IV . Q10H [facility] Rx#:[id number] Sodium Chloride 0.9% 1, 1000 000 ml @ 999 mls/hr IV . Q1H1M [facility] Rx#:[id number] Output: Chest Tube Drainage 100 Thora-Vent Left Upper 100 Anterior Chest Urine 625 565 95 Other: Voiding Method Indwelling Catheter Indwelling Catheter Indwelling Catheter ABP, PAP, CO, CI - Last Documented Arterial Blood Pressure 124/66 - Exam The patient appeared unresponsive the patient currently off propofol and the patient has orogastric and NG tube is also in place. She is quite symptoms with the mechanical ventilator at this point in time. She looks quite cachectic and emaciated with temporal wasting.. Vital signs as documented. Head exam is unremarkable. No scleral icterus or corneal arcus noted. Neck is without jugular venous distension, thyromegaly, or carotid bruits. Carotid upstrokes are brisk bilaterally. Lungs are clear to auscultation and percussion. The patient has a vent inserted over the left anterior chest area. Cardiac exam reveals the PMI to be normally sized and situated. Rhythm is regular. First and second heart sounds normal. No murmurs, rubs or gallops. Abdominal exam reveals normal bowel sounds, no masses, no organomegaly and no aortic enlargement. The patient's abdomen overall is soft. There is no ascites. There is a large anterior abdominal wall scar related to a previous massive abdominal surgery. Extremities are nonedematous and both femoral and pedal pulses are markedly diminished in the upper extremity. Diminished pulses in lower extremity and ext remities are cold. Femoral pulses are present. Pedal pulses are extremely weak and thready. .Examination of the skin revealed no evidence of significant rashes, suspicious appearing nevi or other concerning lesions. Neurologically the patient is currently sedated, unresponsive, not responsive to painful stimulation. Does not respond to verbal stimulation. No facial asymmetry. Pupils around 4-5 mm in size, sluggishly reactive to light and there is no nystagmus and there is no clonus at this point in time. No seizure activity has been noted. - Labs CBC & Chem 7: 10/19/20 05:00 10/19/20 05:00 Labs: Abnormal Lab Results - Last 24 Hours (Table) 10/18/20 10/18/20 10/18/20 Range/Units 09:30 11:39 14:38 WBC (3.8-10.6) k/uL RBC (3.80-5.40) m/uL MCV (80.0-100.0) fL Plt Count (150-450) k/uL Neutrophils # (Manual) (1.3-7.7) k/uL ABG pH (7.35-7.45) ABG pCO2 (35-45) mmHg ABG pO2 (83-108) mmHg ABG O2 Saturation (94-97) % Potassium (3.5-5.1) mmol/L Chloride (98-107) mmol/L Creatinine (0.52-1.04) mg/dL Glucose (74-99) mg/dL POC Glucose (mg/dL) 172 H (75-99) mg/dL Plasma Lactic Acid Eduar 5.2 H* 3.5 H* (0.7-2.0) mmol/L Calcium (8.4-10.2) mg/dL Total Bilirubin (0.2-1.3) mg/dL AST (14-36) U/L ALT (4-34) U/L Ammonia (<30) umol/L Total Protein (6.3-8.2) g/dL Total Protein (PEP) (6.2-8.2) g/dL Albumin (3.5-5.0) g/dL 10/18/20 10/18/20 10/18/20 Range/Units 15:47 17:02 17:44 WBC (3.8-10.6) k/uL RBC (3.80-5.40) m/uL MCV (80.0-100.0) fL Plt Count (150-450) k/uL Neutrophils # (Manual) (1.3-7.7) k/uL ABG pH (7.35-7.45) ABG pCO2 (35-45) mmHg ABG pO2 (83-108) mmHg ABG O2 Saturation (94-97) % Potassium 3.2 L (3.5-5.1) mmol/L Chloride (98-107) mmol/L Creatinine (0.52-1.04) mg/dL Glucose (74-99) mg/dL POC Glucose (mg/dL) 117 H (75-99) mg/dL Plasma Lactic Acid Eduar (0.7-2.0) mmol/L Calcium (8.4-10.2) mg/dL Total Bilirubin (0.2-1.3) mg/dL AST (14-36) U/L ALT (4-34) U/L Ammonia (<30) umol/L Total Protein (6.3-8.2) g/dL Total Protein (PEP) 2.9 L (6.2-8.2) g/dL Albumin (3.5-5.0) g/dL 10/18/20 10/19/20 10/19/20 Range/Units 17:44 05:00 05:00 WBC 23.3 H (3.8-10.6) k/uL RBC 3.74 L (3.80-5.40) m/uL MCV 100.4 H (80.0-100.0) fL Plt Count 126 L (150-450) k/uL Neutrophils # (Manual) 21.40 H (1.3-7.7) k/uL ABG pH (7.35-7.45) ABG pCO2 (35-45) mmHg ABG pO2 (83-108) mmHg ABG O2 Saturation (94-97) % Potassium (3.5-5.1) mmol/L Chloride (98-107) mmol/L Creatinine (0.52-1.04) mg/dL Glucose (74-99) mg/dL POC Glucose (mg/dL) (75-99) mg/dL Plasma Lactic Acid Eduar 3.0 H* (0.7-2.0) mmol/L Calcium (8.4-10.2) mg/dL Total Bilirubin (0.2-1.3) mg/dL AST (14-36) U/L ALT (4-34) U/L Ammonia 106 H (<30) umol/L Total Protein (6.3-8.2) g/dL Total Protein (PEP) (6.2-8.2) g/dL Albumin (3.5-5.0) g/dL 10/19/20 10/19/20 10/19/20 Range/Units 05:00 05:20 06:19 WBC (3.8-10.6) k/uL RBC (3.80-5.40) m/uL MCV (80.0-100.0) fL Plt Count (150-450) k/uL Neutrophils # (Manual) (1.3-7.7) k/uL ABG pH 7.50 H (7.35-7.45) ABG pCO2 30 L (35-45) mmHg ABG pO2 71 L (83-108) mmHg ABG O2 Saturation 92.3 L (94-97) % Potassium (3.5-5.1) mmol/L Chloride 116 H (98-107) mmol/L Creatinine 1.22 H (0.52-1.04) mg/dL Glucose 113 H (74-99) mg/dL POC Glucose (mg/dL) 101 H (75-99) mg/dL Plasma Lactic Acid Eduar (0.7-2.0) mmol/L Calcium 7.2 L (8.4-10.2) mg/dL Total Bilirubin 4.2 H (0.2-1.3) mg/dL AST 49 H (14-36) U/L ALT 57 H (4-34) U/L Ammonia (<30) umol/L Total Protein 3.5 L (6.3-8.2) g/dL Total Protein (PEP) (6.2-8.2) g/dL Albumin 1.3 L (3.5-5.0) g/dL Microbiology - Last 24 Hours (Table) 10/17/20 07:35 Gram Stain - Preliminary Sputum Sputum Culture - Preliminary Escherichia coli Assessment and Plan Plan: 1 altered mental status most likely secondary to Hepatic encephalopathy/metabolic encephalopathy , the patient presented with signs of liver failure as the patient presents with coagulopathy, elevated ammonia level, thrombocytopenia, abnormal LFTs. CAT scan of the brain showing no acute abnorma lities other than cerebral atrophy. The lactulose is dropped down to 100 and the patient is having diarrhea. We will mentation is gradually improving and the patient would have her lactulose dose reduced. 2 liver cirrhosis, suspected clinically and based on blood work 3 abnormal LFTs, ultrasound the liver showed an echoic density in the cameron hepatis. Nevertheless, the CAT scan of the abdomen showed some ascites without evidence of any hepatic masses and there is no indication of intra-abdominal or pancreatic or liver mass at this point in time. 4 coagulopathy, thrombocytopenia, secondary to above 5 Acute hypoxic respiratory failure , currently intubated on a mechanical ventilator. Chest x-ray was noted. Vent setting was noted. Blood gases was noted. The patient continues to have any iatrogenic left-sided pneumothorax. Thoravent is in place. There is ongoing air leak. 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 Iatrogenic left-sided pneumothorax and the patient has a thoravent in place with intermittent air leak. 12 hypotension, recovered 13 acute kidney injury with oligoria, secondary to above Plan Continue lactulose added years ago still 30 g once a day and monitor ammonia level, and dietary will be consulted for enteral feeding Reduced the respiratory rate down to 14 and keep the patient on mechanical ventilator. No plans for extubation for now. I would like her to be much more awake and alert with better respiratory and coughing reflexes to ensure a successful extubation. Meanwhile, were debating whether the chest tube will be needed regarding the left-sided pneumothorax. Ideally a chest tube is needed in somebody on a mechanical ventilator. Nevertheless, the pneumothorax is small and this Thoravent that we have is still showing air leaks and is not affecting his hemodynamics. Based on that, I kept a Thoravent in place. The follow-up CAT scan of the abdomen showed no evidence of any liver or intra- abdominal masses Check a pro-calcitonin level is pending. She had E. coli in the sputum and the patient is currently on IV Zosyn Continue empiric antibiotic coverage with IV Zosyn Monitor the white cell count, 23, essentially stable compared to yesterday The acid level is normalized at 1.2. She is on IV fluids at 100 mL an hour. Proceed with EEG today Edward was adjusted and the patient is taking Keppra 1000 mg twice a day and neurologist on the case Condition remains critical and will continue to follow make further recommendations based on her progress. This evaluation was done more than 30 minutes. Time with Patient: Greater than 30
[2020-10-19 10:17] VITALS: BMI 27.1
[2020-10-19] MEDS ORDERED: PHENYTOIN SODIUM INJ 1,000 MG in SODIUM CHLORIDE 0.9% 100 ML IVPB STA (11:47)
[2020-10-19 13:32] LABS: Glucose,Whole Blood 122 mg/dL (75-99)
[2020-10-19 14:44] LABS: Ceruloplasmin 23.6 mg/dL (20.0-60.0)
[2020-10-19 15:06] LABS: Albumin 1.02 g/dL (3.80-4.90); Gamma Globulin 0.81 g/dL (0.70-1.50)
--- NOTE | 2020-10-19 15:07 | P.PN ---
Subjective Progress Note Date: 10/19/20 Patient was seen for follow-up. Patient is intubated. Not on any sedation. Patient minimally more responsive to slightly open her eyes to calling her name. 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 Patient only 1 time slightly turned her head to calling her name. Otherwise not much response. Still appears with bitemporal wasting. Significant peripheral edema noted in the arms and legs. Objective - Vital Signs Vital signs: Vital Signs Temp 97.3 F L 10/19/20 12:00 Pulse 82 10/19/20 14:00 Resp 21 10/19/20 14:00 BP 93/67 10/19/20 04:00 Pulse Ox 96 10/19/20 14:00 Intake & Output 10/18/20 10/19/20 10/19/20 18:59 06:59 18:59 Intake Total 2683.102 520 8496 Output Total 725 565 245 Balance 1958.257 -265 1055 Weight 68.3 kg 71.6 kg 71.6 kg Intake: IV 100 200 200 Piperacillin-Tazobactam 3 100 100 .375 gm In Sodium Chloride 0.9% 100 ml @ 25 mls/hr IVPB Q12HR [facility] Rx #:[id number] levETIRAcetam IV 750 mg 100 100 100 In Sodium Chloride 0.9% 100 ml @ 400 mls/hr IVPB Q12HR [facility] Rx#:[id number] Intake, IV Titration 2583.232 946 6082 Amount Dextrose 5%-0.9% NaCl 1, 400 000 ml @ 100 mls/hr IV . Q10H [facility] Rx#:[id number] Magnesium Sulfate-D5w Pmx 100 1 gm In Dextrose/Water 1 100ml.bag @ 100 mls/hr IVPB Q1H [facility] Rx#: [id number] Norepinephrine 4 mg In 183.257 Sodium Chloride 0.9% 250 ml @ 0.05 MCG/KG/MIN 11. 579 mls/hr IV .[id number] [facility] Rx#:[id number] Phenytoin Sodium Inj 1, 100 000 mg In Sodium Chloride 0.9% 100 ml @ 200 mls/hr IVPB [facility] Rx#: [id number] Piperacillin-Tazobactam 3 100 100 .375 gm In Sodium Chloride 0.9% 100 ml @ 25 mls/hr IVPB Q12HR [facility] Rx #:[id number] Potassium Chloride 20 meq 100 In Water For Injection 1 100ml.bag @ 50 mls/hr IVPB Q2H [facility] Rx#: [id number] Potassium Chloride 20 meq 200 In Water For Injection 1 100ml.bag @ 50 mls/hr IVPB Q2H [facility] Rx#: [id number] Sodium Chloride 0.9% 1, 700 100 700 000 ml @ 100 mls/hr IV . Q10H [facility] Rx#:[id number] Sodium Chloride 0.9% 1, 1000 000 ml @ 999 mls/hr IV . Q1H1M [facility] Rx#:[id number] Output: Chest Tube Drainage 100 Thora-Vent Left Upper 100 Anterior Chest Urine 625 565 245 Other: Voiding Method Indwelling Catheter Indwelling Catheter Indwelling Catheter ABP, PAP, CO, CI - Last Documented Arterial Blood Pressure 120/63 - Labs CBC & Chem 7: 10/19/20 05:00 10/19/20 17:30 Labs: Abnormal Lab Results - Last 24 Hours (Table) 10/18/20 10/18/20 10/18/20 Range/Units 14:38 15:47 17:02 WBC (3.8-10.6) k/uL RBC (3.80-5.40) m/uL MCV (80.0-100.0) fL Plt Count (150-450) k/uL Neutrophils # (Manual) (1.3-7.7) k/uL ABG pH (7.35-7.45) ABG pCO2 (35-45) mmHg ABG pO2 (83-108) mmHg ABG O2 Saturation (94-97) % Potassium 3.2 L (3.5-5.1) mmol/L Chloride (98-107) mmol/L Creatinine (0.52-1.04) mg/dL Glucose (74-99) mg/dL POC Glucose (mg/dL) 117 H (75-99) mg/dL Plasma Lactic Acid Eduar 3.5 H* (0.7-2.0) mmol/L Calcium (8.4-10.2) mg/dL Total Bilirubin (0.2-1.3) mg/dL AST (14-36) U/L ALT (4-34) U/L Ammonia (<30) umol/L Total Protein (6.3-8.2) g/dL Total Protein (PEP) (6.2-8.2) g/dL Albumin (3.5-5.0) g/dL 10/18/20 10/18/20 10/19/20 Range/Units 17:44 17:44 05:00 WBC (3.8-10.6) k/uL RBC (3.80-5.40) m/uL MCV (80.0-100.0) fL Plt Count (150-450) k/uL Neutrophils # (Manual) (1.3-7.7) k/uL ABG pH (7.35-7.45) ABG pCO2 (35-45) mmHg ABG pO2 (83-108) mmHg ABG O2 Saturation (94-97) % Potassium (3.5-5.1) mmol/L Chloride (98-107) mmol/L Creatinine (0.52-1.04) mg/dL Glucose (74-99) mg/dL POC Glucose (mg/dL) (75-99) mg/dL Plasma Lactic Acid Eduar 3.0 H* (0.7-2.0) mmol/L Calcium (8.4-10.2) mg/dL Total Bilirubin (0.2-1.3) mg/dL AST (14-36) U/L ALT (4-34) U/L Ammonia 106 H (<30) umol/L Total Protein (6.3-8.2) g/dL Total Protein (PEP) 2.9 L (6.2-8.2) g/dL Albumin (3.5-5.0) g/dL 10/19/20 10/19/20 10/19/20 Range/Units 05:00 05:00 05:20 WBC 23.3 H (3.8-10.6) k/uL RBC 3.74 L (3.80-5.40) m/uL MCV 100.4 H (80.0-100.0) fL Plt Count 126 L (150-450) k/uL Neutrophils # (Manual) 21.40 H (1.3-7.7) k/uL ABG pH 7.50 H (7.35-7.45) ABG pCO2 30 L (35-45) mmHg ABG pO2 71 L (83-108) mmHg ABG O2 Saturation 92.3 L (94-97) % Potassium (3.5-5.1) mmol/L Chloride 116 H (98-107) mmol/L Creatinine 1.22 H (0.52-1.04) mg/dL Glucose 113 H (74-99) mg/dL POC Glucose (mg/dL) (75-99) mg/dL Plasma Lactic Acid Eduar (0.7-2.0) mmol/L Calcium 7.2 L (8.4-10.2) mg/dL Total Bilirubin 4.2 H (0.2-1.3) mg/dL AST 49 H (14-36) U/L ALT 57 H (4-34) U/L Ammonia (<30) umol/L Total Protein 3.5 L (6.3-8.2) g/dL Total Protein (PEP) (6.2-8.2) g/dL Albumin 1.3 L (3.5-5.0) g/dL 10/19/20 10/19/20 Range/Units 06:19 13:29 WBC (3.8-10.6) k/uL RBC (3.80-5.40) m/uL MCV (80.0-100.0) fL Plt Count (150-450) k/uL Neutrophils # (Manual) (1.3-7.7) k/uL ABG pH (7.35-7.45) ABG pCO2 (35-45) mmHg ABG pO2 (83-108) mmHg ABG O2 Saturation (94-97) % Potassium (3.5-5.1) mmol/L Chloride (98-107) mmol/L Creatinine (0.52-1.04) mg/dL Glucose (74-99) mg/dL POC Glucose (mg/dL) 101 H 122 H (75-99) mg/dL Plasma Lactic Acid Eduar (0.7-2.0) mmol/L Calcium (8.4-10.2) mg/dL Total Bilirubin (0.2-1.3) mg/dL AST (14-36) U/L ALT (4-34) U/L Ammonia (<30) umol/L Total Protein (6.3-8.2) g/dL Total Protein (PEP) (6.2-8.2) g/dL Albumin (3.5-5.0) g/dL Microbiology - Last 24 Hours (Table) 10/17/20 07:35 Gram Stain - Preliminary Sputum Sputum Culture - Preliminary Escherichia coli Assessment and Plan Assessment: * Altered mental status, most likely related to hepatic encephalopathy. Ammonia level continues to be high. * Seizure disorder, abnormal EEG, possible hepatic encephalopathy, possible nonconvulsive status. * Hepatic cirrhosis * Coagulopathy * Acute hypoxic respiratory failure, on mechanical ventilation. * Chronic anxiety depression. Plan: * Patient underwent repeat EEG today. Improvement in the background, with some appearance of 6-7 Hz theta activity, but with intermittent high amplitude bilateral sharply contoured activity, which at times appears triphasic and other times appears epileptiform. Continue Keppra 1000 mg twice a day. Due to persistent electrographic abnormality, will give 1 g of Dilantin 1 dose and recheck EEG in the evening today, to assess for underlying cerebral activity. Discussed with Dr Warren. * Patient home medication list states Klonopin 1 mg 3 times a day, but her urine drug screen is negative, and patient currently not on benzodiazepine. Uncertain if epileptiform activity may be related to benzo withdrawal. Ativan contraindicated due to hepatic encephalopathy. * Medical management as per IM/critical care/GI. * Repeat EEG in the morning. * Dr. Munoz will cover neurology service over the weekend.
--- NOTE | 2020-10-19 15:09 | P.PN ---
Subjective Progress Note Date: 10/19/20 Principal diagnosis: Hepatic encephalopathy Is a 60-year-old female patient who was seen in follow-up in the ICU with multiple medical comorbidities. 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 There were no acute changes through the night. The patient has been weaned from sedation and had been unresponsive all day yesterday. Nursing is reporting patient to be more responsive today with opening eyes and with external rub. Rectal tube is in place with adequate output. No signs of GI bleed. She remains intubated. Tube feeds will be started today. Ammonia level 106, trending down. LFTS stable. Neurology on consult, EEG performed yesterday which was abnormal and reordered for today. Objective - Vital Signs Vital signs: Vital Signs Temp 97.6 F 10/19/20 08:00 Pulse 101 H 10/19/20 10:00 Resp 14 10/19/20 10:00 BP 93/67 10/19/20 04:00 Pulse Ox 93 L 10/19/20 10:00 Intake & Output 10/18/20 10/19/20 10/19/20 18:59 06:59 18:59 Intake Total 2683.257 300 800 Output Total 725 565 125 Balance 1958.257 -265 675 Weight 68.3 kg 71.6 kg 71.6 kg Intake: IV 100 200 200 Piperacillin-Tazobactam 3 100 100 .375 gm In Sodium Chloride 0.9% 100 ml @ 25 mls/hr IVPB Q12HR [facility] Rx #:[id number] levETIRAcetam IV 750 mg 100 100 100 In Sodium Chloride 0.9% 100 ml @ 400 mls/hr IVPB Q12HR [facility] Rx#:[id number] Intake, IV Titration 2583.257 100 600 Amount Dextrose 5%-0.9% NaCl 1, 400 000 ml @ 100 mls/hr IV . Q10H [facility] Rx#:[id number] Magnesium Sulfate-D5w Pmx 100 1 gm In Dextrose/Water 1 100ml.bag @ 100 mls/hr IVPB Q1H [facility] Rx#: [id number] Norepinephrine 4 mg In 183.257 Sodium Chloride 0.9% 250 ml @ 0.05 MCG/KG/MIN 11. 579 mls/hr IV .[id number] [facility] Rx#:[id number] Piperacillin-Tazobactam 3 100 100 .375 gm In Sodium Chloride 0.9% 100 ml @ 25 mls/hr IVPB Q12HR [facility] Rx #:[id number] Potassium Chloride 20 meq 100 In Water For Injection 1 100ml.bag @ 50 mls/hr IVPB Q2H [facility] Rx#: [id number] Potassium Chloride 20 meq 200 In Water For Injection 1 100ml.bag @ 50 mls/hr IVPB Q2H [facility] Rx#: [id number] Sodium Chloride 0.9% 1, 700 100 300 000 ml @ 100 mls/hr IV . Q10H [facility] Rx#:[id number] Sodium Chloride 0.9% 1, 1000 000 ml @ 999 mls/hr IV . Q1H1M [facility] Rx#:[id number] Output: Chest Tube Drainage 100 Thora-Vent Left Upper 100 Anterior Chest Urine 625 565 125 Other: Voiding Method Indwelling Catheter Indwelling Catheter Indwelling Catheter ABP, PAP, CO, CI - Last Documented Arterial Blood Pressure 116/58 - Exam General appearance: Obtunded, nonresponsive on mechanical ventilation. HET: Head is normocephalic and atraumatic. Conjunctiva pink. Sclera anicteric Neck: Supple without lymphadenopathy. Abdomen: Soft, nontender, nondistended with bowel sounds. No guarding or rigidity. Extremities: Normal skin color and turgor. No pedal edema Skin: No rashes, no jaundice. Neurological: Nonresponsive, on mechanical ventilation - Labs CBC & Chem 7: 10/19/20 05:00 10/19/20 05:00 Labs: Abnormal Lab Results - Last 24 Hours (Table) 10/18/20 10/18/20 10/18/20 Range/Units 11:39 14:38 15:47 WBC (3.8-10.6) k/uL RBC (3.80-5.40) m/uL MCV (80.0-100.0) fL Plt Count (150-450) k/uL Neutrophils # (Manual) (1.3-7.7) k/uL ABG pH (7.35-7.45) ABG pCO2 (35-45) mmHg ABG pO2 (83-108) mmHg ABG O2 Saturation (94-97) % Potassium 3.2 L (3.5-5.1) mmol/L Chloride (98-107) mmol/L Creatinine (0.52-1.04) mg/dL Glucose (74-99) mg/dL POC Glucose (mg/dL) 172 H (75-99) mg/dL Plasma Lactic Acid Eduar 3.5 H* (0.7-2.0) mmol/L Calcium (8.4-10.2) mg/dL Total Bilirubin (0.2-1.3) mg/dL AST (14-36) U/L ALT (4-34) U/L Ammonia (<30) umol/L Total Protein (6.3-8.2) g/dL Total Protein (PEP) (6.2-8.2) g/dL Albumin (3.5-5.0) g/dL 10/18/20 10/18/20 10/18/20 Range/Units 17:02 17:44 17:44 WBC (3.8-10.6) k/uL RBC (3.80-5.40) m/uL MCV (80.0-100.0) fL Plt Count (150-450) k/uL Neutrophils # (Manual) (1.3-7.7) k/uL ABG pH (7.35-7.45) ABG pCO2 (35-45) mmHg ABG pO2 (83-108) mmHg ABG O2 Saturation (94-97) % Potassium (3.5-5.1) mmol/L Chloride (98-107) mmol/L Creatinine (0.52-1.04) mg/dL Glucose (74-99) mg/dL POC Glucose (mg/dL) 117 H (75-99) mg/dL Plasma Lactic Acid Eduar 3.0 H* (0.7-2.0) mmol/L Calcium (8.4-10.2) mg/dL Total Bilirubin (0.2-1.3) mg/dL AST (14-36) U/L ALT (4-34) U/L Ammonia (<30) umol/L Total Protein (6.3-8.2) g/dL Total Protein (PEP) 2.9 L (6.2-8.2) g/dL Albumin (3.5-5.0) g/dL 10/19/20 10/19/20 10/19/20 Range/Units 05:00 05:00 05:00 WBC 23.3 H (3.8-10.6) k/uL RBC 3.74 L (3.80-5.40) m/uL MCV 100.4 H (80.0-100.0) fL Plt Count 126 L (150-450) k/uL Neutrophils # (Manual) 21.40 H (1.3-7.7) k/uL ABG pH (7.35-7.45) ABG pCO2 (35-45) mmHg ABG pO2 (83-108) mmHg ABG O2 Saturation (94-97) % Potassium (3.5-5.1) mmol/L Chloride 116 H (98-107) mmol/L Creatinine 1.22 H (0.52-1.04) mg/dL Glucose 113 H (74-99) mg/dL POC Glucose (mg/dL) (75-99) mg/dL Plasma Lactic Acid Eduar (0.7-2.0) mmol/L Calcium 7.2 L (8.4-10.2) mg/dL Total Bilirubin 4.2 H (0.2-1.3) mg/dL AST 49 H (14-36) U/L ALT 57 H (4-34) U/L Ammonia 106 H (<30) umol/L Total Protein 3.5 L (6.3-8.2) g/dL Total Protein (PEP) (6.2-8.2) g/dL Albumin 1.3 L (3.5-5.0) g/dL 10/19/20 10/19/20 Range/Units 05:20 06:19 WBC (3.8-10.6) k/uL RBC (3.80-5.40) m/uL MCV (80.0-100.0) fL Plt Count (150-450) k/uL Neutrophils # (Manual) (1.3-7.7) k/uL ABG pH 7.50 H (7.35-7.45) ABG pCO2 30 L (35-45) mmHg ABG pO2 71 L (83-108) mmHg ABG O2 Saturation 92.3 L (94-97) % Potassium (3.5-5.1) mmol/L Chloride (98-107) mmol/L Creatinine (0.52-1.04) mg/dL Glucose (74-99) mg/dL POC Glucose (mg/dL) 101 H (75-99) mg/dL Plasma Lactic Acid Eduar (0.7-2.0) mmol/L Calcium (8.4-10.2) mg/dL Total Bilirubin (0.2-1.3) mg/dL AST (14-36) U/L ALT (4-34) U/L Ammonia (<30) umol/L Total Protein (6.3-8.2) g/dL Total Protein (PEP) (6.2-8.2) g/dL Albumin (3.5-5.0) g/dL Microbiology - Last 24 Hours (Table) 10/17/20 07:35 Gram Stain - Preliminary Sputum Sputum Culture - Preliminary Escherichia coli Assessment and Plan (1) Elevated liver enzymes Narrative/Plan: 60-year-old female with multiple medical comorbidities including 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 Patient was found by her unresponsive and EMS was called. Patient found to have elevated liver enzymes on presentation with total bilirubin 3.1, alkaline phosphatase 194, AST 62 and ALT 70 with an ammonia level of 154. No reported history of alcoholic liver disease or chronic liver disease however limited history from the family and upon the review of the medical record as the patient is unable to provide history at this time. Currently she is receiving lactulose and Xifaxan therapy and intubated in the ICU. The liver serology ordered, acetaminophen level ordered which was less than 10, hepatitis serology ordered negative 3. Current Visit: Yes Status: Acute Code(s): R74.8 - ABNORMAL LEVELS OF OTHER SERUM ENZYMES SNOMED Code(s): 563719940 (2) Hepatic encephalopathy Narrative/Plan: Primary team ordered EEG, pending. Current Visit: Yes Status: Acute Code(s): K72.90 - HEPATIC FAILURE, UNSPECIFIED WITHOUT COMA SNOMED Code(s): 27309837 Plan: Supportive care Nothing by mouth Continue ICU management Continue monitor CBC, BMP, LFTs and INR Acetaminophen level ordered and reviewed Acute viral hepatitis panel ordered and reviewed Ultrasound of the abdomen ordered and reviewed Continue rifaximin therapy twice daily Continue lactulose therapy and titrate for 3-[address] of abdomen was ordered and reviewed, showing no evidence of liver mass. Continue to monitor clinically Full liver serology ordered, pending Thank you for allowing us to participate in the care of the patient we will continue to follow Dr. Uyen Oliveira I agree with the dictator's note, documented as a scribe by Yulissa Mccartney.
--- NOTE | 2020-10-19 15:51 | PN ---
PROGRESS NOTE Patient is seen for followup for acute kidney injury. The patient was admitted to the hospital with mental status changes and unresponsiveness. She was intubated. She has a history of chronic liver disease and history of drug abuse. Her current urine screen was positive for tricyclic antidepressants. The patient has been on the vent. She was maintained on IV fluids for hypotension and lactic acidosis. This has now improved. Serum creatinine is down to 1.2 from peak of 1.83 mg/dL. Patient has had adequate urine output. Currently staying at about 30 to 40 mL an hour. PHYSICAL EXAMINATION: On examination today, patient is sedated. She is on the vent. Blood pressure this morning 126/67, heart rate 90 per minute. She is afebrile. EXAMINATION OF THE HEART: S1, S2. EXAMINATION OF THE LUNGS: Bilateral breath sounds are heard. Patient is on the vent. Abdomen is soft, nontender. Examination of lower extremities shows edema 2+ bilaterally. [employer] exam cannot be performed. LABS: Labs show sodium of 142, potassium 3.5, chloride 116, BUN 14, creatinine 1.2, hemoglobin 11.7 g/dL. ASSESSMENT: 1. Acute kidney injury secondary to sepsis, hypotension, hypoperfusion, currently improved. 2. History of Annamaria-Stoll syndrome, status post partial gastrectomy and pancreatectomy. 3. Mental status changes, most likely associated with hepatic encephalopathy, sepsis. 4. Lactic acidosis from hypotension, hypoperfusion, now improved. 5. Chronic liver disease, liver cirrhosis. 6. Third spacing with lower extremity edema, low albumin levels and status post fluid resuscitation. PLAN: Discontinue IV fluids and repeat labs in a.m. MMODL / IJN: [id number] /
[2020-10-19 18:18] LABS: Glucose,Whole Blood 140 mg/dL (75-99)
--- NOTE | 2020-10-19 19:32 | P.PN ---
Progress Note - Text Progress Note Date: 10/19/20 Chief Complaint: Unresponsive History of presenting complaint: This is a 60-year-old patient came to the ER as she was unresponsive. 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 As per the EMS and ER physician: The previous night the patient was fine and this morning the woke up she was unresponsive for at least 6 hours and then he decided to call the ambulance up to 6 hours. Patient not able to walk to respond but able to respond to touch. And sometimes she would groan. Ammonia level in the ER was 129. Computed tomography scan of the brain was unremarkable. NG tube was placed. Started on lactulose. Patient then became hypoxic overnight. She was put on 100% nonrebreather facemask. And finally had to be intubated. Admitted with-episode of unresponsiveness, high ammonia levels, acute hypoxic respiratory failure requiring ventilator support, severe protein calorie malnutrition, severe thrombocytopenia, along pro time, acute kidney injury likely ATN, hypotensive shock requiring norepinephrine. Had a left-sided pneumothorax following line placement, on Thora-vent Today-ICU: Patient is a bit awake today. Does open eyes to verbal cue. Epinephrine was discontinued. On the ventilator with FiO2 40 and a PEEP of 5. Telemetry-sinus rhythm. Had EEG earlier today. Possible nonconvulsive status per neurology. Patient has been on Keppra. Review of systems: Cannot be done patient is intubated Active Medications Chlorhexidine Gluconate (Chlorhexidine Gluconate 15 Ml Cup) 15 ml MUCOUS MEM BID [facility] Last Admin: 10/19/20 07:59 Dose: 15 ml Documented by: Sodium Chloride (Saline 0.9%) 1,000 mls @ 50 mls/hr IV .Q20H [facility] Last Admin: 10/19/20 18:31 Dose: 50 mls/hr Documented by: Levetiracetam 1,000 mg/ IV (Solution) 100 mls @ 400 mls/hr IVPB Q12HR [facility] Last Admin: 10/19/20 07:59 Dose: 400 mls/hr Documented by: Piperacillin Sod/Tazobactam (Sod 3.375 gm/ Sodium Chloride) 100 mls @ 25 mls/hr IVPB Q8HR [facility] Last Admin: 10/19/20 16:55 Dose: 25 mls/hr Documented by: Insulin Aspart (Insulin Aspart (Novolog) 100 Unit/Ml Vial) 0 unit SQ Q6HR [facility]; Protocol Last Admin: 10/19/20 18:29 Dose: 1 unit Documented by: Lactulose (Lactulose 20 Gm/30 Ml Cup) 30 gm PO DAILY [facility] Miscellaneous Information (Magnesium Replacement Protocol 1 Each Misc) 1 each MISCELLANE DAILY PRN; Protocol PRN Reason: Per Protocol Miscellaneous Information (Potassium Replacement Protocol 1 Each Misc) 1 each MISCELLANE DAILY PRN; Protocol PRN Reason: Per Protocol Naloxone HCl (Naloxone 0.4 Mg/Ml 1 Ml Vial) 0.2 mg IV Q2M PRN PRN Reason: Opioid Reversal Pantoprazole Sodium (Pantoprazole 40 Mg/10 Ml Vial) 40 mg IV DAILY [facility] Last Admin: 10/19/20 07:59 Dose: 40 mg Documented by: Rifaximin (Rifaximin 550 Mg Tablet) 550 mg NG-TUBE BID [facility] Stop: 11/16/20 09:01 Last Admin: 10/19/20 07:59 Dose: 550 mg Documented by: Past medical history to include: Memory impairment, osteoporosis, seizure disorder, Annamaria-Stoll syndrome status post resection of partial gastrectomy and head of the pancreas, history of anxiety depression, Social history: Lives with her Family history: Patient cannot tell intubated. Physical examination: VITAL SIGNS: 97.3, 90, 31, 126/67, 98% on the ventilator GENERAL diffuse wasting of muscles including the temples. EYES: Pupils equal. Conjunctiva normal. HEENT: External appearance of nose and ears normal, oral cavity dry. Endotracheal tube. NECK: JVD unable to assess; masses not palpable. HEART: First and second heart sounds are normal; no edema. LUNGS: Respiratory rate normal; decreased breath sounds. ABDOMEN: Soft, nontender, liver spleen not palpable, no masses palpable. PSYCH: Patient sedated. NEUROLOGICAL: Cranial nerves grossly intact; no facial asymmetry, distant to open eyes partially on verbal cue, and to pain stimuli INVESTIGATIONS, reviewed in the clinical context: October 19: WBC 23.3 hemoglobin 11.7 potassium 3.5 creatinine 1.2 to AST 49 ALT 57 October 18: White count 23.5 hemoglobin 11.3 pro time 19.8 potassium 3.3 creatinine 1.37 ammonia 108 albumin 1.2 Is getting chest abdomen pelvis-large partially imaged left-sided pneumothorax, infrahilar and basilar infiltrates, hepatomegaly, anasarca EEG-showing evidence of generalized cerebral dysfunction. No seizure activity recorded. White count 7 hemoglobin 13.2 platelets 217 potassium 3.9 creatinine 1.83 lactic acid 5 AST 62 ALT 70, albumin 1.4 Acute hepatitis screen for A, B, and C nonreactive UA showing trace blood, Liver ultrasound-markedly abnormal appearance of the liver which is heterogenous and hyperattenuating most likely fatty infiltration/diffuse or parasellar disease. 2-D echocardiogram-a 50-45% Admission testing: White count 13 hemoglobin 12.1 platelets 55 pro time 20.2 potassium 4.4 creatinine 1.47 ammonia 129 AST 65 ALT 71 albumin 1.4 Urine drug screen positive for-try cyclic antidepressants Coronavirus [PCR]-not detected Chest x-ray film-patchy right basilar atelectasis. Some left basilar infiltrate. Computed tomography scan brain-some chronic changes EKG tracing personally reviewed by me-normal sinus rhythm, nonspecific ST/T-wave changes Assessment and plan: -This is a patient who was found to be unresponsive at home and was so for at least 6 hours before called the EMS. Ammonia level was found to be high. 129. NG tube was placed on lactulose. Probable hepatic encephalopathy.on xifaxin -Suspect anoxic brain injury. 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 Patient will IV Keppra. Discussed with Dr. Grider. Because of persistent abnormality will be given some Dilantin. -Acute hypoxic respiratory failure requiring ventilator support-slow to respond -Primary osteoarthritis -History of Annamaria-Stoll syndrome status post resection of the head of the pancreas and partial gastrectomy -Severe protein calorie malnutrition-patient is diffuse wasting of muscles loss of subcutaneous fat low albumin -Significant thrombocytopenia cause unknown -Prolonged pro time. Could be from vitamin K deficiency from liver disease and poor oral intake -Acute kidney injury, could be ATN. Given patient's low muscle mass this is a rather significant elevation in creatinine. Renal ultrasound. Dyazide discontinued -Hypotensive shock - epinephrine, now discontinued -Large left-sided pneumothorax iatrogenic from line placement, on Thora-vent -Full code Continue with ventilator support. IV Dilantin being given. IV hydration. Off levo fed. Prognosis guarded. Follow labs.
--- NOTE | 2020-10-19 21:55 | EEG ---
ELECTROENCEPHALOGRAM REPORT DATE OF SERVICE: 10/19/2020. PREAMBLE: This is a 60-year-old female with a history of hepatic encephalopathy and possible nonconvulsive status. This is a follow-up EEG performed. EEG FINDINGS: This is a 21-channel portable EEG recording in a patient utilizing 10/20 international system with referential and bipolar montages. The background consists of moderately well developed and poorly regulated mixed frequencies of 4-6 hertz theta intermixed with some delta activity. Frequent high-amplitude bilateral symmetric sharp- appearing waves were seen, which at times appeared triphasic, and occasionally with some phase reversal and epileptiform in nature. At the end of the recording, these rhythmic sharp waves became more regular. Photic driving response was not seen. Different stages of sleep were not seen. IMPRESSION: Abnormal EEG due to presence of diffuse slowing of moderate to severe degree, suggestive of generalized cerebral dysfunction as can be seen with toxic metabolic encephalopathy. Presence of triphasic waves is suggestive of hepatic encephalopathy. Intermittent sharp waves seen in bihemispheric region also suggest underlying cortical irritability and tendency for seizures. When compared to the EEG from yesterday, there is overall improvement in the period of background activity and less high amplitude generalized activity. The patient was given a loading dose of Dilantin, and a subsequent EEG performed at 5:32 p.m. revealed generalized triphasic waves seen throughout the recording. No epileptiform activity was seen in this follow up brief study. This study is consistent with hepatic encephalopathy. Clinical correlation and follow-up EEG are recommended. MMYOLIS / THANGN: [id number] / MTDD
[2020-10-19 23:41] LABS: Glucose,Whole Blood 133 mg/dL (75-99)
[2020-10-20 04:35] LABS: Basophils # (A) 0.1 k/uL (0-0.2); Basophils % (A) 0 %; Eosinophils % (A) 0 %; HCT 32.1 % (34.0-46.0); HGB 10.2 gm/dL (11.4-16.0); Lymphocytes # (A) 2.1 k/uL (1.0-4.8); Lymphocytes % (A) 8 %; MCH 32.1 pg (25.0-35.0); MCHC 31.8 g/dL (31.0-37.0); MCV 100.9 fL (80.0-100.0); Mean Platelet Volume 11.3; Monocytes # (A) 0.4 k/uL (0-1.0); Monocytes % (A) 2 %; Neutrophils # (A) 22.1 k/uL (1.3-7.7); Neutrophils % (A) 89 %; Platelet Count 103 k/uL (150-450); RBC 3.18 m/uL (3.80-5.40); RDW 12.8 % (11.5-15.5); WBC 24.7 k/uL (3.8-10.6)
[2020-10-20 04:48] LABS: ABG Base Excess 1.2 mmol/L; ABG HCO3 25 mmol/L (21-25); ABG Oxygen Saturation 95.2 % (94-97); ABG PCO2 34 mmHg (35-45); ABG PH 7.47 (7.35-7.45); ABG PO2 93 mmHg (83-108); ABG TCO2 26 mmol/L (19-24); Allen Test Performed? Yes
[2020-10-20 04:54] LABS: Albumin 1.2 g/dL (3.5-5.0); Calcium 7.5 mg/dL (8.4-10.2); Total Bilirubin 3.7 mg/dL (0.2-1.3); Total Protein 3.3 g/dL (6.3-8.2)
[2020-10-20 06:10] LABS: Glucose,Whole Blood 118 mg/dL (75-99)
[2020-10-20] MEDS: INSULIN ASPART (NovoLOG) 100 UNIT/ML VIAL SQ SCH ×3 (06:18→11:56)
--- NOTE | 2020-10-20 08:00 | XR ---
EXAMINATION TYPE: XR chest 1V portable DATE OF EXAM: 10/20/2020 Comparison: 10/19/2020 Clinical History: 60-year-old female Tube placement Findings: ET tube tip approximately 2 cm from the alvin. This can be pulled back by 1.5 cm and reassessed at f ollow-up. Left subclavian CVC tip at the upper right atrium. NG tube courses below the diaphragm. Con tinued subcutaneous emphysema on the left with a Thora vent catheter but now with an enlarging left-s ided pneumothorax measuring approximately 3.8 cm from the apex versus 1.1 cm, previously. Lateral and basilar components are present now measuring 1.3 cm and 1.9 cm, respectively. Continued patchy left basilar opacity. Slight increasing medial right basilar opacity. Impression: 1. Stable left-sided Thoravent catheter but with enlarging, now moderate, possibly 40-50% pneumothora x. 2. ET tube tip approximately 2 cm from the alvin. Pull back by 1.5 cm and reassess at follow-up. 3. Continued infiltrate at the left base. New opacity at the medial right base.
[2020-10-20] MEDS: PIPERACILLIN-TAZOBACTAM 3.375 GM in SODIUM CHLORIDE 0.9% 100 ML IVPB SCH ×3 (08:16)
[2020-10-20] MEDS: CHLORHEXIDINE GLUCONATE 15 ML CUP MUCOUS MEM SCH (08:16)
[2020-10-20] MEDS: PANTOPRAZOLE 40 MG/10 ML VIAL IV SCH (08:17)
[2020-10-20] MEDS: RIFAXIMIN 550 MG TABLET NG-TUBE SCH (08:18)
[2020-10-20] MEDS: levETIRAcetam IV 1,000 MG in SALINE 1 100ML.BAG IVPB SCH (08:19)
[2020-10-20 08:39] VITALS: TEMP 97.9
[2020-10-20] MEDS ORDERED: FUROSEMIDE 10 MG/ML 4 ML VIAL IV STA (08:58)
--- NOTE | 2020-10-20 08:59 | P.PN ---
Subjective patient is seen in follow-up for acute kidney injury. Renal function is stable. Intubated. Quite edematous. Not on any vasopressors. Albumin level 1.2 today. Vital signs are stable. General: The patient appeared well nourished and normally developed. HEENT: Head exam is unremarkable. LUNGS: Breath sounds decreased. HEART: Rate and Rhythm are regular. ABDOMEN: soft, no gross distention noted. EXTREMITITES: 2+ edema. Objective - Vital Signs Vital signs: Vital Signs Temp 97.9 F 10/20/20 08:00 Pulse 83 10/20/20 08:00 Resp 19 10/20/20 08:00 BP 93/67 10/19/20 04:00 Pulse Ox 95 10/20/20 08:00 Intake & Output 10/19/20 10/20/20 10/20/20 18:59 06:59 18:59 Intake Total 1690 950 190 Output Total 500 270 50 Balance 1190 680 140 Weight 71.6 kg Intake: IV 300 550 100 Piperacillin-Tazobactam 3 200 .375 gm In Sodium Chloride 0.9% 100 ml @ 25 mls/hr IVPB Q12HR [facility] Rx #:[id number] Sodium Chloride 0.9% 1, 550 100 000 ml @ 50 mls/hr IV . Q20H [facility] Rx#:[id number] levETIRAcetam IV 750 mg 100 In Sodium Chloride 0.9% 100 ml @ 400 mls/hr IVPB Q12HR [facility] A Rx#:[id number] Intake, IV Titration 1300 50 Amount Phenytoin Sodium Inj 1, 100 000 mg In Sodium Chloride 0.9% 100 ml @ 200 mls/hr IVPB ONCE STA Rx#: [id number] Piperacillin-Tazobactam 3 100 .375 gm In Sodium Chloride 0.9% 100 ml @ 25 mls/hr IVPB Q12HR [facility] Rx #:[id number] Potassium Chloride 20 meq 200 In Water For Injection 1 100ml.bag @ 50 mls/hr IVPB Q2H [facility] Rx#: [id number] Sodium Chloride 0.9% 1, 900 50 000 ml @ 50 mls/hr IV . Q20H [facility] Rx#:[id number] Tube Feeding 60 260 60 Other 30 90 30 Output: Chest Tube Drainage 120 Thora-Vent Left Upper 120 Anterior Chest Urine 380 270 50 Other: Voiding Method Indwelling Catheter Indwelling Catheter ABP, PAP, CO, CI - Last Documented Arterial Blood Pressure 123/64 - Labs CBC & Chem 7: 10/20/20 04:09 10/20/20 04:09 Labs: Abnormal Lab Results - Last 24 Hours (Table) 10/18/20 10/19/20 10/19/20 Range/Units 17:44 13:29 18:14 WBC (3.8-10.6) k/uL RBC (3.80-5.40) m/uL Hgb (11.4-16.0) gm/dL Hct (34.0-46.0) % MCV (80.0-100.0) fL Plt Count (150-450) k/uL Neutrophils # (1.3-7.7) k/uL ABG pH (7.35-7.45) ABG pCO2 (35-45) mmHg ABG Total CO2 (19-24) mmol/L Chloride (98-107) mmol/L Creatinine (0.52-1.04) mg/dL Glucose (74-99) mg/dL POC Glucose (mg/dL) 122 H 140 H (75-99) mg/dL Calcium (8.4-10.2) mg/dL Total Bilirubin (0.2-1.3) mg/dL AST (14-36) U/L ALT (4-34) U/L Total Protein (6.3-8.2) g/dL Albumin (3.5-5.0) g/dL Albumin (PEP) 1.02 L (3.80-4.90) g/dL Ffcil-6-Uqdifxidd 0.41 H (0.10-0.40) g/dL Nouez-1-Anogynfin 0.38 L (0.60-1.00) g/dL Beta Globulins 0.28 L (0.60-1.30) g/dL 10/19/20 10/20/20 10/20/20 Range/Units 23:39 04:09 04:09 WBC 24.7 H (3.8-10.6) k/uL RBC 3.18 L (3.80-5.40) m/uL Hgb 10.2 L (11.4-16.0) gm/dL Hct 32.1 L (34.0-46.0) % MCV 100.9 H (80.0-100.0) fL Plt Count 103 L (150-450) k/uL Neutrophils # 22.1 H (1.3-7.7) k/uL ABG pH (7.35-7.45) ABG pCO2 (35-45) mmHg ABG Total CO2 (19-24) mmol/L Chloride 118 H (98-107) mmol/L Creatinine 1.18 H (0.52-1.04) mg/dL Glucose 142 H (74-99) mg/dL POC Glucose (mg/dL) 133 H (75-99) mg/dL Calcium 7.5 L (8.4-10.2) mg/dL Total Bilirubin 3.7 H (0.2-1.3) mg/dL AST 49 H (14-36) U/L ALT 50 H (4-34) U/L Total Protein 3.3 L (6.3-8.2) g/dL Albumin 1.2 L (3.5-5.0) g/dL Albumin (PEP) (3.80-4.90) g/dL Ileod-7-Xpbbggwji (0.10-0.40) g/dL Bmgzb-0-Pqkgdnhdp (0.60-1.00) g/dL Beta Globulins (0.60-1.30) g/dL 10/20/20 10/20/20 Range/Units 04:43 06:09 WBC (3.8-10.6) k/uL RBC (3.80-5.40) m/uL Hgb (11.4-16.0) gm/dL Hct (34.0-46.0) % MCV (80.0-100.0) fL Plt Count (150-450) k/uL Neutrophils # (1.3-7.7) k/uL ABG pH 7.47 H (7.35-7.45) ABG pCO2 34 L (35-45) mmHg ABG Total CO2 26 H (19-24) mmol/L Chloride (98-107) mmol/L Creatinine (0.52-1.04) mg/dL Glucose (74-99) mg/dL POC Glucose (mg/dL) 118 H (75-99) mg/dL Calcium (8.4-10.2) mg/dL Total Bilirubin (0.2-1.3) mg/dL AST (14-36) U/L ALT (4-34) U/L Total Protein (6.3-8.2) g/dL Albumin (3.5-5.0) g/dL Albumin (PEP) (3.80-4.90) g/dL Gfyle-6-Dwksfzkgh (0.10-0.40) g/dL Mmqqp-5-Vszcyoiye (0.60-1.00) g/dL Beta Globulins (0.60-1.30) g/dL Microbiology - Last 24 Hours (Table) 10/17/20 07:35 Gram Stain - Final Sputum Sputum Culture - Final Escherichia coli Klebsiella pneumoniae Assessment and Plan Plan: assessment: 1. acute kidney injury secondary to ATN secondary to hypotension and sepsis. Renal function stable. Creatinine 1.18 today. 2. edema secondary to third spacing from severe hypoalbuminemia. 3. Liver cirrhosis. 4. Altered mental status, possibly hepatic encephalopathy versus infection related. Neurology following. 5. Acute hypoxic respiratory failure. 6. Left-sided pneumothorax. On Thoravent. plan: Maintain tube feeding. 25 g of IV albumin 2 doses today. Lasix 40 mg IV once after first dose of albumin completed. Continue to monitor renal function and urine output.
[2020-10-20] MEDS ORDERED: LACTULOSE 20 GM/30 ML CUP PO SCH (09:00)
[2020-10-20] MEDS ORDERED: ALBUMIN HUMAN 25% 50 ML in EMPTY BAG 1 BAG IVPB SCH ×2 (09:00→21:00)
--- NOTE | 2020-10-20 09:10 | P.PN ---
Subjective Progress Note Date: 10/20/20 This is a 60-year-old female presents emergency Department because she has been unresponsive. 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 History is from EMS and the ED physcian who attended on the patient. They stated that last night the patient was fine and this morning when woke up she has been unresponsive for the last 6 hours and he decided to call the ambulance after 6 hours. According to the the patient is not been able to verbally respond were but only will respond to some tactile stimulation and she would only responded with a groan hormone. There's been no history of any recent fevers. No reported seizure activity. The blood work showed a normal white cell count of 13.0. Hemoglobin was at 12.1. Platelet count was low at 55. The patient is coagulopathic with a PT of 20, INR of 2.1 and a PTT of 43.1. Her BUN was 40 with a creatinine of 1.47. Sodium is at 134. LFTs were abnormal with an SGOT of 65, SGPT of 71 with an alkaline phosphatase of 215. Bilirubin was 2.1 with a calcium level of 6.5. The patient's ammonia level was elevated at 129. Albumin was 1.4. Troponin was 0.06. UA was positive for bilirubin otherwise negative. Urine drug screen was positive for phenylcyclidine. The COVID 19 testing was negative. Computed tomography scan of the brain showed no acute secondary process. There was mild diffuse atrophy with chronic small vessel change. The chest x-ray shows no acute abnormalities. No pleural effusion. NG tube was placed and that he was in a good location d istal portion being in the distal esophagus. The patient was started on lactulose. For now, the patient is severely normal sed rate of 100 mL an hour normal saline and the patient is also on lactulose 30 g 4 times a day. Overnight, the patient became progressively more hypoxic. The patient dropped her pulse ox down to the 80s. She has been placed on on the percent nonrebreather facemask. Ultimately because of ongoing hypoxemia and altered mentation, the patient had to be intubated and placed on a mechanical ventilator. At this point in time, I will the patient is on a assist-control 28 with a tidal volume of 400 and FiO2 of 100% with a PEEP of 5. Most recent blood gas showed a pH of 7.41 with a pCO2 of 34 and pO2 of 101. The patient was not having any good IV access. Emergency physician was contacted and they subclavian triple-lumen catheter was inserted and this line insertion. Further by an Iatrogenic Pneumothorax on the Left. Based on That, a Fluoroscopy Vent Was Inserted and There Was Reexpansion of the Left Lung. There Is Some Intermittent Air Leak Still Present on Continuous Wall Suction. The Chest X-Ray Otherwise Showed Reexpansion of the Left Lung. ET Tube Is in a Good Location. No Significant Fluid Output from the the Flovent. Left hemidiaphragm is eleva verónica. There is some atelectatic changes and left lung base. Some infiltration in the right lower lobe also present. The patient overnight was covered with IV Zosyn. NG tube still in place. The patient is receiving lactulose. Bowel movement activities in order of very small BM that occurred yesterday. Urine output is 50 mL the entire night. The patient received a total of 4.5 L total fluids and currently she is on a maintenance of 100 mL an hour. She is also sedated with propofol at 40 mcg/kg per minute. The most recent blood work from this morning shows a hemoglobin of 13.2, coagulation profile is slightly improved compared to yesterday with a PT of 13.6 and INR of 1.3 with a PTT of 43 and there is an acute kidney injury with a BUN of 15 and a creatinine of 1.8 and the lactic acid level is at 5.0. LFTs remain abnormal with SGPT of 194, SGPT of 154 and troponins are still leaking at 0.08. Albumin is at 1.4 and adjusted calcium level is within normal limits. 10/18/2020 the patient is intubated on a mechanical ventilator, currently on assist control mode at the rate of 28 with a tidal volume of 400 FiO2 of 40% with a PEEP of 5. The patient has no significant orotracheal secretions. There is a fluoroscopy vent in the left chest and today's chest x-ray shows no evidence of any pneumothorax. ET tube is about 1 cm above the alvin. There is ongoing air leak thoavent. Total amount of output from output has been in the order of 300 mL since inserted. She remains sedated and the patient was on propofol for sedation and a sedation was stopped 5:00 this morning to reevaluate her mental status. She is still receiving lactulose and had a ammonia level is on the decline. Hemodynamically, the patient remains on pressors. Overnight she received an additional 2 L of IV fluids. Her CVP is running around 10 and the patient remains on norepinephrine infusion at 0.06 mcg/kg per minute. She is in a positive fluid balance. Her white cell count is up to 23.5. Hemoglobin is 11.3. INR is at 2.0 with a PT of 19.8. The patient's renal function is stable with a creatinine of 1.3. Lactic acidosis and the decline as the lactic acid level peaked at 8.7 and currently is down to 6.2 ultrasound the liver shows marked abnormalities in the liver with heterogeneous appearance most likely on the basis of fatty infiltration or diffuse hepatocellular disease. Irregular density was also seen near the cameron hepatis for which a CAT scan of the abdomen she is currently on D5 0.5 today to 100 mL an hour. She is on IV Keppra, IV Zosyn, lactulose 4 times a day, and all of the cultures are negative for now. 10/19/2020 the patient remains intubated on a mechanical ventilator. Clinically however, she is much more awake and she is following some simple commands. She is extremely weak. She can barely squeeze my fingers upon demand. She has no strong cough or gag at this point in time and she remains intubated on a mechanical ventilator. She is still receiving lactulose 30 g every 4 hours and the patient is producing diarrhea and frequent bowel movements. Ammonia level today is down to 106. The patient is also on the facet regarding her hepatic encephalopathy. In terms of her liver function tests, AST is down to 49, ALT is down to 57, bilirubin is at 4.2, alkaline phosphatase is 109. Her alpha- fetoprotein level was negative. CAT scan of the abdomen and the liver was done today and he did not show any hepatic mass. There was a pneumothorax as expect ed on the left side and the Thoravent is in a good location. There is also some infrahilar and basilar pulmonary infiltrates in addition to ascites. There is hepatomegaly and fatty infiltration of the liver. The patient remains intubated on a mechanical ventilator. She is an assist-control mode at a rate of 28 with a tidal volume of 400 and FiO2 of 40% with a PEEP of 5. The blood gases from t [place] shows some respiratory alkalosis with a pH of 7.5 and a pCO2 of 30 and pO2 of 71. Creatinine is at 1.2. BUN of 14. EEG from yesterday shows some triphasic waves. Seizure could not be completely ruled out. The dose was increased by neurology. A repeat EEG is in progress today. The patient remains nothing by mouth for now. She is on IV Protonix. E. coli was cultured in the sputum and the patient is currently on IV Zosyn. The patient has ongoing air leak and the chest tube and the chest x-ray from today showing small left apical pneumothorax. ET tube is in a good location. She is quite debilitated and emaciated on exam. On 10/20/2020, the patient is still in the intensive care unit intubated on mechanical ventilator. She is not receiving any sedation for now. Her mentation remains altered and the patient is being treated for hepatic encephalopathy. Ammonia level was elevated and has been gradually declining as the patient was being treated with a combination of lactulose and Xifaxan. Most recent ammonia level from yesterday was down to 106. The patient's remains e ncephalopathic. The patient was seen by neurology. The patient is minimally responsive and she is opening her eyes slightly upon calling her name. She is not following commands. I discussed the case again with neurology. A repeat EEG was done. There was ongoing concern for subclinical seizures and based on that the patient was given 1 g of Dilantin in addition to Keppra and the patient is going to have another EEG today. There was improvement in the background with some extra 7 Hz. Activity. However, there was intermittent high amplitude bilateral sharp activity which obviously raises the concern for seizures which at times appeared to be triphasic. In any rate, the patient remains intubated on a mechanical ventilator. Condition on assist-control at the rate of 14 with a tidal volume of 400 and FiO2 of 40% with a PEEP of 5. The follow-up chest x- ray from today shows further worsening of the left-sided pneumothorax. The pneumothorax has expanded despite the Serevent insertion and obviously the patient may need a chest tube insertion today. Her pulse ox is 97%. She remai ns hemodynamically stable. No major changes in her oxygenation and the blood gas today shows a pH of 7.47 with a pCO2 of 34 and pO2 of 93 and an FiO2 of 40%. There is ongoing air leak through the Flovent. The patient is currently receiving enteral feeding for nutritional support in the form of vital high protein at the rate of 30 mL an hour. She is having liquidy bowel movements as the patient is also receiving lactulose. Creatinine is at 1.1, BUN is at 15, white cell count is elevated at 24, her sputum was positive for E. coli and and the patient is currently on IV Zosyn. Objective - Vital Signs Vital signs: Vital Signs Temp 97.9 F 10/20/20 08:00 Pulse 83 10/20/20 08:00 Resp 19 10/20/20 08:00 BP 93/67 10/19/20 04:00 Pulse Ox 95 10/20/20 08:00 Intake & Output 10/19/20 10/20/20 10/20/20 18:59 06:59 18:59 Intake Total 1690 950 190 Output Total 500 270 50 Balance 1190 680 140 Weight 71.6 kg Intake: IV 300 550 100 Piperacillin-Tazobactam 3 200 .375 gm In Sodium Chloride 0.9% 100 ml @ 25 mls/hr IVPB Q12HR MARIA A Rx #:[id number] Sodium Chloride 0.9% 1, 550 100 000 ml @ 50 mls/hr IV . Q20H MARIA A Rx#:[id number] levETIRAcetam IV 750 mg 100 In Sodium Chloride 0.9% 100 ml @ 400 mls/hr IVPB Q12HR MARIA A Rx#:[id number] Intake, IV Titration 1300 50 Amount Phenytoin Sodium Inj 1, 100 000 mg In Sodium Chloride 0.9% 100 ml @ 200 mls/hr IVPB ONCE STA Rx#: [id number] Piperacillin-Tazobactam 3 100 .375 gm In Sodium Chloride 0.9% 100 ml @ 25 mls/hr IVPB Q12HR MARIA A Rx #:[id number] Potassium Chloride 20 meq 200 In Water For Injection 1 100ml.bag @ 50 mls/hr IVPB Q2H MARIA A Rx#: [id number] Sodium Chloride 0.9% 1, 900 50 000 ml @ 50 mls/hr IV . Q20H MARIA A Rx#:[id number] Tube Feeding 60 260 60 Other 30 90 30 Output: Chest Tube Drainage 120 Thora-Vent Left Upper 120 Anterior Chest Urine 380 270 50 Other: Voiding Method Indwelling Catheter Indwelling Catheter ABP, PAP, CO, CI - Last Documented Arterial Blood Pressure 123/64 - Exam The patient appeared unresponsive the patient currently off propofol and the patient has orogastric and NG tube is also in place. She is quite synchronous with the mechanical ventilator at this point in time. She looks quite cachectic and emaciated with temporal wasting.. Vital signs as documented. Head exam is unremarkable. No scleral icterus or corneal arcus noted. Neck is without jugular venous distension, thyromegaly, or carotid bruits. Carotid upstrokes are brisk bilaterally. Lungs are clear to auscultation and percussion. The patient has a vent inserted over the left anterior chest area. There is diminished breath on the left compared to the right as the patient has a moderate-sized pneumothorax on the left. She also has a left subclavian triple-lumen catheter Cardiac exam reveals the PMI to be normally sized and situated. Rhythm is regular. First and second heart sounds normal. No murmurs, rubs or gallops. Abdominal exam reveals normal bowel sounds, no masses, no organomegaly and no aortic enlargement. The patient's abdomen overall is soft. There is no ascites. There is a large anterior abdominal wall scar related to a previous massive abdominal surgery. Extremities are nonedematous and both femoral and pedal pulses are markedly diminished in the upper extremity. Diminished pulses in lower extremity and ex tremities are cold. Femoral pulses are present. Pedal pulses are extremely weak and thready. .Examination of the skin revealed no evidence of significant rashes, suspicious appearing nevi or other concerning lesions. Neurologically the patient is currently sedated, unresponsive, not responsive to painful stimulation. Does not respond to verbal stimulation. No facial asymmetry. Pupils around 4-5 mm in size, sluggishly reactive to light and there is no nystagmus and there is no clonus at this point in time. No seizure activity has been noted. - Labs CBC & Chem 7: 10/20/20 04:09 10/20/20 04:09 Labs: Abnormal Lab Results - Last 24 Hours (Table) 10/18/20 10/19/20 10/19/20 Range/Units 17:44 13:29 18:14 WBC (3.8-10.6) k/uL RBC (3.80-5.40) m/uL Hgb (11.4-16.0) gm/dL Hct (34.0-46.0) % MCV (80.0-100.0) fL Plt Count (150-450) k/uL Neutrophils # (1.3-7.7) k/uL ABG pH (7.35-7.45) ABG pCO2 (35-45) mmHg ABG Total CO2 (19-24) mmol/L Chloride (98-107) mmol/L Creatinine (0.52-1.04) mg/dL Glucose (74-99) mg/dL POC Glucose (mg/dL) 122 H 140 H (75-99) mg/dL Calcium (8.4-10.2) mg/dL Total Bilirubin (0.2-1.3) mg/dL AST (14-36) U/L ALT (4-34) U/L Total Protein (6.3-8.2) g/dL Albumin (3.5-5.0) g/dL Albumin (PEP) 1.02 L (3.80-4.90) g/dL Kwshs-3-Jgfvzdday 0.41 H (0.10-0.40) g/dL Taqst-7-Oryvscekm 0.38 L (0.60-1.00) g/dL Beta Globulins 0.28 L (0.60-1.30) g/dL 10/19/20 10/20/20 10/20/20 Range/Units 23:39 04:09 04:09 WBC 24.7 H (3.8-10.6) k/uL RBC 3.18 L (3.80-5.40) m/uL Hgb 10.2 L (11.4-16.0) gm/dL Hct 32.1 L (34.0-46.0) % MCV 100.9 H (80.0-100.0) fL Plt Count 103 L (150-450) k/uL Neutrophils # 22.1 H (1.3-7.7) k/uL ABG pH (7.35-7.45) ABG pCO2 (35-45) mmHg ABG Total CO2 (19-24) mmol/L Chloride 118 H (98-107) mmol/L Creatinine 1.18 H (0.52-1.04) mg/dL Glucose 142 H (74-99) mg/dL POC Glucose (mg/dL) 133 H (75-99) mg/dL Calcium 7.5 L (8.4-10.2) mg/dL Total Bilirubin 3.7 H (0.2-1.3) mg/dL AST 49 H (14-36) U/L ALT 50 H (4-34) U/L Total Protein 3.3 L (6.3-8.2) g/dL Albumin 1.2 L (3.5-5.0) g/dL Albumin (PEP) (3.80-4.90) g/dL Inytm-6-Vneiurnxm (0.10-0.40) g/dL Jbihc-2-Femrxehxb (0.60-1.00) g/dL Beta Globulins (0.60-1.30) g/dL 10/20/20 10/20/20 Range/Units 04:43 06:09 WBC (3.8-10.6) k/uL RBC (3.80-5.40) m/uL Hgb (11.4-16.0) gm/dL Hct (34.0-46.0) % MCV (80.0-100.0) fL Plt Count (150-450) k/uL Neutrophils # (1.3-7.7) k/uL ABG pH 7.47 H (7.35-7.45) ABG pCO2 34 L (35-45) mmHg ABG Total CO2 26 H (19-24) mmol/L Chloride (98-107) mmol/L Creatinine (0.52-1.04) mg/dL Glucose (74-99) mg/dL POC Glucose (mg/dL) 118 H (75-99) mg/dL Calcium (8.4-10.2) mg/dL Total Bilirubin (0.2-1.3) mg/dL AST (14-36) U/L ALT (4-34) U/L Total Protein (6.3-8.2) g/dL Albumin (3.5-5.0) g/dL Albumin (PEP) (3.80-4.90) g/dL Oxnup-3-Xxcmnxati (0.10-0.40) g/dL Glcvt-4-Uhjhklnip (0.60-1.00) g/dL Beta Globulins (0.60-1.30) g/dL Microbiology - Last 24 Hours (Table) 10/17/20 07:35 Gram Stain - Final Sputum Sputum Culture - Final Escherichia coli Klebsiella pneumoniae Assessment and Plan Plan: 1 altered mental status most likely secondary to Hepatic encephalopathy/metabolic encephalopathy , the patient presented with signs of liver failure as the patient presents with coagulopathy, elevated ammonia level, thrombocytopenia, abnormal LFTs. CAT scan of the brain showing no acute abnormalities other than cerebral atrophy. The lactulose is dropped down to 100 and the patient is having diarrhea. We will mentation is gradually improving and the patient would have her lactulose dose reduced. Also consented the patient is having ongoing subclinical seizure activity as the patient has some triphasic sharp waves. The patient is currently on a combination of Keppra and Dilantin. This could be also benzodiazepine withdrawal versus subclinical seizures. The follow-up ammonia level is pending for now. The patient on lactulose. Neurologically unchanged. She senses deep painful stimulation. She withdraws. She is not following any commands at this point in time. She doesn't track. She is on no sedation. 2 liver cirrhosis, and the patient also developed diffuse anasarca with extensive edema in all 4 extremities 3 abnormal LFTs, ultrasound the liver showed an echoic density in the cameron hepatis. Nevertheless, the CAT scan of the abdomen showed some ascites without evidence of any hepatic masses and there is no indication of intra-abdominal or pancreatic or liver mass at this point in time. 4 coagulopathy, thrombocytopenia, secondary to above 5 Acute hypoxic respiratory failure , currently intubated on a mechanical clara tilator. Chest x-ray was noted. Vent setting was noted. Blood gases was noted. The patient continues to have any iatrogenic left-sided pneumothorax. Thoravent is in place. There is ongoing air leak. There is worsening of the left-sided pneumothorax on today's evaluation. Despite the worsening in the size of the left-sided pneumothorax, the patient continues suctioning adequately and there is no evidence of any tension. 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 8 hypertension 9 chronic anxiety/depression 9 troponin leak 10 mild lactic acidosis 11. Iatrogenic left-sided pneumothorax and the patient has a thoravent in place with intermittent air leak. There is enlargement in the left-sided pneumothorax 12 hypotension, recovered 13 acute kidney injury with oligoria, improved Plan This patient has multiple organ dysfunction and she looks extremely debilitated and in a poor condition. In addition, her disease process seems to be quite extensive and terminal. I discussed this with the at the bedside. With a length discussion going through different organ dysfunction of the patient has encountered, and based on my conversation with the , the patient herself would not have wanted this type of intervention. It was his decision to intubate when she got in the emergency and he is feeling regretful knowing that he has gone against her wishes. She would've never want intubation or auto transmission mechanic al ventilation. As such, I suggested comfort care measures based on all of the information as mentioned above. He was very much agreeable to that. He wanted to proceed with comfort measures. I asked him to get his daughters up to the ICU and spent some more time and ultimately when ready, we will going to proceed with comfort care measures. I did explain to him the details of her disease process. Her chances of recovery is extremely poor specially that she has a very poor baseline performance and functional status. He was appreciative. He understands the situation. Further recommended to follow in terms of comfort care measures and we are probably going to introduce these measures later on during the day. This evaluation was done more than 30 minutes. Time with Patient: Greater than 30
[2020-10-20] MEDS: ALBUMIN HUMAN 25% 50 ML in EMPTY BAG 1 BAG IVPB SCH (10:13)
--- NOTE | 2020-10-20 11:33 | PN ---
PROGRESS NOTE DATE OF SERVICE: 10/20/2020 The patient is a 60-year-old white female admitted to the hospital with acute respiratory failure secondary to altered mental status and unresponsiveness and remains intubated and mechanically ventilated in the intensive care unit. Her overall condition remains the same. She was noted to have elevated LFTs and mild jaundice at the time of admission to the hospital with elevated ammonia levels suspicious for acute hepatic encephalopathy. She has been on oral lactulose as well as Xifaxan and so far her ammonia levels are slightly improved but her mental status remains the same. No significant change noted. She remains on broad-spectrum antibiotics for possible pneumonia. PHYSICAL EXAMINATION: VITAL SIGNS: Blood pressure is 93/67, pulse rate 83, temperature 97.9. HEENT: Examination unremarkable. Conjunctivae pink. Sclerae slightly icteric. Oral cavity, no lesions. NECK: No JVD or lymph node enlargement. CHEST: Not auscultated. HEART: Not auscultated. ABDOMEN: Soft. Bowel sounds are positive. NEURO: She is sedated on the vent. LABS: From today WBC 24.7, hemoglobin 10.2, platelets 103, BUN 15, creatinine 1.19, total bilirubin is up to 3.7, AST 49, ALT 50, alkaline phosphatase is 142. Basic metabolic panel otherwise is within normal limits. IMPRESSION: 1. Severe altered mental status/unresponsiveness secondary to metabolic encephalopathy. The patient may have a component of hepatic encephalopathy and has been on oral lactulose and Xifaxan and though the ammonia level is improving, she has no significant improvement in her mental status. She did have a CT of the brain done that showed no acute abnormalities other than mild cerebral atrophy. 2. Acute respiratory failure. 3. Elevated LFTs and jaundice with possible underlying liver cirrhosis of unclear etiology. So far, hepatitis serologies for A, B and C were negative. 4. History of seizure disorder. 5. History of Annamaria-Stoll syndrome in the past, status post pancreatectomy. RECOMMENDATIONS: 1. Continue with symptomatic and supportive care. 2. Continue with oral Xifaxan as well as lactulose at the current dose. 3. Continue management as per the ICU team. 4. As per the nursing staff, there is a consideration of making the patient comfort care. Until then, will follow with you. Thank you for this consultation. MMODL / IJN: [id number] /
[2020-10-20 11:54] LABS: Glucose,Whole Blood 158 mg/dL (75-99)
[2020-10-20] MEDS ORDERED: MORPHINE SULFATE 4 MG/ML SYRINGE IV PRN (14:02)
[2020-10-20] MEDS ORDERED: ATROPINE OPHTH SOLN 1% 5ML BTL SUBLINGUAL PRN (14:02)
[2020-10-20] MEDS ORDERED: LORazepam 2 MG/ML INJ IV PRN (14:02)
[2020-10-20] MEDS ORDERED: MORPHINE SULFATE 2 MG/ML SYRINGE IV PRN (14:02)
[2020-10-20] MEDS ORDERED: SCOPOLAMINE 1.5MG/72HR PATCH TRANSDERM SCH (14:15)
[2020-10-20] MEDS ORDERED: MORPHINE SULFATE (100 MG/2 ML) 100 MG in SODIUM CHLORIDE 0.9% 100 ML IV SCH (14:15)
[2020-10-20 15:02] VITALS: PULSE 93; RESP 21
--- NOTE | 2020-10-20 21:11 | P.DS ---
Providers Date of admission: 10/16/20 18:11 Expected date of discharge: 10/20/20 (Patient ) Attending physician: Rayray Warren Consults: 10/16/20 18:11 Consult Physician Urgent Consulting Provider: Gage Santiago Consult Reason/Comments: Hepatic encephalopathy Do you want consulting provider notified?: Yes 10/16/20 19:26 Consult Physician Urgent Consulting Provider: Tim Lomas Consult Reason/Comments: Unresponsiveness, hepatic encephalopathy Do you want consulting provider notified?: Yes 10/17/20 20:53 Consult Physician Routine Consulting Provider: Mercy Kwan Consult Reason/Comments: Kidney injury Do you want consulting provider notified?: Yes 10/18/20 14:23 Consult Physician Routine Consulting Provider: Felicita Schultz Consult Reason/Comments: mental status changes Do you want consulting provider notified?: Already Contacted Primary care physician: Jan Fitzgerald MD Hospital Course: Chief Complaint: Unresponsive History of presenting complaint: This is a 60-year-old patient came to the ER as she was unresponsive. 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 As per the EMS and ER physician: The previous night the patient was fine and this morning the woke up she was unresponsive for at least 6 hours and then he decided to call the ambulance up to 6 hours. Patient not able to walk to respond but able to respond to touch. And sometimes she would groan. Ammonia level in the ER was 129. Computed tomography scan of the brain was unremarkable. NG tube was placed. Started on lactulose. Patient then became hypoxic overnight. She was put on 100% n onrebreather facemask. And finally had to be intubated. Admitted with-episode of unresponsiveness, high ammonia levels, acute hypoxic respiratory failure requiring ventilator support, severe protein calorie malnutrition, severe thrombocytopenia, along pro time, acute kidney injury likely ATN, hypotensive shock requiring norepinephrine. Had a left-sided pneumothorax following line placement, on Thora-vent. EEG-nonconvulsive epilepsy. Patient is already on Keppra. Dilantin added. Today-ICU: Supple the patient this afternoon. had come in earlier. Had remarked vision noted wanted to be in the state. Made the patient comfort care. Care is being Descalated. Patient will be moved out of the ICU to the medical floor. Discussed with the nurse at the bedside. Late in the day patient Consultation: Dr. Uyen Oliveira in part because from GI Dr. Lomas partners from email operations manager Dr. 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 No seizure activity recorded. White count 7 hemoglobin 13.2 platelets 217 potassium 3.9 creatinine 1.83 lactic acid 5 AST 62 ALT 70, albumin 1.4 Acute hepatitis screen for A, B, and C nonreactive UA showing trace blood, Liver ultrasound-markedly abnormal appearance of the liver which is heterogenous and hyperattenuating most likely fatty infiltration/diffuse or parasellar disease. 2-D echocardiogram-a 50-45% Admission testing: White count 13 hemoglobin 12.1 platelets 55 pro time 20.2 potassium 4.4 creatinine 1.47 ammonia 129 AST 65 ALT 71 albumin 1.4 Urine drug screen positive for-try cyclic antidepressants Coronavirus [PCR]-not detected Chest x-ray film-patchy right basilar atelectasis. Some left basilar infiltrate. Computed tomography scan brain-some chronic changes EKG tracing personally reviewed by me-normal sinus rhythm, nonspecific ST/T-wave changes Cause of : Possible cirrhosis etiology unknown Assessment and plan: -This is a patient who was found to be unresponsive at home and was so for at least 6 hours before called the EMS. Ammonia level was found to be high. 129. NG tube was placed on lactulose. Probable hepatic encep halopathy.on xifaxin -Suspect anoxic brain injury. 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 Patient will IV Keppra. Discussed with Dr. Grider. Because of persistent abnormality will be given some Dilantin. -Acute hypoxic respiratory failure requiring ventilator support-slow to respond -Primary osteoarthritis -History of Annamaria-Stoll syndrome status post resection of the head of the pancreas and partial gastrectomy -Severe protein calorie malnutrition-patient is diffuse wasting of muscles loss of subcutaneous fat low albumin -Significant thrombocytopenia cause unknown -Prolonged pro time. Could be from vitamin K deficiency from liver disease and poor oral intake -Acute kidney injury, could be ATN. Given patient's low muscle mass this is a rather significant elevation in creatinine. Renal ultrasound. Dyazide discontinued -Hypotensive shock - epinephrine, now discontinued -Large left-sided pneumothorax iatrogenic from line placement, on Thora-vent Disposition: Patient Plan - Discharge Summary New Discharge Prescriptions: No Action levETIRAcetam [Keppra] 750 mg PO BID buprenorphine HCL [Subutex] 8 mg SL BID Cholestyramine (with Sugar) [Cholestyramine Packet] 4 gm PO QID Triamterene-Hctz 37.5-25Mg [Dyazide 37.5-25 Capsule] 1 cap PO DAILY Cyclobenzaprine [Flexeril] 10 mg PO TID PRN PRN Reason: Muscle Spasm clonazePAM 1 mg PO TID Discharge Medication List buprenorphine HCL [Subutex] 8 mg SL BID 09/16/15 [History] levETIRAcetam [Keppra] 750 mg PO BID 09/16/15 [History] Cholestyramine (with Sugar) [Cholestyramine Packet] 4 gm PO QID 10/16/20 [History] Cyclobenzaprine [Flexeril] 10 mg PO TID PRN 10/16/20 [History] Triamterene-Hctz 37.5-25Mg [Dyazide 37.5-25 Capsule] 1 cap PO DAILY 10/16/20 [History] clonazePAM 1 mg PO TID 10/16/20 [History] Follow up Appointment(s)/Referral(s): None,Stated [REFERRING] - 1-2 days
--- NOTE | 2020-10-24 09:30 | CDI ---
Documentation Clarification Form Date: 10/24/2020 09:10:08 AM From: America Corrigan CCS, CCDS Admit Date: 10/16/2020 06:11:00 PM Patient Name: Luz Fernandes Visit Number: [id number] Discharge Date: 10/20/2020 08:15:00 PM ATTENTION: The Clinical Documentation Specialists (CDI) and [facility] Coding Staff appreciate your assistance in clarifying documentation. Please respond to the clarification below the line at the bottom and electronically sign. The CDI & [facility] Coding staff will review the response and follow-up if needed. Please note: Queries are made part of the Legal Health Record. If you have any questions, please contact the author of this message via ITS. Dr. Rayray Warren: Sepsis is documented in the 10/18 Nephrology Consult: "Sepsis, source possibly abdominal versus pneumonia, maintained on antibiotics." Sepsis is documented in the 10/19 & 10/20 Nephrology Progress Notes: "Acute kidney injury secondary to sepsis, hypotension, hypoperfusion, currently improved. Mental status changes, most likely associated with hepatic encephalopathy, sepsis." Shock is documented in the 10/17 History & Physical: "Hypotensive Shock". Shock is also documented in the 10/17 Critical Care Progress Note: "Shock, hemodynamic monitoring. Septic Shock. A Line inserted". Per the 10/20 Discharge Summary: "Admitted with Hypotensive Shock requiring Norepinephrine.". History/Risk Factors per the patient's 10/16 ED Past Medical History: Pancreatic Cancer, stage unknown and Stomach Cancer status post removal of the pancreatic head and gastrectomy. Seizure Disorder, Annamaria-Stoll Syndrome. Clinical Indicators: Presented to the ED on 10/16 unresponsive via EMS. ED Clinical Impression: Hepatic Encephalopathy, Elevated Troponin, Hypocalcemia, Elevated Liver Enzymes, Unresponsive and Renal Insufficiency. 10/16 VS: T 97.9, P 98 - 110, R 10 - 12 - 26, BP 93/58, PO 98 2Lnc-3Lnc - 100 nrb. 10/16 LAB: WBC 13.0, Pl Ct 55, Neut 11.5 10/17 Lactic Acid 5.0 - 6.2 10/16 UA: Dark brown, Cloudy, 1+ Bilirubin 10/16 COVID-19 Negative 10/17 Sputum final culture: E Coli, Klebsiella pneumoniae Treatment 10/16: O2 2Lnc increased to 3L nc, put on nrb & subsequently intubated in ICU; IM Narcan, IV fluid bolus 1,000 mls @ 999 mls/hr q1H, IV fluid bolus 500 mls @ 999 mls/hr q31M, IV Calcium Cl 10/17: IV fluid 1,000 mls @ 100 mls/hr q10, IV Keppra, IV Zosyn, IV Levophed, IV Diprivan, IV Lasix, IV Propofol In your professional opinion, please clarify if these findings signify one of the following conditions, whether the condition is POA, and cause, if known: Sepsis o With Severe Sepsis o With Septic Shock o With Other Shock, please specify: Other, please specify: Unable to determine Present on Admission o Yes o No Identify the (suspected) organism: o E Coli o Klebsiella pneumonaie o Other Link or clarify if there is associated (due to/with): o Organ failure o Shock (Last Revision: December 2017) Possible septic shock, POA, Klebsiella pneumoniae pneumonia, POA MTDD
== END 2020-10-20 20:15 | disposition expired | DRG 871 ==
LOC: EC 14:21 → 3SCARD 18:11 → 2SICU 19:59 → 5NMEDONC 10-20 16:14
PROVIDERS: ADMIT Hospitalist; ATTEND Hospitalist
PROC: 0BH17EZ Insertion of Endotracheal Airway into Trachea, Via Natural or Artificial Opening (ICD-10-PCS; principal; 2020-10-17)
PROC: 5A1945Z Respiratory Ventilation, 24-96 Consecutive Hours (ICD-10-PCS; principal; 2020-10-17)
PROC: 04HY32Z Insertion of Monitoring Device into Lower Artery, Percutaneous Approach (ICD-10-PCS; 2020-10-17)
PROC: 4A133J1 Monitoring of Arterial Pulse, Peripheral, Percutaneous Approach (ICD-10-PCS; 2020-10-17)
PROC: 4A133B1 Monitoring of Arterial Pressure, Peripheral, Percutaneous Approach (ICD-10-PCS; 2020-10-17)
PROC: 02HV33Z Insertion of Infusion Device into Superior Vena Cava, Percutaneous Approach (ICD-10-PCS; 2020-10-17)
PROC: 0W9B30Z Drainage of Left Pleural Cavity with Drainage Device, Percutaneous Approach (ICD-10-PCS; 2020-10-17)
PROC: 3E033XZ Introduction of Vasopressor into Peripheral Vein, Percutaneous Approach (ICD-10-PCS; 2020-10-17)
PROC: 3E0G76Z Introduction of Nutritional Substance into Upper GI, Via Natural or Artificial Opening (ICD-10-PCS; 2020-10-17)
PROC: 0DH67UZ Insertion of Feeding Device into Stomach, Via Natural or Artificial Opening (ICD-10-PCS; 2020-10-17)
DX: A41.59 Other Gram-negative sepsis (principal); N17.0 Acute kidney failure with tubular necrosis; E43 Unspecified severe protein-calorie malnutrition; J96.01 Acute respiratory failure with hypoxia; G93.41 Metabolic encephalopathy; R65.21 Severe sepsis with septic shock; J15.0 Pneumonia due to Klebsiella pneumoniae; E87.4 Mixed disorder of acid-base balance; R64 Cachexia; R18.8 Other ascites; D68.4 Acquired coagulation factor deficiency; G93.1 Anoxic brain damage, not elsewhere classified; F13.239 Sedative, hypnotic or anxiolytic dependence with withdrawal, unspecified; J93.83 Other pneumothorax; K72.90 Hepatic failure, unspecified without coma; Z51.5 Encounter for palliative care; E78.5 Hyperlipidemia, unspecified; M19.90 Unspecified osteoarthritis, unspecified site; E83.51 Hypocalcemia; Z20.822 Contact with and (suspected) exposure to COVID-19; B96.20 Unspecified Escherichia coli [E. coli] as the cause of diseases classified elsewhere; D69.6 Thrombocytopenia, unspecified; G40.909 Epilepsy, unspecified, not intractable, without status epilepticus; K74.60 Unspecified cirrhosis of liver; T42.4X5A Adverse effect of benzodiazepines, initial encounter; F12.90 Cannabis use, unspecified, uncomplicated; E16.4 Increased secretion of gastrin; I10 Essential (primary) hypertension; K76.0 Fatty (change of) liver, not elsewhere classified; F41.8 Other specified anxiety disorders; Z90.710 Acquired absence of both cervix and uterus; Z90.411 Acquired partial absence of pancreas; Z85.07 Personal history of malignant neoplasm of pancreas; Z90.3 Acquired absence of stomach [part of]; Z85.028 Personal history of other malignant neoplasm of stomach; Z79.899 Other long term (current) drug therapy; Z88.8 Allergy status to other drugs, medicaments and biological substances; Z90.49 Acquired absence of other specified parts of digestive tract; Z98.890 Other specified postprocedural states; Z98.51 Tubal ligation status; Z68.26 Body mass index [BMI] 26.0-26.9, adult
CPT/HCPCS: 36415; 36600; 43753; 51702; 70450; 71045; 74177; 76705; 80053; 80074; 80143; 80306; 81001; 82103; 82105; 82140; 82390; 82805; 83516; 83605; 83735; 84100; 84132; 84165; 84484; 85025; 85610; 85730; 86038; 86376; 87070; 87077; 87186; 87205; 87635; 93005; 93306; 94002; 94003; 95816; 95819; 96361; 96372; 96374; 96375; 99291